=== PATIENT | male | born 1955 | race Caucasian/White ===

== ENCOUNTER 2016-08-21 08:42 | Outpatient (CLI) | payer BC ==
[~2016-08-21] VITALS: Ht 172.7 cm; Wt 103.5 kg
[~2016-08-21 08:42] MED LIST: AMOX500C2 PO; ETAN50PE SQ; MTP50T PO; MULT1CAP27 PO; SERT25TA PO; SULF1TAB35 PO
--- OUTSIDE RECORDS SUMMARY | 2016-08-21 08:47 | XMS REPORT | Continuity of Care Document ---
Author Author [facility] Organization [facility] Address Unknown Phone Unavailable Care Team Providers Care [facility] Winder Name Role Phone PCP Unavailable Source Comments Some departments are not documenting in the electronic medical record. If you do not see the information that you expected, contact Release of Information in the Health Information Management department at [phone] for further assistance in locating additional records.[facility] Active Allergies and Adverse Reactions Allergen [...]
[2016-08-21 08:48] VITALS: BP 137/75
[2016-08-21] MEDS ORDERED: BECL8.7A6 IH (09:01)
[2016-08-21] MEDS ORDERED: GINK60TA7 PO (09:01)
[2016-08-21] MEDS ORDERED: UBID100C17 PO (09:01)
[2016-08-21 09:48] LABS: BILIRUBIN,URINE NEGATIVE (NEGATIVE); KETONES,URINE NEGATIVE (NEGATIVE); LEUKOCYTE ESTERASE ,URINE NEGATIVE (NEGATIVE); NITRITE,URINE NEGATIVE (NEGATIVE); PH,URINE 6.5 (5-9); PROTEIN,URINE NEGATIVE (NEGATIVE); UROBILINOGEN,URINE NORMAL (NORMAL)
[2016-08-21 10:03] LABS: SQUAMOUS EPITHELIAL CELL,UR RARE /HPF
--- NOTE | 2016-08-21 14:04 | Diagnostic Imaging Report ---
PA and lateral views of the chest. INDICATION: Preoperative evaluation for brachytherapy. FINDINGS: There is a small left pleural effusion or pleural thickening. There is minimal atelectasis or scarring in the left lung base. The right lung is clear. The heart size is normal. No pneumothorax. The mediastinum and uziel appear unremarkable. IMPRESSION: Left basilar minimal atelectasis or scarring. There is associated left pleural scarring or tiny effusion. Dictated by: Dictated on workstation # [id number]
== END 2016-08-21 09:40 | disposition home or self-care (01) ==
LOC: PREOP 08:42
PROVIDERS: ATTEND Radiology Radiation Oncology
DX: Z01.818 Encounter for other preprocedural examination (principal); Z11.2 Encounter for screening for other bacterial diseases; C61 Malignant neoplasm of prostate
CPT/HCPCS: 71020; 81000; 87081; 93005

== ENCOUNTER 2016-08-28 06:00 | Day surgery (SDC) | payer BC ==
[~2016-08-28] VITALS: Ht 172.7 cm; Wt 103.5 kg
[~2016-08-28 06:00] MED LIST changes: +BECL8.7A6 IH; +GINK60TA7 PO; +UBID100C17 PO
--- OUTSIDE RECORDS SUMMARY | 2016-08-28 06:10 | XMS REPORT | Continuity of Care Document ---
Author Author [facility] Organization [facility] Address Unknown Phone Unavailable Care Team Providers Care Sustainable Agriculture Specialist Name Role Phone PCP Unavailable Source Comments Some departments are not documenting in the electronic medical record. If you do not see the information that you expected, contact Release of Information in the Health Information Management department at [phone] for further assistance in locating additional records.[facility] Active Allergies and Adverse Reactions [...]
--- OUTSIDE RECORDS SUMMARY | 2016-08-28 06:10 | XMS REPORT | Continuity of Care Document ---
Author Author [facility] Organization [facility] Address Unknown Phone Unavailable Care Team Providers Care Insole And Heel Stiffener Name Role Phone PCP Unavailable Source Comments Some departments are not documenting in the electronic medical record. If you do not see the information that you expected, contact Release of Information in the Health Information Management department at [phone] for further assistance in locating additional records.[facility] Active Allergies and Adverse Reactions Allergen Noted [...]
[2016-08-28] MEDS ORDERED: LEVOFLOXACIN 500 MG/100 ML IV 100 ML ONE (06:12)
[2016-08-28] MEDS ORDERED: LEVOFLOXACIN 500 MG/D5W 100 ML (PRE-MIX) IV ONE (06:45)
[2016-08-28] MEDS ORDERED: ROCURONIUM 50 MG/5 ML (ZEMURON) VIAL IV ONE (06:47)
[2016-08-28] MEDS ORDERED: LIDOCAINE PF 2% 10 ML (XYLOCAINE) AMP ONE (06:47)
[2016-08-28] MEDS ORDERED: proPOfol 200 MG/20 ML (DIPRIVAN) VIAL IV ONE (06:47)
[2016-08-28] MEDS ORDERED: LACTATED RINGERS 1,000 ML IV ONE ×2 (06:47→09:23)
[2016-08-28] MEDS ORDERED: ONDANSETRON 4 MG/2 ML (SDV) Z0FRAN ONE (06:47)
[2016-08-28] MEDS ORDERED: MIDAZOLAM 2 MG/2 ML (VERSED) VIAL ONE (06:47)
[2016-08-28] MEDS ORDERED: LIDOCAINE JELLY 2% (XYLOCAINE) 5 ML TUBE ONE (06:47)
[2016-08-28] MEDS ORDERED: fentaNYL INJECTION 100 MCG/2 ML AMP ONE (06:48)
--- NOTE | 2016-08-28 07:03 | Progress Note-Pre Operative ---
Pre-Operative Progress Note H&P Reviewed The H&P was reviewed, patient examined and no changes noted. Date H&P Reviewed: Aug 28, 2016 Time H&P Reviewed: 07:03 Pre-Operative Diagnosis: Ca Prostate SG BO MD Aug 28, 2016 7:03 am
--- NOTE | 2016-08-28 07:04 | Progress Note-Post Operative ---
Post-Operative Progess Note Pre-Operative Diagnosis Ca Prostate Post-Operative Diagnosis same Post-Op Procedure Note Date of Procedure: Aug 28, 2016 Name of Procedure: Brachytherapy, cystogram, Anesthesia Type SG Liu MD Aug 28, 2016 7:04 am
--- NOTE | 2016-08-28 07:05 | Discharge Inst-Urology ---
Discharge Inst-Urology Discharge Medications New, Converted, or Re-newed RX: RX on Chart Patient Instructions/Follow Up Plan Come to office Wednesday 9am to MELA brown. Please make appointment to been seen in office in 2 weeks. Discharge with brown and leg bag day time and large bag night time Showers, no bath Keep bowels soft and moving Increase oral fluids for 48 hours and then as needed. Diet and Activity as tolerated. If questions or concerns contact your physician Or seek help at emergency department. SG BO MD Aug 28, 2016 7:05 am
[2016-08-28 07:13] VITALS: BP 131/83
[2016-08-28] MEDS: LACTATED RINGERS 1,000 ML IV PRN ×2 (07:17→08:31)
[2016-08-28] MEDS ORDERED: LACTATED RINGERS 1,000 ML IV PRN (07:23)
[2016-08-28] MEDS ORDERED: SEVOFLURANE (ULTANE) 15 ML INHAL SOLN ONE ×2 (09:23→09:37)
[2016-08-28] MEDS ORDERED: MEPERIDINE (DEMEROL) INJ 50 MG/ML IVP PRN (10:00)
[2016-08-28] MEDS ORDERED: ONDANSETRON 4 MG/2 ML (SDV) Z0FRAN IVP PRN (10:00)
[2016-08-28] MEDS ORDERED: morphine INJ 10 MG/ML 1ML (SYR OR VIAL) ONE (10:05)
[2016-08-28] MEDS: morphine INJ 10 MG/ML 1ML (SYR OR VIAL) IVP PRN ×2 (10:13→10:22)
[2016-08-28 10:45] VITALS: BP 129/83
[2016-08-28] MEDS ORDERED: HYDR-3874 PO (11:00)
[2016-08-28] MEDS ORDERED: PHEN-640 PO (11:00)
[2016-08-28] MEDS ORDERED: CIPR-225 PO (11:00)
[2016-08-28 11:15] VITALS: BP 119/71
[2016-08-28 11:45] VITALS: BP 125/76
--- NOTE | 2016-08-28 17:07 | Diagnostic Imaging Report ---
Fluoroscopic view of the pelvis. INDICATION: Brachytherapy for prostate cancer. 30 cc of Omnipaque-300 and 24 seconds of fluoroscopy time was utilized. IMPRESSION: Provided image demonstrates Mendieta's catheter and contrast in the urinary bladder. There are fiducial markers below the bladder in the area of the prostate. Dictated by: Dictated on workstation # [id number]
== END 2016-08-28 12:15 | disposition home or self-care (01) ==
LOC: SDC 06:00
PROVIDERS: ATTEND Radiology Radiation Oncology
DX: C61 Malignant neoplasm of prostate (principal)
CPT/HCPCS: 0438T; 55875; 76965; 77290; 77318; 77332; 77336; 77470; 77778; 77790

== ENCOUNTER 2016-09-25 09:40 | Outpatient (RCR) | payer BC ==
--- OUTSIDE RECORDS SUMMARY | 2016-07-07 14:17 | XMS REPORT | Continuity of Care Document ---
Author Author [facility] Organization [facility] Address Unknown Phone Unavailable Care Team Providers Care Certified Driver Examiner Name Role Phone PCP Unavailable Source Comments Some departments are not documenting in the electronic medical record. If you do not see the information that you expected, contact Release of Information in the Health Information Management department at [phone] for further assistance in locating additional records.[facility] Active Allergies and Adverse Reactions Allergen Noted Date Severity Reactions Comments Penicillins 01/24/2005 Allergy recorded in SMS: PCN Current Medications Not on file Active Problems Not on file Social History Tobacco Use Types Packs/Day Years Used Date Never Assessed Plan of Care Health Maintenance Due Date Last Done Comments Physical (Comprehensive) 1962 Exam Pertussis Vaccine 1966 Tetanus Vaccine 1972 Colorectal Cancer 2005 Screening Shingles Vaccine 2015 Influenza Vaccine 04/16/2016 Results from Last 3 Months Not on file
[~2016-09-25 09:40] MED LIST changes: +CIPR-225 PO; +HYDR-3874 PO; +PHEN-640 PO
== END 2016-10-05 | disposition home or self-care (01) ==
LOC: ONC 09:40
PROVIDERS: ATTEND Radiology Radiation Oncology
DX: C61 Malignant neoplasm of prostate (principal)
CPT/HCPCS: 76873; 77290; 99215

== ENCOUNTER → 2016-11-24 | Outpatient (CLI) | payer BC ==
[2016-11-24 16:35] LABS: BLOOD UREA NITROGEN 14 MG/DL (7-18); BUN/CREATININE RATIO 20; GFR ESTIMATED > 60
== END ==
LOC: LAB 15:58
PROVIDERS: ATTEND Family Medicine
DX: R07.9 Chest pain, unspecified (principal)
CPT/HCPCS: 36415; 82565; 84520

== ENCOUNTER → 2016-11-26 | Outpatient (CLI) | payer BC ==
[~2016-11-26] MED LIST changes: +CATHETER FLUSH 10 ML SYR IV PRN; +IOHEXOL 350 MG/ML 150 ML (OMNIPAQUE 350) VIAL IV ONE; +NS 100 ML (IVPB) BAG IV ONE
--- NOTE | 2016-11-26 17:13 | Diagnostic Imaging Report ---
PROCEDURE: CT angiography of the chest with contrast. TECHNIQUE: Multiple contiguous axial images were obtained through the chest after uneventful bolus administration of intravenous contrast. Reconstructed CTA MIP acquisitions were also performed. INDICATION: Chest pressure, dizziness, shortness of air, prostate cancer, undergoing treatment. FINDINGS: There are no intraluminal pulmonary arterial filling defects. There were no findings of pulmonary arterial embolus. There is elevation of the right hemidiaphragm with subjacent basilar subsegmental atelectasis. Some mild linear scarring in the lung bases. Some heterogeneous air trapping present. No dominant blebs, bullae or cysts. No substantial bronchiectasis. There is no pneumothorax. The aorta is patent and nonaneurysmal. There is no thoracic effusion. No focal pneumonia. No hilar or mediastinal adenopathy. IMPRESSION: Negative for PE. Nonacute aorta. Chronic calcified benign pleural plaques and chronic interstitial lung disease and mild basilar atelectasis. No focal pneumonia. No acute abnormality. Dictated by: Dictated on workstation # [id number]
== END ==
LOC: RAD 15:31
PROVIDERS: ATTEND Family Medicine
DX: R07.9 Chest pain, unspecified (principal); M79.669 Pain in unspecified lower leg; C61 Malignant neoplasm of prostate
CPT/HCPCS: 71275

== ENCOUNTER → 2017-02-22 | Outpatient (CLI) | payer BC ==
[~2017-02-22] MED LIST changes: +APIX5TAB PO; -CATHETER FLUSH 10 ML SYR IV PRN; -IOHEXOL 350 MG/ML 150 ML (OMNIPAQUE 350) VIAL IV ONE; +MULT-1061 PO; -NS 100 ML (IVPB) BAG IV ONE
--- NOTE | 2017-02-22 18:14 | Diagnostic Imaging Report ---
INDICATION: Rheumatoid arthritis. EXAMINATION: Three views were obtained. FINDINGS: The alignment is normal. There is no fracture or dislocation. The soft tissues are unremarkable. IMPRESSION: No acute radiographic abnormality. Dictated by: Dictated on workstation # [id number]
--- NOTE | 2017-05-04 13:53 | Physician Query Clarification ---
PQ-Further Specificity Admission/Discharge Admission Date: Discharge Date: The medical record reflects the following clinical scenario: History/Risk Factors: RA Clinical Findings: RA of the elbow Treatment: xray rt knee Question: Can you further specify the laterality of the elbow with RA (rt, lt scar) per the clinical indicators above? The xray is of the rt knee. Please clarify if the diagnosis of RA of the elbow is not correct. Please document below. 1. Please document the laterality of the RA (lt, rt, scar) 2. Please confirm the site of the RA (elbow or knee) for this test or xray of the rt knee 3. Other, with explanation of the clinical findings. 4. Clinically undetermined, no explanation for the clinical findings. PHYSICIAN RESPONSE Can you specify per above: 1 In responding to this query, please exercise your independent professional judgment. The purpose of this communication is to more accurately reflect the complexity of your patients condition. The fact that a question is asked does not imply that any particular answer is desired or expected. Thank you for your timely response to this clarification. Requestors name: Anastasia THIS PHYSICIAN QUERY FORM IS A PERMANENT PART OF THE MEDICAL RECORD ANASTASIA CUEVAS May 04, 2017 13:53 RAHUL MOSES MD May 31, 2017 17:24
== END ==
LOC: RAD 16:45
PROVIDERS: ATTEND Family Medicine
DX: M05 Rheumatoid arthritis with rheumatoid factor (principal)
CPT/HCPCS: 73562

== ENCOUNTER 2017-02-23 13:46 | Outpatient (RCR) | payer BC ==
[~2017-02-23 13:46] MED LIST changes: -APIX5TAB PO; -MULT-1061 PO
[2017-04-08] MEDS ORDERED: APIX5TAB PO (07:50)
[2017-04-08] MEDS ORDERED: MULT-1061 PO (07:50)
== END 2017-05-15 | disposition home or self-care (01) ==
LOC: ONC 13:46
PROVIDERS: ATTEND Radiology Radiation Oncology
DX: C61 Malignant neoplasm of prostate (principal)
CPT/HCPCS: 99213

== ENCOUNTER → 2017-03-15 | Outpatient (CLI) | payer BC ==
[~2017-03-15] MED LIST changes: +APIX5TAB PO; +MULT-1061 PO
[2017-03-15 12:18] LABS: BASOPHILS % (AUTO) 0 % (0-10); EOSINOPHILS # (AUTO) 0.2 10^3/uL (0.0-0.3); EOSINOPHILS % (AUTO) 3 % (0-10); LYMPHOCYTES # (AUTO) 1.4 X 10^3 (1.0-4.0); LYMPHOCYTES % (AUTO) 18 % (12-44); MEAN CORPUSCULAR HEMOGLOBIN 31 PG (25-34); MEAN CORPUSCULAR HGB CONC 34 G/DL (32-36); MEAN CORPUSCULAR VOLUME 91 FL (80-99); MEAN PLATELET VOLUME 10.5 FL (7.4-10.4); MONOCYTES # (AUTO) 0.8 X 10^3 (0.0-1.0); MONOCYTES % (AUTO) 11 % (0-12); NEUTROPHILS # (AUTO) 5.1 X 10^3 (1.8-7.8); NEUTROPHILS % (AUTO) 68 % (42-75); PLATELET COUNT 207 10^3/uL (130-400); RED CELL DISTRIBUTION WIDTH 12.8 % (10.0-14.5); WHITE BLOOD COUNT 7.5 10^3/uL (4.3-11.0)
[2017-03-15 12:40] LABS: ALANINE AMINOTRANSFERASE 40 U/L (0-55); ALBUMIN 4.1 GM/DL (3.2-4.5); ANION GAP 8 MMOL/L (5-14); ASPARTATE AMINO TRANSFERASE 31 U/L (5-34); BILIRUBIN,TOTAL 0.7 MG/DL (0.1-1.0); BLOOD UREA NITROGEN 10 MG/DL (7-18); BUN/CREATININE RATIO 15; CALCIUM 9.2 MG/DL (8.5-10.1); CARBON DIOXIDE 27 MMOL/L (21-32); CHLORIDE 106 MMOL/L (98-107); CHOLESTEROL 157 MG/DL (< 200); CREATININE SERUM 0.68 MG/DL (0.60-1.30); DIRECT LDL 106 MG/DL (1-129); GFR ESTIMATED > 60; GLUCOSE 93 MG/DL (70-105); POTASSIUM 4.5 MMOL/L (3.6-5.0); SODIUM 141 MMOL/L (135-145); TRIGLYCERIDES 133 MG/DL (<150); VLDL CHOLESTEROL 27 MG/DL (5-40)
[2017-03-15 12:52] LABS: ERYTHROCYTE SEDIMENTATION RATE 2 MM/HR (0-30)
[2017-03-15 12:59] LABS: THYROID STIMULATING HORMONE 0.96 UIU/ML (0.35-4.94)
== END ==
LOC: CARD 10:33
PROVIDERS: ATTEND Internal Medicine Cardiovascular Disease
DX: I48.3 Typical atrial flutter (principal); R06.02 Shortness of breath; R00.2 Palpitations
CPT/HCPCS: 36415; 80053; 80061; 83735; 84443; 85025; 85652; 93306

== ENCOUNTER → 2017-03-23 | Outpatient (CLI) | payer BC ==
[~2017-03-23] VITALS: Ht 172.7 cm; Wt 103.4 kg
[~2017-03-23] MED LIST changes: -APIX5TAB PO; -MULT-1061 PO; +REGADENOSON 0.4 MG/5 ML SYR (LEXISCAN) IV ONE
[2017-03-23] MEDS: CATHETER FLUSH 10 ML SYR IV PRN ×2 (07:47→09:30)
[2017-03-23 09:28] VITALS: BP 115/75
--- NOTE | 2017-03-24 07:08 | STRESS TEST ---
DATE OF SERVICE: 03/23/2017 PROCEDURE: Resting and post regadenoson technetium 99M tetrofosmin SPECT CT imaging. ORDERING PHYSICIAN: Kylah Andrade MD PRIMARY PHYSICIAN: Nathen Lopez MD OTHER PHYSICIAN: CLINICAL DIAGNOSES: Shortness of breath, palpitations, atrial flutter. Baseline images were carried out after injection of 10.75 mCi of technetium 99M tetrofosmin. This was followed by 0.4 mg regadenoson and 32.1 mCi of technetium 99M tetrofosmin for stress imaging. The electrocardiogram showed atrial flutter with variable atrioventricular conduction. The electrocardiogram did not change significantly with the regadenoson infusion. The patient noted mild shortness of breath following regadenoson infusion, which resolved shortly thereafter. Review of images at rest and following stress does not indicate any significant perfusion defects consistent with significant myocardial ischemia or infarction. Gated images show well preserved global left ventricular systolic function without regional wall motion abnormality. Left ventricular ejection fraction is calculated to be 52%. Left ventricular end diastolic volume is 76 mL. TID is absent (1.07). CONCLUSIONS: 1. No evidence of significant myocardial ischemia or infarction on this study. 2. Normal regional wall motion. 3. Normal global left ventricular systolic function with a calculated ejection fraction of 52%. 4. The patient remained in atrial flutter throughout the study. Job ID: [id number] DocumentID: [id number] Dictated Date: 03/23/2017 15:17:12 Cattle Brander Date: 03/24/2017 04:35:03 Dictated By: KYLHA ANDRADE MD, MA, FACP, FACC,
== END ==
LOC: CARD 07:30
PROVIDERS: ATTEND Internal Medicine Cardiovascular Disease
DX: I48.3 Typical atrial flutter (principal); R06.02 Shortness of breath; R00.2 Palpitations
CPT/HCPCS: 78452; 93017

== ENCOUNTER 2017-04-08 07:03 | Day surgery (SDC) | payer BC ==
[~2017-04-08] VITALS: Ht 172.7 cm; Wt 103.4 kg
[~2017-04-08 07:03] MED LIST changes: -REGADENOSON 0.4 MG/5 ML SYR (LEXISCAN) IV ONE
[2017-04-08] MEDS ORDERED: LIDOCAINE 2% VISCOUS 15 ML UDC ONE (07:04)
[2017-04-08] MEDS ORDERED: NS IV 1000 ML 1,000 ML ONE (07:04)
--- OUTSIDE RECORDS SUMMARY | 2017-04-08 07:06 | XMS REPORT | Clinical Summary ---
Author Author [facility] Organization [facility] Address Unknown Phone Unavailable Care Team Providers Care Oil Deliverer Name Role Phone PCP Unavailable Source Comments Some departments are not documenting in the electronic medical record. If you do not see the information that you expected, contact Release of Information in the Health Information Management department at [phone] for further assistance in locating additional records.[facility] Allergies Active Allergy Reactions Severity Noted Date Comments Penicillins 01/24/2005 Allergy recorded in SMS: PCN Current Medications Not on file Active Problems Not on file Social History Tobacco Use Types Packs/Day Years Used Date Never Assessed Sex Assigned at Date Recorded Not on file Last Filed Vital Signs Not on file Plan of Treatment Health Maintenance Due Date Last Done Comments HEPATITIS C SCREENING 1955 PHYSICAL (COMPREHENSIVE) 1962 EXAM PERTUSSIS VACCINE 1966 TETANUS VACCINE 1972 COLORECTAL CANCER 2005 SCREENING SHINGLES VACCINE 2015 INFLUENZA VACCINE 04/16/2017 Results Not on filefrom Last 3 Months
[2017-04-08] MEDS ORDERED: NS IV 1000 ML 1,000 ML IV SCH (07:15)
[2017-04-08 07:21] VITALS: BP 135/91
[2017-04-08] MEDS ORDERED: MULT-1061 PO (07:50)
[2017-04-08] MEDS ORDERED: APIX5TAB PO (07:50)
[2017-04-08 07:57] LABS: MEAN PLATELET VOLUME 10.6 FL (7.4-10.4); RED BLOOD COUNT 4.9 10^6/uL (4.35-5.85); RED CELL DISTRIBUTION WIDTH 12.8 % (10.0-14.5); WHITE BLOOD COUNT 7.2 10^3/uL (4.3-11.0)
[2017-04-08 08:00] LABS: PROTHROMBIN TIME PATIENT 13.6 SEC (12.2-14.7)
[2017-04-08] MEDS ORDERED: proPOfol 200 MG/20 ML (DIPRIVAN) VIAL IV ONE (08:05)
[2017-04-08] MEDS ORDERED: MIDAZOLAM 5 MG/5 ML (VERSED) VIAL ONE (08:05)
[2017-04-08 08:08] LABS: ALANINE AMINOTRANSFERASE 34 U/L (0-55); ALBUMIN 3.8 GM/DL (3.2-4.5); ANION GAP 10 MMOL/L (5-14); ASPARTATE AMINO TRANSFERASE 27 U/L (5-34); BILIRUBIN,TOTAL 0.8 MG/DL (0.1-1.0); BLOOD UREA NITROGEN 12 MG/DL (7-18); BUN/CREATININE RATIO 20; CALCIUM 8.7 MG/DL (8.5-10.1); CARBON DIOXIDE 23 MMOL/L (21-32); CHLORIDE 108 MMOL/L (98-107); CHOLESTEROL 161 MG/DL (< 200); CREATININE SERUM 0.61 MG/DL (0.60-1.30); DIRECT LDL 116 MG/DL (1-129); GFR ESTIMATED > 60; GLUCOSE 98 MG/DL (70-105); POTASSIUM 3.8 MMOL/L (3.6-5.0); SODIUM 141 MMOL/L (135-145); TOTAL PROTEIN 6.6 GM/DL (6.4-8.2); TRIGLYCERIDES 100 MG/DL (<150); VLDL CHOLESTEROL 20 MG/DL (5-40)
[2017-04-08 09:35] VITALS: BP 130/91
[2017-04-08 09:48] VITALS: BP 101/71
--- NOTE | 2017-04-08 10:03 | Progress Note-Standard ---
Standard Progress Note Progress Notes/Assess & Plan Date Seen by Provider: Apr 08, 2017 Time Seen by Provider: 09:20 Final Diagnosis Called to [facility] for VINAYAK/Cardioversion sedation. Spoke with the patient, history obtained. Sedation started, 3 mg versed and 120 mg propofol given for procedure. Tolerated well. Care to [facility] DALE CRUZ CRNA Apr 08, 2017 10:03
--- NOTE | 2017-04-08 11:59 | Cardiac Procedure Note-CS/ASA ---
Pre-Procedure Note Pre-Op Procedure Note H&P Reviewed The H&P was reviewed, patient examined and no changes noted. Date H&P Reviewed: Apr 08, 2017 Time H&P Reviewed: 09:15 Conscious Sedation Pre-Proced Time Reviewed: 09:15 ASA Class: 3 Airway Mallampati Classification: ([place] appropriate class) I. II. III, IV Lungs Heart ASA score ASA 1: a normal healthy patient ASA 2: a patient with a mild systemic disease (mid diabetes, controlled hypertension, obesity ASA 3: a patient with a severe systemic disease that limits activity (angina , COPD, prior Myocardial infarction) ASA 4: a patient with an incapacitating disease that is a constant threat to life (CHF, renal failure) ASA 5: a moribund patient not expected to survive 24 hrs. (ruptured aneurysm) ASA 6: a declared brain patient whose organs are being harvested. For emergent operations, add the letter E after the classification Grade 4 Sedation Plan: Analgesia, Amnesia, Plan communicated to team members, Discussed options with patient/fam, Discussed risks with patient/fam Note The patient is an appropriate candidate to undergo the planned procedure, sedation, and anesthesia. The patient immediately re-assessed prior to indication. JACOB HARRELL MD FACP FAC CCDS Apr 08, 2017 11:59
--- NOTE | 2017-04-08 12:01 | Discharge Inst-Cardiology ---
Discharge Inst-Cardiac Discharge Medications Continued Medications: Apixaban (Eliquis) 5 Mg Tablet 5 MG PO BID, TAB Beclomethasone Dipropionate (Qvar) 8.7 Gm Aer.w.adap 1 PUFF IH BID, GM Etanercept (Enbrel) 50 Mg/1 Ml Pen.injctr 50 MG SQ WEEKLY takes on Wednesday Metoprolol Tartrate (Metoprolol Tartrate 50 Mg) 50 Mg Tablet 50 MG PO BID Multivit-Min/FA/Lycopen/Lutein (Centrum Silver Men Tablet) 1 Each Tablet 1 EACH PO ONCE, TAB Sertraline Hcl (Sertraline Hcl) 25 Mg Tablet 25 MG PO DAILY Ubidecarenone (Coq-10) Unknown Strength Capsule 200 MG PO DAILY, CAP Patient Instructions Patient Instructions: Fllow up with Dr Andrade next week Activity & Diet Discharge Diet: Cardiac Diet JACOB ANDRADE MD FACP FAC CCDS Apr 08, 2017 12:01
--- NOTE | 2017-04-08 17:53 | OPERATIVE REPORT ---
DATE OF SERVICE: 04/08/2017 EXTERNAL ELECTRICAL CARDIOVERSION REPORT PREOPERATIVE DIAGNOSIS: Atrial flutter. POSTOPERATIVE DIAGNOSIS: Sinus rhythm. PROCEDURE: External electrical cardioversion. The patient is a 61-year-old gentleman who has atrial flutter from which he has been symptomatic. He has been on oral anticoagulation with Apixaban since the 03/09/2017. He comes in for an elective electrical cardioversion today. We did attempt transesophageal echocardiogram prior to the study, but we were not able to pass the probe. Given the patient's chronic anticoagulation status and history of ankylosing spondylitis, we did not make any aggressive attempts at transesophageal echocardiography. He has been fully anticoagulated, without any interruptions for 4 weeks. We proceeded with external electrical cardioversion. A synchronized 50 joules shock was given which restored atrial flutter to normal sinus rhythm. He tolerated the procedure well. Job ID: [id number] DocumentID: [id number] Dictated Date: 04/08/2017 09:46:04 Display Director Date: 04/08/2017 14:50:16 Dictated By: JACOB HARRELL MD, MA, FACP, FACC,
== END 2017-04-08 14:30 | disposition home or self-care (01) ==
LOC: CATH 07:03 → ICU 10:05 → CATH 14:30
PROVIDERS: ATTEND Nurse Practitioner Family
DX: I48.92 Unspecified atrial flutter (principal); R06.02 Shortness of breath; E66.9 Obesity, unspecified; J45.909 Unspecified asthma, uncomplicated; Z80.42 Family history of malignant neoplasm of prostate; Z85.46 Personal history of malignant neoplasm of prostate; Z79.01 Long term (current) use of anticoagulants; Z79.899 Other long term (current) drug therapy; Z68.34 Body mass index [BMI] 34.0-34.9, adult
CPT/HCPCS: 36415; 80053; 80061; 85027; 85610; 85730; 87081; 92960; 93005

== ENCOUNTER 2017-05-21 19:34 | Outpatient (CLI) | payer BC ==
[~2017-05-21 19:34] MED LIST changes: +APIX5TAB PO; +MULT-1061 PO
== END 2017-05-22 06:35 | disposition home or self-care (01) ==
LOC: SLEEP 19:34
PROVIDERS: ATTEND Otolaryngology Otolaryngology/Facial Plastic Surgery
DX: R06.83 Snoring (principal); G47.10 Hypersomnia, unspecified
CPT/HCPCS: 95811

== ENCOUNTER → 2018-01-31 | Outpatient (CLI) | payer BC ==
[~2018-01-31] MED LIST changes: +HYDR-3870 PO; -HYDR-3874 PO
== END ==
LOC: CARD 08:10
PROVIDERS: ATTEND Nurse Practitioner Family
DX: R06.09 Other forms of dyspnea (principal); I48.0 Paroxysmal atrial fibrillation; I10 Essential (primary) hypertension; G47.33 Obstructive sleep apnea (adult) (pediatric); E66.9 Obesity, unspecified; I07.1 Rheumatic tricuspid insufficiency
CPT/HCPCS: 93306

== ENCOUNTER 2018-05-02 09:45 | Inpatient (IN) | payer BC ==
[~2018-05-02] VITALS: Ht 172.7 cm; Wt 103.4 kg
[2018-05-02] MEDS ORDERED: NS IV 1000 ML 1,000 ML IV ONE (10:23)
[2018-05-02] MEDS ORDERED: KETOROLAC 30 MG/ML VIAL IVP STA (10:23)
[2018-05-02] MEDS ORDERED: VANCOMYCIN INJECTION 1,000 MG in NS (IVPB) 250 ML IV ONE (10:30)
[2018-05-02] MEDS ORDERED: ACETAMINOPHEN 500 MG TAB (TYLENOL) PO ONE (10:45)
[2018-05-02 10:53] LABS: BASOPHILS % (AUTO) 0 % (0-10); EOSINOPHILS % (AUTO) 0 % (0-10); HEMATOCRIT 40 % (40-54); HEMOGLOBIN 13.6 G/DL (13.3-17.7); LYMPHOCYTES # (AUTO) 0.8 X 10^3 (1.0-4.0); LYMPHOCYTES % (AUTO) 3 % (12-44); MEAN CORPUSCULAR HEMOGLOBIN 31 PG (25-34); MEAN CORPUSCULAR HGB CONC 34 G/DL (32-36); MEAN CORPUSCULAR VOLUME 91 FL (80-99); MEAN PLATELET VOLUME 10.5 FL (7.4-10.4); MONOCYTES # (AUTO) 2.3 X 10^3 (0.0-1.0); MONOCYTES % (AUTO) 10 % (0-12); NEUTROPHILS # (AUTO) 20.2 X 10^3 (1.8-7.8); NEUTROPHILS % (AUTO) 87 % (42-75); PLATELET COUNT 162 10^3/uL (130-400); RED BLOOD COUNT 4.39 10^6/uL (4.35-5.85); RED CELL DISTRIBUTION WIDTH 12.9 % (10.0-14.5); WHITE BLOOD COUNT 23.2 10^3/uL (4.3-11.0)
[2018-05-02 11:07] LABS: INR 1.6 (0.8-1.4); PROTHROMBIN TIME PATIENT 19.3 SEC (12.2-14.7)
[2018-05-02 11:14] LABS: ALANINE AMINOTRANSFERASE 28 U/L (0-55); ALBUMIN 3.8 GM/DL (3.2-4.5); ALKALINE PHOSPHATASE 52 U/L (40-136); BILIRUBIN,TOTAL 1.7 MG/DL (0.1-1.0); BUN/CREATININE RATIO 16; CALCIUM 8.9 MG/DL (8.5-10.1); CARBON DIOXIDE 26 MMOL/L (21-32); CHLORIDE 104 MMOL/L (98-107); CREATININE SERUM 0.68 MG/DL (0.60-1.30); GFR ESTIMATED > 60; GLUCOSE 108 MG/DL (70-105); POTASSIUM 3.6 MMOL/L (3.6-5.0); SODIUM 137 MMOL/L (135-145); TOTAL PROTEIN 6.5 GM/DL (6.4-8.2)
--- NOTE | 2018-05-02 11:41 | Diagnostic Imaging Report ---
PROCEDURE: CT left lower extremity without contrast. TECHNIQUE: Multiple contiguous axial images were obtained through the left lower extremity without the use of intravenous contrast. Sagittal and coronal reformations were then performed. INDICATION: Staph infection in the left lower leg 4-5 weeks ago. Patient now complains of left knee pain and redness. FINDINGS: There is a large amount of edema identified in the pre-patellar subcutaneous tissues. Moderate subcutaneous edema extends below the knee into the left lower extremity. No definite superficial or deep soft tissue fluid collection or abscess is seen. No soft tissue gas is identified. No bony destructive changes are seen. No significant knee joint effusion is identified. IMPRESSION: Moderate subcutaneous edema consistent with cellulitis. No soft tissue gas is seen. No fluid collection is identified. No bony destructive changes are seen. Dictated by: Dictated on workstation # [id number]
[2018-05-02 11:44] LABS: BAND NEUTROPHILS 0 %; BASOPHILS % (MANUAL) 0 %; EOSINOPHILS % (MANUAL) 0 %; LYMPHOCYTES % (MANUAL) 3 %; MONOCYTES % (MANUAL) 2 %; NEUTROPHILS % (MANUAL) 95 %; RBC MORPH NORMAL
[2018-05-02 11:51] VITALS: BP 106/61
--- NOTE | 2018-05-02 11:51 | Diagnostic Imaging Report ---
PATIENT HISTORY: History of infection in the left lower leg 4 weeks ago. Now left knee pain, redness and swelling. TECHNIQUE: 3 views of the left knee COMPARISON: None FINDINGS: No acute fracture or dislocation is seen in the left knee. Alignment appears normal. The joint spaces are preserved. There is a small left knee joint effusion. Marked anterior soft tissue edema is seen. No soft tissue gas is seen. IMPRESSION: Small left knee joint effusion with marked anterior soft tissue edema. No acute osseous abnormality is seen. Dictated by: Dictated on workstation # [id number]
--- NOTE | 2018-05-02 12:35 | ED Lower Extremity ---
General Chief Complaint: Lower Extremity Stated Complaint: SWOLLEN KNEE Nursing Triage Note: PT STATES HE HAD A STAPH INFECTION IN LT LOWER LEG ABOUT 4-5 WKS AGO. PT WAS MOWING GRASS AND DOING YARD WORK YESTERDAY, PUSH MOWER AND RIDER. CC TODAY OF LT KNEE PAIN, REDNESS AND SWELLING. PT WAS RUNNING A FEVER OF 103 YESTERDAY BUT TOOK NOTHING FOR IT, 102.6 AT TRIAGE. Nursing Sepsis Screen: Possible Sepsis Risk Source: patient History of Present Illness Date Seen by Provider: May 02, 2018 Time Seen by Provider: 10:25 Initial Comments PT ARRIVES VIA POV FROM HOME C/O PAIN, REDNESS, SWELLING TO RIGHT KNEE C/O FEVER OF 103 SINCE YESTERDAY PT STATES HE WAS TREATED FOR PRESUMED "STAPH" INFECTION OF LEFT LOWER LEG 4-5 WEEKS AGO NO INJURY, NO WOUNDS/SORES OR ANY DRAINAGE TOOK KEFLEX X 7 DAYS STATES THOSE SYMPTOMS RESOLVED STATES HIS KNEE WAS "A LITTLE PUFFY" AT THAT TIME, BUT WAS NOT EVER PAINFUL PT STATES OVER THE WEEKEND, STARTING ON Wednesday04/30/18, HE BEGAN TO HAVE A LITTLE PAIN AND SWELLING TO KNEE YESTERDAY, HE BEGAN TO HAVE INCREASED PAIN TO KNEE--MOWED YARD ALL DAY WITH BOTH PUSH MOWER AND RIDING MOWER BEGAN RUNNING OF FEVER OF 103 YESTERDAY STATES HE STOPPED SWEATING AROUND 1500 YESTERDAY TODAY HE CAN NOT BEND KNEE AND CAN BARELY PUT ANY WEIGHT ON KNEE NO KNOWN INJURY NO HISTORY OF SIMILAR, BUT STATES HE HAS HAD PRESUMED "STAPH" INFECTION A FEW TIMES IN THE PAST, ONCE EVERY FEW YEARS. PT IS ON ENBREL FOR ANKYLOSING SPONDYLITIS PCP: DR. MOSES Allergies and Home Medications Allergies Coded Allergies: No Known Drug Allergies (Unverified , 09/06/11) Home Medications Apixaban 5 Mg Tablet, 5 MG PO BID, (Reported) Beclomethasone Dipropionate 10.6 Gm Hfa.aeroba, 1 PUFF INH BID, (Reported) Etanercept 50 Mg/1 Ml Pen.injctr, 50 MG INJ Bassett, (Reported) Metoprolol Succinate 200 Mg Tab.er.24h, 200 MG PO DAILY, (Reported) Multivit-Min/FA/Lycopen/Lutein 1 Each Tablet, 1 TAB PO DAILY, (Reported) Sertraline HCl 50 Mg Tablet, 25 MG PO DAILY, (Reported) TAKES 1/2 (50MG) TABLET Ubidecarenone 200 Mg Capsule, 200 MG PO DAILY, (Reported) Patient Home Medication List Home Medication List Reviewed: Yes Review of Systems Constitutional: see HPI, fever EENTM: no symptoms reported Respiratory: no symptoms reported Cardiovascular: no symptoms reported Gastrointestinal: no symptoms reported Genitourinary: no symptoms reported Musculoskeletal: see HPI Skin: see HPI Psychiatric/Neurological: No Symptoms Reported Past Pbzyzgc-Ememmw-Mvijch Hx Patient Social History Alcohol Use: Denies Use Recreational Drug Use: No Smoking Status: Never a Smoker Recent Foreign Travel: No Contact w/Someone Who Travel: No Recent Infectious Disease Expo: No Recent Hopitalizations: No Immunizations Up To Date Tetanus Booster (TDap): More than 5yrs Date of Pneumonia Vaccine: Apr 28, 2006 Date of Influenza Vaccine: May 21, 2016 Seasonal Allergies Seasonal Allergies: Yes (SOMETIMES) Past Medical History Surgeries: Yes (RIGHT HIP REPAIR, PROSTATE SEEDS IMPLANTED/BRACHYTHERAPY; CARDIOVERSION 03/2017; PROSTATE BIOPSY) Adenoidectomy, Cardiac, Gallbladder, Orthopedic, Tonsillectomy, Vasectomy Respiratory: Yes Asthma Cardiac: Yes (ATRAIL FLUTTER--S/P CARDIOVERSION 03/2017) Atrial Fibrillation, Irregular Heartbeat Neurological: No Genitourinary: Yes (PROSTATE CANCER) Prostate Problems Gastrointestinal: Yes (RT INGUINAL HERNIA) Abdominal Hernia Musculoskeletal: Yes (JOINT PROBLEMS; ANKLYOSING SPONDYLITIS) Arthritis, Chronic Back Pain Endocrine: No Loss of Vision: Bilateral Hearing Impairment: Denies Cancer: Yes Prostate Did You Recieve Any Treatments: Yes (BRACHYTHERAPY) Psychosocial: Yes Bipolar, Depression Integumentary: Yes ("STAPH" INFECTION PRESUMED) Blood Disorders: No Physical Exam Vital Signs Vital Signs - First Documented 05/02/18 10:16 Temp 102.6 Pulse 90 Resp 22 B/P (MAP) 112/65 (81) Pulse Ox 97 O2 Delivery Room Air Capillary Refill : Less Than 3 Seconds Height, Weight, BMI Height: 5'8.00" Weight: 228lbs. 0.0oz. 103.844995ih; 34.7 BMI Method:Stated General Appearance: WD/WN, no apparent distress Cardiovascular: regular rate, rhythm, no murmur Respiratory: normal breath sounds, no respiratory distress, no accessory muscle use Gastrointestinal: normal bowel sounds Legs: left leg other (LEFT KNEE WITH MARKED SWELLING, WARMTH, ERYTHEMA, VERY LIMITED ROM. DISTAL MOTOR/SENSORY/VASCULAR INTACT. ) Knees: left knee other ( ABOVE) Ankles: left ankle normal inspection Feet: left foot normal inspection Neurologic/Tendon: normal sensation, normal motor functions, normal tendon functions Neurologic/Psychiatric: traveling nurse II-XII nml as tested, no motor/sensory deficits, alert, normal mood/affect, oriented x 3 Skin: normal color, warm/dry, other ( ABOVE) Procedures/Interventions Suture Size: 4-0 Progress/Results/Core Measures Results/Orders Lab Results Laboratory Tests Test 05/02/18 10:35 05/02/18 12:10 Range/Units White Blood Count 23.2 H 4.3-11.0 10^3/uL Red Blood Count 4.39 4.35-5.85 10^6/uL Hemoglobin 13.6 13.3-17.7 G/DL Hematocrit 40 40-54 % Mean Corpuscular Volume 91 80-99 FL Mean Corpuscular Hemoglobin 31 25-34 PG Mean Corpuscular Hemoglobin Concent 34 32-36 G/DL Red Cell Distribution Width 12.9 10.0-14.5 % Platelet Count 162 130-400 10^3/uL Mean Platelet Volume 10.5 H 7.4-10.4 FL Neutrophils (%) (Auto) 87 H 42-75 % Lymphocytes (%) (Auto) 3 L 12-44 % Monocytes (%) (Auto) 10 0-12 % Eosinophils (%) (Auto) 0 0-10 % Basophils (%) (Auto) 0 0-10 % Neutrophils # (Auto) 20.2 H 1.8-7.8 X 10^3 Lymphocytes # (Auto) 0.8 L 1.0-4.0 X 10^3 Monocytes # (Auto) 2.3 H 0.0-1.0 X 10^3 Eosinophils # (Auto) 0.0 0.0-0.3 10^3/uL Basophils # (Auto) 0.0 0.0-0.1 10^3/uL Neutrophils % (Manual) 95 % Lymphocytes % (Manual) 3 % Monocytes % (Manual) 2 % Eosinophils % (Manual) 0 % Basophils % (Manual) 0 % Band Neutrophils 0 % Blood Morphology Comment NORMAL Prothrombin Time 19.3 H 12.2-14.7 SEC INR Comment 1.6 H 0.8-1.4 Activated Partial Thromboplast Time 42 H 24-35 SEC Sodium Level 137 135-145 MMOL/L Potassium Level 3.6 3.6-5.0 MMOL/L Chloride Level 104 98-107 MMOL/L Carbon Dioxide Level 26 21-32 MMOL/L Anion Gap 7 5-14 MMOL/L Blood Urea Nitrogen 11 7-18 MG/DL Creatinine 0.68 0.60-1.30 MG/DL Estimat Glomerular Filtration Rate > 60 BUN/Creatinine Ratio 16 Glucose Level 108 H 70-105 MG/DL Lactic Acid Level 1.00 0.50-2.00 MMOL/L Calcium Level 8.9 8.5-10.1 MG/DL Corrected Calcium 9.1 8.5-10.1 MG/DL Total Bilirubin 1.7 H 0.1-1.0 MG/DL Aspartate Amino Transf (AST/SGOT) 26 5-34 U/L Alanine Aminotransferase (ALT/SGPT) 28 0-55 U/L Alkaline Phosphatase 52 40-136 U/L Total Protein 6.5 6.4-8.2 GM/DL Albumin 3.8 3.2-4.5 GM/DL Body Fluid Source SYNOVIAL Body Fluid Color RED Body Fluid Appearance MKD BLDY Body Fluid WBC 30930 /uL Body Fluid RBC 08644 /uL Body Fluid Polynuclear WBCs 99 % Body Fluid Mononuclear WBCs 0 % Body Fluid Lymphocytes 1 % Body Fluid Other Cells 0 % Body Fluid Crystals NOT SEEN Micro Results Microbiology 05/02/18 Gram Stain - Preliminary, Resulted 05/02/18 Anaerobic Culture, Resulted Pending 05/02/18 Body Fluid Culture, Resulted Pending 05/02/18 Fungal Culture 1, Resulted Pending My Orders Orders - NOELLE HERNANDEZ DO Saline Lock/Iv-Start (05/02/18 10:23) Ct Extremity Lower Left Wo (05/02/18 10:23) Cbc With Automated Diff (05/02/18 10:23) Comprehensive Metabolic Panel (05/02/18 10:23) Lactic Acid Analyzer (05/02/18 10:23) Protime With Inr (05/02/18 10:23) Partial Thromboplastin Time (05/02/18 10:23) Blood Culture (05/02/18 10:23) Saline Lock/Iv-Start (05/02/18 10:23) Ns Iv 1000 Ml (Sodium Chloride 0.9%) (05/02/18 10:23) Ketorolac Injection (Toradol Injection) (05/02/18 10:23) Vancomycin Injection (Vancomycin Injecti (05/02/18 10:30) Knee, Left, 3 Views (05/02/18 10:31) Acetaminophen Tablet (Tylenol Tablet) (05/02/18 10:45) Manual Differential (05/02/18 10:35) Body Fluid Culture (05/02/18 12:17) Body Fluid Cell Count (05/02/18 12:17) Anaerobic Culture (05/02/18 12:10) Medications Given in ED Current Medications Medications Dose Ordered Sig/Miki Route Start Time Stop Time Status Last Admin Dose Admin Acetaminophen 1,000 mg ONCE ONCE PO 05/02/18 10:45 05/02/18 10:46 DC 05/02/18 10:45 1,000 MG Sodium Chloride 1,000 ml @ 0 mls/hr Q0M ONCE IV 05/02/18 10:23 05/02/18 10:26 DC 05/02/18 10:44 1,000 MLS/HR Vancomycin HCl 1000 mg/Sodium Chloride 250 ml @ 250 mls/hr ONCE ONCE IV 05/02/18 10:30 05/02/18 11:29 DC 05/02/18 11:47 250 MLS/HR Vital Signs/I&O 05/02/18 05/02/18 05/02/18 05/02/18 10:16 10:45 10:45 11:51 Temp 102.6 102.6 102.6 100.6 Pulse 90 83 Resp 22 20 B/P (MAP) 112/65 (81) 106/61 (76) Pulse Ox 97 95 O2 Delivery Room Air Room Air Blood Pressure Mean: 76 Progress Progress Note : Progress Note UNEVENTFUL ER STAY Diagnostic Imaging Comments CT SCAN LEFT LOWER EXT--SIGNIFICANT SOFT TISSUE EDEMA, NO JOINT EFFUSION--PER RADIOLOGIST REPORT AT 1145 XRAYS LEFT KNEE--SOFT TISSUE SWELLING, SMALL JOINT EFFUSION OTHERWISE NO ACUTE BONY PROCESS, PER RADIOLOGIST REPORT AT 1250 Reviewed: Reviewed by Me Departure Communication (Admissions) 1150--SPOKE WITH DR. ST, ACCEPTS PT FOR ADMIT 1157--SPOKE WITH DR. SANCHEZ FOR ORTHO CONSULT, WILL BE DOWN TO SEE PT 1204--DR. SANCHEZ HERE TO SEE PT, AND PERFORM JOINT ASPIRATION. Impression Primary Impression: Cellulitis of left knee Additional Impressions: Sepsis H/O immunosuppressive therapy Disposition: ADMITTED INPATIENT Condition: Stable Admissions Decision to Admit Reason: Admit from ER (General) Decision to Admit/Date: May 02, 2018 Time/Decision to Admit Time: 11:50 Departure-Patient Inst. Referrals: RAHUL MOSES MD (PCP/Family) Primary Care Physician NOELLE HERNANDEZ DO May 02, 2018 12:35
[2018-05-02 13:02] LABS: BODY FLUID APPEARENCE MKD BLDY; BODY FLUID COLOR RED; BODY FLUID RBC COUNT 57000 /uL; BODY FLUID SOURCE SYNOVIAL; BODY FLUID WBC TOTAL COUNT 16000 /uL
[2018-05-02 13:14] LABS: BF OTHER CELLS 0 %; LYMPHOCYTES,BODY FLUID 1 %
--- OUTSIDE RECORDS SUMMARY | 2018-05-02 13:15 | XMS REPORT | Clinical Summary ---
Author Author [facility] Organization [facility] Address Unknown Phone Unavailable Care Team Providers Care Aerospace Project Manager Name Role Phone PCP Unavailable Source Comments Some departments are not documenting in the electronic medical record. If you do not see the information that you expected, contact Release of Information in the Health Information Management department at [phone] for further assistance in locating additional records.[facility] Allergies Active Allergy Reactions Severity Noted Date [...] PHYSICAL (COMPREHENSIVE) 1962 EXAM PERTUSSIS VACCINE 1966 HIV SCREENING 1970 TETANUS VACCINE 1972 COLORECTAL CANCER 2005 SCREENING SHINGLES RECOMBINANT 2005 VACCINE (1 of 2) INFLUENZA VACCINE 05/16/2018 Results Not on filefrom Last 3 Months
--- OUTSIDE RECORDS SUMMARY | 2018-05-02 13:16 | XMS REPORT | Continuity of Care Document ---
Author Author [facility] Organization [facility] Address Unknown Phone Unavailable Allergies Active Description Code Type Severity Reaction Onset Reported/Identified Relationship to Patient Clinical Status Yes No Known Drug Allergies [id number] Drug Allergy Unknown N/A 2011 Medications There is no data. 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 12/01/2015 IRWIN PATTON APRN Ot S81.012A LACERATION WITHOUT FOREIGN BODY, LEFT KN 12/01/2015 IRWIN PATTON APRN Ot W20.8XXA OTH CAUSE OF STRIKE BY THROWN, PROJECTED 12/01/2015 IRWIN PATTON APRN Ot Y92.[address] IN [facility] NON-INSTITUT (PRIVATE 12/01/2015 IRWIN PATTON APRN Ot Y99.8 OTHER EXTERNAL CAUSE STATUS 12/03/2015 IRWIN PATTON APRN Ot 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 12/03/2015 IRWIN PATTON APRN Ot S81.012A LACERATION WITHOUT FOREIGN BODY, LEFT KN 12/03/2015 IRWIN PATTON APRN Ot W20.8XXA OTH CAUSE OF STRIKE BY THROWN, PROJECTED 12/03/2015 IRWIN PATTON APRN Ot Y92.[address] IN [facility] NON-INSTITUT (PRIVATE 12/03/2015 IRWIN PATTON FITNESS/WELLNESS DIRECTOR Ot Y99.8 OTHER EXTERNAL CAUSE STATUS 12/12/2015 JOSE DO, FILOMENA L Ot S81.012D LACERATION WITHOUT FOREIGN BODY, LEFT KN 12/13/2015 JOSE DO, FILOMENA L Ot S81.012D LACERATION WITHOUT FOREIGN BODY, LEFT KN 06/29/2016 SG BO MD Ot C61 MALIGNANT NEOPLASM OF PROSTATE 07/08/2016 EULALIO JACOB MD Ot C61 MALIGNANT NEOPLASM OF PROSTATE 07/13/2016 SG BO MD A Ot C61 MALIGNANT NEOPLASM OF PROSTATE 08/05/2016 EULALIO JACOB MD E Ot C61 MALIGNANT NEOPLASM OF PROSTATE 08/21/2016 EULALIO JACOB MD Ot C61 MALIGNANT NEOPLASM OF PROSTATE 08/21/2016 EULALIO JACOB MD Ot Z01.818 ENCOUNTER FOR OTHER PREPROCEDURAL EXAMIN 08/21/2016 EULALIO JACOB MD Ot Z11.2 ENCOUNTER FOR SCREENING FOR OTHER BACTER 08/24/2016 EULALIO JACOB MD Ot C61 MALIGNANT NEOPLASM OF PROSTATE 08/24/2016 EULALIO JACOB MD Ot Z01.818 ENCOUNTER FOR OTHER PREPROCEDURAL EXAMIN 08/24/2016 EULALIO JACOB MD Ot Z11.2 ENCOUNTER FOR SCREENING FOR OTHER BACTER 08/28/2016 EULALIO JACOB MD E Ot C61 MALIGNANT NEOPLASM OF PROSTATE 08/31/2016 EULALIO JACOB MD Ot C61 MALIGNANT NEOPLASM OF PROSTATE 09/08/2016 EULALIO JACOB MD E Ot C61 MALIGNANT NEOPLASM OF PROSTATE 09/09/2016 EULALIO JACOB MD E Ot C61 MALIGNANT NEOPLASM OF PROSTATE 09/10/2016 EULALIO JACOB MD E Ot C61 MALIGNANT NEOPLASM OF PROSTATE 10/05/2016 EULALIO JACOB MD Ot C61 MALIGNANT NEOPLASM OF PROSTATE 10/06/2016 EULALIO JACOB MD Ot C61 MALIGNANT NEOPLASM OF PROSTATE 11/25/2016 RAHUL MOSES MD R Ot R07.9 CHEST PAIN, UNSPECIFIED 11/30/2016 RAHUL MOSES MD R Ot C61 MALIGNANT NEOPLASM OF PROSTATE 11/30/2016 RAHUL MOSES MD R Ot M79.669 PAIN IN UNSPECIFIED LOWER LEG 11/30/2016 SEGLIE MD, RAHUL R Ot R07.9 CHEST PAIN, UNSPECIFIED 12/01/2016 AURELIA BARKER RAHUL R Ot C61 MALIGNANT NEOPLASM OF PROSTATE 12/01/2016 AURELIA BARKER RAHUL R Ot M79.669 PAIN IN UNSPECIFIED LOWER LEG 12/01/2016 AURELIA BARKER RAHUL R Ot R07.9 CHEST PAIN, UNSPECIFIED 12/11/2016 AURELIA BARKER RAHUL R Ot C61 MALIGNANT NEOPLASM OF PROSTATE 12/11/2016 AURELIA BARKER RAHUL R Ot M79.669 PAIN IN UNSPECIFIED LOWER LEG 12/11/2016 AURELIA BARKER RAHUL R Ot R07.9 CHEST PAIN, UNSPECIFIED 12/11/2016 AURELIA BARKER RAHUL R Ot R07.9 CHEST PAIN, UNSPECIFIED 01/07/2017 AURELIA BARKER RAHUL R Ot C61 MALIGNANT NEOPLASM OF PROSTATE 01/07/2017 AURELIA BARKER RAHUL R Ot R07.9 CHEST PAIN, UNSPECIFIED 02/24/2017 CECIL BARKER, EULALIO Bowens Ot C61 MALIGNANT NEOPLASM OF PROSTATE 03/12/2017 AURELIA BARKER RAHUL R Ot M05.729 RHEU ARTHRIT W RHEU FACTOR OF UNSP ELBOW 03/24/2017 SHARRI BARKER FACC, ALI FACP CCDS Ot I48.3 TYPICAL ATRIAL FLUTTER 03/24/2017 SHARRI BAUGHC, ALI FACP CCDS Ot R00.2 PALPITATIONS 03/24/2017 SHARRI BAUGHC, ALI FACP CCDS Ot R06.02 SHORTNESS OF BREATH 04/07/2017 SHARRI BARKER FACC, ALI FACP CCDS Ot I48.3 TYPICAL ATRIAL FLUTTER 04/07/2017 SHARRI BARKER FACC, ALI FACP CCDS Ot R00.2 PALPITATIONS 04/07/2017 SHARRI BARKER FACC, ALI FACP CCDS Ot R06.02 SHORTNESS OF BREATH 04/08/2017 THUAN MADSEN TAKE AWAY WORKER Ot E66.9 OBESITY, UNSPECIFIED 04/08/2017 THUAN MADSEN TAKE AWAY WORKER Ot I48.92 UNSPECIFIED ATRIAL FLUTTER 04/08/2017 THUAN MADSEN TAKE AWAY WORKER Ot J45.909 UNSPECIFIED ASTHMA, UNCOMPLICATED 04/08/2017 THUAN MADSEN TAKE AWAY WORKER Ot R06.02 SHORTNESS OF BREATH 04/08/2017 THUAN MADSEN TAKE AWAY WORKER Ot Z68.34 BODY MASS INDEX (BMI) 34.0-34.9, ADULT 04/08/2017 THUAN MADSEN TAKE AWAY WORKER Ot Z79.01 TAPER PRINTED CIRCUIT LAYOUT (CURRENT) USE OF ANTICOAGULANT 04/08/2017 THUAN MADSEN TAKE AWAY WORKER Ot Z79.899 OTHER TAPER PRINTED CIRCUIT LAYOUT (CURRENT) DRUG THERAPY 04/08/2017 THUAN MADSEN TAKE AWAY WORKER Ot Z80.42 FAMILY HISTORY OF MALIGNANT NEOPLASM OF 04/08/2017 THUAN MADSEN TAKE AWAY WORKER Ot Z85.46 PERSONAL HISTORY OF MALIGNANT NEOPLASM O 04/09/2017 CECIL BARKER, EULALIO Bowens Ot C61 MALIGNANT NEOPLASM OF PROSTATE 04/12/2017 SHARRI BARKER FACC, ALI FACP CCDS Ot I48.3 TYPICAL ATRIAL FLUTTER 04/12/2017 SHARRI BAUGHC, ALI FACP CCDS Ot R00.2 PALPITATIONS 04/12/2017 SHARRI BARKER FACC, ALI FACP CCDS Ot R06.02 SHORTNESS OF BREATH 05/15/2017 CECIL BARKER, EULALIO Bowens Ot C61 MALIGNANT NEOPLASM OF PROSTATE 05/18/2017 Ot 733.90 BONE CARTILAGE DIS NOS 05/18/2017 RAHUL MOSES MD R Ot M25.551 PAIN IN RIGHT HIP 05/18/2017 RAHUL MOSES MD R Ot Z87.81 PERSONAL HISTORY OF (HEALED) TRAUMATIC F 05/18/2017 BETZY BARKER, SG A Ot C61 MALIGNANT NEOPLASM OF PROSTATE 05/18/2017 RAHUL MOSES MD Ot C61 MALIGNANT NEOPLASM OF PROSTATE 05/18/2017 RAHUL MOSES MD R Ot R07.9 CHEST PAIN, UNSPECIFIED 05/18/2017 RAHUL MOSES MD R Ot R07.9 CHEST PAIN, UNSPECIFIED 05/18/2017 RAHUL MOSES MD R Ot M05.729 RHEU ARTHRIT W RHEU FACTOR OF UNSP ELBOW 05/18/2017 SHARRI BARKER FACC, ALI FACP CCDS Ot I48.3 TYPICAL ATRIAL FLUTTER 05/18/2017 SHARRI BARKER FACC, ALI FACP CCDS Ot R00.2 PALPITATIONS 05/18/2017 SHARRI BARKER FACC, ALI FACP CCDS Ot R06.02 SHORTNESS OF BREATH 05/18/2017 SHARRI BARKER [facility] Ot I48.3 TYPICAL ATRIAL FLUTTER 05/18/2017 SHARRI BARKER [facility] CCD[facility] Ot R00.2 PALPITATIONS 05/18/2017 SHARRI BARKER [facility] Ot R06.02 SHORTNESS OF BREATH 05/18/2017 CECIL BARKER, EULALIO E Ot C61 MALIGNANT NEOPLASM OF PROSTATE 05/22/2017 STONEY BARKER, SHAUNNA Castellanos Ot G47.10 HYPERSOMNIA, UNSPECIFIED 05/22/2017 STONEY BARKER, SHAUNNA Castellanos Ot R06.83 SNORING 09/08/2017 AURELIA BARKER, RAHUL R Ot M05.729 RHEU ARTHRIT W RHEU FACTOR OF UNSP ELBOW 02/15/2018 THUAN MADSEN L TAKE AWAY WORKER Ot E66.9 OBESITY, UNSPECIFIED 02/15/2018 TENA THUAN L TAKE AWAY WORKER Ot G47.33 OBSTRUCTIVE SLEEP APNEA (ADULT) (PEDIATR 02/15/2018 BRICE MADSENHER L TAKE AWAY WORKER Ot I07.1 RHEUMATIC TRICUSPID INSUFFICIENCY 02/15/2018 TENA THUAN L TAKE AWAY WORKER Ot I10 ESSENTIAL (PRIMARY) HYPERTENSION 02/15/2018 TENA THUAN L TAKE AWAY WORKER Ot I48.0 PAROXYSMAL ATRIAL FIBRILLATION 02/15/2018 TENA THUAN L TAKE AWAY WORKER Ot R06.09 OTHER FORMS OF DYSPNEA Procedures There is no data. Results Test Result Range [id number] - 06/23/16 11:25 Serum or plasma urea nitrogen measurement (mass/volume) 11 mg/dL 7-18 Serum or plasma creatinine measurement (mass/volume) 0.67 mg/dL 0.60-1.30 Serum or plasma urea nitrogen/creatinine mass ratio 16 NRG Serum or plasma creatinine measurement with calculation of estimated glomerular filtration rate > NRG Methicillin resistant Staphylococcus aureus (MRSA) screening culture - 09:24 Methicillin resistant Staphylococcus aureus (MRSA) screening culture NEG NRG Complete urinalysis with reflex to culture - 08/21/16 09:33 Urine color determination YELLOW NRG Urine clarity determination CLEAR NRG Urine pH measurement by test strip 6.5 5-9 Specific gravity of urine by test strip 1.020 1.016- 1.022 Urine protein assay by test strip, semi-quantitative NEGATIVE NEGATIVE Urine glucose detection by automated test strip NEGATIVE NEGATIVE Erythrocytes detection in urine sediment by light microscopy NEGATIVE NEGATIVE Urine ketones detection by automated test strip NEGATIVE NEGATIVE Urine nitrite detection by test strip NEGATIVE NEGATIVE Urine total bilirubin detection by test strip NEGATIVE NEGATIVE Urine urobilinogen measurement by automated test strip (mass/volume) NORMAL NORMAL Urine leukocyte esterase detection by dipstick NEGATIVE NEGATIVE Automated urine sediment erythrocyte count by microscopy (number/high power field) NONE NRG Automated urine sediment leukocyte count by microscopy (number/high power field ) NONE NRG Bacteria detection in urine sediment by light microscopy NEGATIVE NRG Squamous epithelial cells detection in urine sediment by light microscopy RARE NRG Crystals detection in urine sediment by light microscopy NONE NRG Casts detection in urine sediment by light microscopy NONE NRG Mucus detection in urine sediment by light microscopy NEGATIVE NRG Complete urinalysis with reflex to culture NO NRG [id number] - 11/24/16 16:12 Serum or plasma urea nitrogen measurement (mass/volume) 14 mg/dL 7-18 Serum or plasma creatinine measurement (mass/volume) 0.70 mg/dL 0.60-1.30 Serum or plasma urea nitrogen/creatinine mass ratio 20 NRG Serum or plasma creatinine measurement with calculation of estimated glomerular filtration rate > NRG Automated blood complete blood count (hemogram) panel - 04/08/17 07:40 Blood leukocytes automated count (number/volume) 7.2 10*3/uL 4.3-11.0 Blood erythrocytes automated count (number/volume) 4.90 10*6/uL 4.35-5.85 Venous blood hemoglobin measurement (mass/volume) 15.2 g/dL 13.3-17.7 Blood hematocrit (volume fraction) 45 % 40-54 Automated erythrocyte mean corpuscular volume 91 [foz_us] 80-99 Automated erythrocyte mean corpuscular hemoglobin (mass per erythrocyte) 31 pg 25-34 Automated erythrocyte mean corpuscular hemoglobin concentration measurement ( mass/volume) 34 g/dL 32-36 Automated erythrocyte distribution width ratio 12.8 % 10.0-14.5 Automated blood platelet count (count/volume) 191 10*3/uL 130-400 Automated blood platelet mean volume measurement 10.6 [foz_us] 7.4-10.4 PT panel in platelet poor plasma by coagulation assay - 04/08/17 07:40 Prothrombin time (PT) in platelet poor plasma by coagulation assay 13.6 s 12.2-14.7 INR in platelet poor plasma or blood by coagulation assay 1.0 0.8-1.4 Activated partial thromboplastin time (aPTT) in platelet poor plasma bycoagulation assay - 04/08/17 07:40 Activated partial thromboplastin time (aPTT) in platelet poor plasma bycoagulation assay 32 s 24-35 Comprehensive metabolic panel - 04/08/17 07:40 Serum or plasma sodium measurement (moles/volume) 141 mmol/L 135-145 Serum or plasma potassium measurement (moles/volume) 3.8 mmol/L 3.6-5.0 Serum or plasma chloride measurement (moles/volume) 108 mmol/L 98-107 Carbon dioxide 23 mmol/L 21-32 Serum or plasma anion gap determination (moles/volume) 10 mmol/L 5-14 Serum or plasma urea nitrogen measurement (mass/volume) 12 mg/dL 7-18 Serum or plasma creatinine measurement (mass/volume) 0.61 mg/dL 0.60-1.30 Serum or plasma urea nitrogen/creatinine mass ratio 20 NRG Serum or plasma creatinine measurement with calculation of estimated glomerular filtration rate > NRG Serum or plasma glucose measurement (mass/volume) 98 mg/dL 70-105 Serum or plasma calcium measurement (mass/volume) 8.7 mg/dL 8.5-10.1 Serum or plasma total bilirubin measurement (mass/volume) 0.8 mg/dL 0.1-1.0 Serum or plasma alkaline phosphatase measurement (enzymatic activity/volume) 51 U/L 40-136 Serum or plasma aspartate aminotransferase measurement (enzymatic activity/ volume) 27 U/L 5-34 Serum or plasma alanine aminotransferase measurement (enzymatic activity/volume ) 34 U/L 0-55 Serum or plasma protein measurement (mass/volume) 6.6 g/dL 6.4-8.2 Serum or plasma albumin measurement (mass/volume) 3.8 g/dL 3.2-4.5 Lipid 1996 panel - 04/08/17 07:40 Serum or plasma triglyceride measurement (mass/volume) 100 mg/dL <150 Serum or plasma cholesterol measurement (mass/volume) 161 mg/dL < 200 Serum or plasma cholesterol in HDL measurement (mass/volume) 41 mg/ dL 40-60 Cholesterol in LDL [mass/volume] in serum or plasma by direct assay 116 mg/dL 1-129 Serum or plasma cholesterol in VLDL measurement (mass/volume) 20 mg/ dL 5-40 Methicillin resistant Staphylococcus aureus (MRSA) screening culture - 07:40 Methicillin resistant Staphylococcus aureus (MRSA) screening culture NEG NRG Complete blood count (CBC) with automated white blood cell (WBC) differential - 05/02/18 10:35 Blood leukocytes automated count (number/volume) 23.2 10*3/uL 4.3-11.0 Blood erythrocytes automated count (number/volume) 4.39 10*6/uL 4.35-5.85 Venous blood hemoglobin measurement (mass/volume) 13.6 g/dL 13.3-17.7 Blood hematocrit (volume fraction) 40 % 40-54 Automated erythrocyte mean corpuscular volume 91 [foz_us] 80-99 Automated erythrocyte mean corpuscular hemoglobin (mass per erythrocyte) 31 pg 25-34 Automated erythrocyte mean corpuscular hemoglobin concentration measurement ( mass/volume) 34 g/dL 32-36 Automated erythrocyte distribution width ratio 12.9 % 10.0-14.5 Automated blood platelet count (count/volume) 162 10*3/uL 130-400 Automated blood platelet mean volume measurement 10.5 [foz_us] 7.4-10.4 Automated blood neutrophils/100 leukocytes 87 % 42-75 Automated blood lymphocytes/100 leukocytes 3 % 12-44 Blood monocytes/100 leukocytes 10 % 0-12 Automated blood eosinophils/100 leukocytes 0 % 0-10 Automated blood basophils/100 leukocytes 0 % 0-10 Blood neutrophils automated count (number/volume) 20.2 10*3 1.8-7.8 Blood lymphocytes automated count (number/volume) 0.8 10*3 1.0-4.0 Blood monocytes automated count (number/volume) 2.3 10*3 0.0-1.0 Automated eosinophil count 0.0 10*3/uL 0.0-0.3 Automated blood basophil count (count/volume) 0.0 10*3/uL 0.0-0.1 PT panel in platelet poor plasma by coagulation assay - 05/02/18 10:35 Prothrombin time (PT) in platelet poor plasma by coagulation assay 19.3 s 12.2-14.7 INR in platelet poor plasma or blood by coagulation assay 1.6 0.8-1.4 Activated partial thromboplastin time (aPTT) in platelet poor plasma bycoagulation assay - 05/02/18 10:35 Activated partial thromboplastin time (aPTT) in platelet poor plasma bycoagulation assay 42 s 24-35 Blood lactic acid measurement (moles/volume) - 05/02/18 10:35 Blood lactic acid measurement (moles/volume) 1.00 mmol/L 0.50-2.00 Comprehensive metabolic panel - 05/02/18 10:35 Serum or plasma sodium measurement (moles/volume) 137 mmol/L 135-145 Serum or plasma potassium measurement (moles/volume) 3.6 mmol/L 3.6-5.0 Serum or plasma chloride measurement (moles/volume) 104 mmol/L 98-107 Carbon dioxide 26 mmol/L 21-32 Serum or plasma anion gap determination (moles/volume) 7 mmol/L 5-14 Serum or plasma urea nitrogen measurement (mass/volume) 11 mg/dL 7-18 Serum or plasma creatinine measurement (mass/volume) 0.68 mg/dL 0.60-1.30 Serum or plasma urea nitrogen/creatinine mass ratio 16 NRG Serum or plasma creatinine measurement with calculation of estimated glomerular filtration rate > NRG Serum or plasma glucose measurement (mass/volume) 108 mg/dL 70-105 Serum or plasma calcium measurement (mass/volume) 8.9 mg/dL 8.5-10.1 Serum or plasma total bilirubin measurement (mass/volume) 1.7 mg/dL 0.1-1.0 Serum or plasma alkaline phosphatase measurement (enzymatic activity/volume) 52 U/L 40-136 Serum or plasma aspartate aminotransferase measurement (enzymatic activity/ volume) 26 U/L 5-34 Serum or plasma alanine aminotransferase measurement (enzymatic activity/volume ) 28 U/L 0-55 Serum or plasma protein measurement (mass/volume) 6.5 g/dL 6.4-8.2 Serum or plasma albumin measurement (mass/volume) 3.8 g/dL 3.2-4.5 CALCIUM CORRECTED 9.1 mg/dL 8.5-10.1 Blood manual differential performed detection - 05/02/18 10:35 Blood monocytes/100 leukocytes 2 % NRG Manual blood segmented neutrophils/100 leukocytes 95 % NRG Blood band neutrophils/100 leukocytes 0 % NRG Manual blood lymphocytes/100 leukocytes 3 % NRG Manual eosinophils/100 leukocytes in nose 0 % NRG Manual blood basophils/100 leukocytes 0 % NRG Blood erythrocyte morphology finding identification NORMAL NRG Body fluid cell count - 05/02/18 12:10 Specimen source identification of body fluid SYNOVIAL NRG Evaluation of color of body fluid RED NRG Determination of appearance of body fluid MKD BLDY NRG Body fluid leukocytes count (number/volume) 69932 /uL NRG Body fluid erythrocytes count (number/volume) 61728 /uL NRG Manual body fluid polymorphonuclear cells/100 leukocytes 99 % NRG Manual body fluid mononuclear cells/100 leukocytes 0 % NRG Manual body fluid lymphocytes/100 leukocytes 1 % NRG Other cells/100 leukocytes in body fluid by manual count 0 % NRG Encounters ACCT No. Visit Date/Time Discharge Status Pt. Type Provider Facility Loc./Unit Complaint [id number] 01/31/2018 08:10:00 01/31/2018 23:59:59 CLS Outpatient THUAN MADSEN [facility] CARD GRANADOS,PAF,HTN,POLLO [id number] 05/21/2017 19:34:00 05/22/2017 06:35:00 DIS Outpatient SHAUNNA LUA MD [facility] SLEEP SNORING,MORNING HEADACHE [id number] 05/16/2017 00:18:00 05/16/2017 23:59:59 CLS Preadmit EULALIO JACOB MD [facility] ONC [id number] 02/23/2017 13:46:00 05/15/2017 00:01:00 DIS Outpatient EULALIO JACOB MD [facility] ONC [id number] 04/08/2017 07:03:00 04/08/2017 14:30:00 DIS Outpatient THUAN MADSEN [facility] CATH ATRIAL FLUTTER, PALPITATIONS,SOB [id number] 03/23/2017 07:30:00 03/23/2017 23:59:59 CLS Outpatient JACOB HARRELL MD, FACC, FACP CCDS [facility] CARD I48.3 ATRIAL FLUTTER [id number] 03/15/2017 10:33:00 03/15/2017 23:59:59 CLS Outpatient JACOB HARRELL MD, FACC, FACP CCDS [facility] CARD I48.3 ATRIAL FLUTTER [id number] 02/22/2017 16:45:00 02/22/2017 23:59:59 CLS Outpatient RAHUL MOSES MD [facility] RAD M05.729 [id number] 11/26/2016 15:31:00 11/26/2016 23:59:59 CLS Outpatient RAHUL MOSES MD [facility] RAD IN SAM HAD SUDDEN CHEST AND LEG PAIN [id number] 11/24/2016 15:58:00 11/24/2016 23:59:59 CLS Outpatient RAHUL MOSES MD [facility] LAB PT HAD SUDDEN CHEST PAIN/ LEG PAIN [id number] 09/25/2016 09:40:00 10/05/2016 00:01:00 DIS Outpatient EULALIO JACOB MD [facility] ONC [id number] 08/28/2016 06:00:00 08/28/2016 12:15:00 DIS Outpatient EULALIO JACOB MD [facility] SDC PROSTATE CANCER [id number] 08/21/2016 08:42:00 08/21/2016 09:40:00 DIS Outpatient EULALIO JACOB MD [facility] PREOP PROSTATE CANER [id number] 06/23/2016 11:12:00 06/23/2016 23:59:59 CLS Outpatient SG BO MD [facility] CARD PROSTATE CA [id number] 12/12/2015 16:01:00 12/12/2015 16:20:00 DIS Emergency FILOMENA JOSE DO L [facility] ER STITCHES REMOVED [id number] 12/01/2015 15:31:00 12/01/2015 16:05:00 DIS Emergency IRWIN PATTON FITNESS/WELLNESS DIRECTOR [facility] ER LEFT LEG LAC [id number] 07/15/2015 11:22:00 07/15/2015 23:59:59 CLS Outpatient RAHUL MOSES MD [facility] RAD PAIN IN RT HIP POST FX IN 2004 [id number] 05/02/2018 10:54:00 Document Registration [id number] 03/04/2012 07:33:00 Document Registration [id number] 2011 15:39:00 Document Registration
[2018-05-02] MEDS ORDERED: VANCOMYCIN 1 GM/NS 250 ML IVPB IV NR ×2 (14:00)
[2018-05-02] MEDS ORDERED: fentaNYL INJECTION 100 MCG/2 ML AMP IV PRN (14:00)
[2018-05-02] MEDS ORDERED: CATHETER FLUSH 10 ML SYR IV PRN (14:00)
[2018-05-02] MEDS ORDERED: IBUPROFEN 800 MG (MOTRIN) TAB PO PRN (14:00)
--- NOTE | 2018-05-02 14:05 | Consultation ---
History of Present Illness History of Present Illness Patient Consulted On(keyanna/time) 05/02/18 14:00 Date Seen by Provider: May 02, 2018 Time Seen by Provider: 14:00 Reason for Visit: L knee cellulitis History of Present Illness 62 yr old WM with left knee cellulits that started in the last 24 hours. no histroy of trauma. associated with fevers up to 103 degrees. denies open wound or drainage. he is nonambulatory at this point due to pain and has a moderate effusion that I aspirated bloody fluid from. there was no purulence noted in the aspirate. he has no hardware in the knee. he has no history of gout or RA. Allergies and Home Medications Allergies Coded Allergies: No Known Drug Allergies (Unverified , 09/06/11) Home Medications Apixaban 5 Mg Tablet, 5 MG PO BID, (Reported) Beclomethasone Dipropionate 8.7 Gm Aer.w.adap, 1 PUFF IH BID, (Reported) Etanercept 50 Mg/1 Ml Pen.injctr, 50 MG SQ WEEKLY, (Reported) takes on Wednesday Metoprolol Tartrate 50 Mg Tablet, 50 MG PO BID, (Reported) Multivit-Min/FA/Lycopen/Lutein 1 Each Tablet, 1 EACH PO ONCE, (Reported) Sertraline Hcl 25 Mg Tablet, 25 MG PO DAILY, (Reported) Ubidecarenone Unknown Strength Capsule, 200 MG PO DAILY, (Reported) Patient Home Medication List Home Medication List Reviewed: Yes Past Cuncdms-Ivtmhb-Pdybhe Hx Patient Social History Alcohol Use: Denies Use Recreational Drug Use: No Smoking Status: Never a Smoker Recent Foreign Travel: No Contact w/Someone Who Travel: No Recent Infectious Disease Expo: No Recent Hopitalizations: No Immunizations Up To Date Tetanus Booster (TDap): More than 5yrs Date of Pneumonia Vaccine: Apr 28, 2014 Date of Influenza Vaccine: May 21, 2016 Seasonal Allergies Seasonal Allergies: Yes (SOMETIMES) Past Medical History Surgeries: Yes Adenoidectomy, Cardiac, Gallbladder, Orthopedic, Tonsillectomy, Vasectomy Respiratory: Yes Asthma Cardiac: Yes (ATRAIL FLUTTER--S/P CARDIOVERSION 03/2017) Atrial Fibrillation, Irregular Heartbeat Neurological: No Genitourinary: Yes (PROSTATE CANCER) Prostate Problems Gastrointestinal: Yes (RT INGUINAL HERNIA) Abdominal Hernia Musculoskeletal: Yes (JOINT PROBLEMS; ANKLYOSING SPONDYLITIS) Arthritis, Chronic Back Pain Endocrine: No Loss of Vision: Bilateral Hearing Impairment: Denies Cancer: Yes Prostate Did You Recieve Any Treatments: Yes Psychosocial: Yes Bipolar, Depression Integumentary: Yes ("STAPH" INFECTION PRESUMED) Blood Disorders: No Review of Systems-General Musculoskeletal: other (L knee: moderate effusion, painful palpation, warm to touch, decreased ROM, overlying cellulitis into anteromedial calf) Physical Exam-General Problems Physical Exam Vital Signs Vital Signs - First Documented 05/02/18 10:16 Temp 102.6 Pulse 90 Resp 22 B/P (MAP) 112/65 (81) Pulse Ox 97 O2 Delivery Room Air Capillary Refill : Less Than 3 Seconds General Appearance: no apparent distress Assessment/Plan Assessment/Plan Admission Diagnosis/Plan Diagnosis: L knee cellulitis PLAN: joint aspiration in ER: fluid sent for cultures (cell count was 16, 000 with 99 % PMN) IV abx follow clinically for improvement consider I&D if no improvement Clinical Quality Measures DVT/VTE Risk/Contraindication: Risk Factor Score Per Nursin RFS Level Per Nursing on Admit: 2=Moderate PATRICIA SANCHEZ DO May 02, 2018 14:05
[2018-05-02 14:15] VITALS: BP 108/57
[2018-05-02] MEDS ORDERED: FLU QUADRIvalent (5+ YOA) 2018-2019 (AFLURIA) 0.5 ML IM ONE (14:15)
--- NOTE | 2018-05-02 14:31 | History & Physical-Hospitalist ---
History of Present Illness HPI/Chief Complaint Pt is a 62yoCM with a PMH of ankylosing spondylitis, a-fib, HTN, and prostate cancer who presented to the ER with CC of knee pain. He states his symptoms started on 04/30 with swelling and then on 05/01 worsened with stabbing pain and inability to bear weight after mowing the lawn. He developed a fever last night as well of 103 F. He continued to have a fever this morning so presented to the [facility] Walk In and was seen. They advised him to seek care in the ER. Upon arrival to the ER he was found to have a temperature of 102.6 with a leukocytosis of 24k. CT of the lower extremity revealed significant edema but no joint effusion. Ortho was consulted from the ER and aspiration of the knee was performed. He is admitted for sepsis and IV antibiotics. Source: patient Date Seen 05/02/18 Time Seen by Provider: 14:32 Attending Physician Dora Ricardo MD PCP Nathen Lopez MD Referring Physician Date of Admission May 02, 2018 at 12:53 Home Medications & Allergies Home Medications Reviewed patient Home Medication Reconciliation performed by pharmacy medication reconciliations glass installer technician and/or nursing. Patients Allergies have been reviewed. Allergies Allergies Coded Allergies No Known Drug Allergies (Unverified09/06/11) Past Wpklwhl-Suysca-Eyhrpy Hx Past Med/Social Hx: Reviewed Nursing Past Med/Soc Hx Patient Social History Alcohol Use: Denies Use Recreational Drug Use: No Smoking Status: Never a Smoker Physical Abuse Screen: No Sexual Abuse: No Recent Foreign Travel: No Contact w/other who traveled: No Recent Hopitalizations: No Recent Infectious Disease Expo: No Immunizations Up To Date Tetanus Booster (TDap): More than 5yrs Date of Pneumonia Vaccine: Apr 28, 2014 Date of Influenza Vaccine: May 21, 2016 Seasonal Allergies Seasonal Allergies: Yes (SOMETIMES) Past Medical History Surgeries: Adenoidectomy, Cardiac, Gallbladder, Orthopedic, Tonsillectomy, Vasectomy Cardiac: Atrial Fibrillation, Hypertension, Irregular Heartbeat Genitourinary: Prostate Problems Gastrointestinal: Abdominal Hernia Musculoskeletal: Arthritis, Chronic Back Pain Loss of Vision: Bilateral Hearing Impairment: Denies Cancer: Prostate Did You Recieve Any Treatments: Yes Psychosocial: Bipolar, Depression History of Blood Disorders: No Family History Reviewed Nursing Family Hx Cancer, Diabetes Review of Systems Constitutional: diaphoresis, fever EENTM: no symptoms reported Respiratory: No cough, No dyspnea on exertion, No short of breath Cardiovascular: No chest pain, No palpitations Gastrointestinal: No abdominal pain, No constipation, No diarrhea, No nausea, No vomiting Genitourinary: no symptoms reported Musculoskeletal: see HPI, joint pain, joint swelling Skin: no symptoms reported Psychiatric/Neurological: No Symptoms Reported Physical Exam Physical Exam Vital Signs Vital Signs - First Documented 05/02/18 10:16 Temp 102.6 Pulse 90 Resp 22 B/P (MAP) 112/65 (81) Pulse Ox 97 O2 Delivery Room Air Capillary Refill : Less Than 3 Seconds Height, Weight, BMI Height: 5'8.00" Weight: 228lbs. 0.0oz. [id number]; 34.7 BMI Method:Stated General Appearance: No Apparent Distress, WD/WN HEENT: PERRL/EOMI, Moist Mucous Membranes Neck: Non Tender, Supple Respiratory: Lungs Clear, No Respiratory Distress Cardiovascular: Regular Rate, Rhythm, No Murmur Gastrointestinal: Normal Bowel Sounds, Non Tender, Soft Extremity: Swelling (left lower extremity, erythema within the demarcation ) Neurologic/Psychiatric: Alert, Oriented x3, Normal Mood/Affect Skin: Normal Color, Warm/Dry Results Results/Procedures Labs Laboratory Tests 05/02/18 10:35 Patient resulted labs reviewed. Imaging: Reviewed Imaging Report Assessment/Plan Admission Diagnosis Left lower extremity cellulitis Admission Status: Inpatient Order (span 2 midnights) Reason for Inpatient Admission: Needs IV abx, may need I&D, will likely need more than 2 midnights Diagnosis/Problems Diagnosis/Problems (1) Sepsis Status: Acute Assessment & Plan: From cellulitis Leukocytosis with fever Lactic normal, no hypotension Cultures obtained in the ER Continue Vanc Qualifiers: Sepsis type: sepsis due to unspecified organism Qualified Codes: A41.9 - Sepsis, unspecified organism (2) Cellulitis of left knee Status: Acute Assessment & Plan: Abx Ortho consulted, appreciate recs Aspirated in ER- fluid sent for culture (3) Atrial fibrillation Assessment & Plan: paroxysmal s/p cardioversion in past On Eliquis Qualifiers: Atrial fibrillation type: paroxysmal Qualified Codes: I48.0 - Paroxysmal atrial fibrillation (4) Essential (primary) hypertension Assessment & Plan: BP well controlled Hold home meds (5) Prophylactic measure Assessment & Plan: Eliquis diet Saline lock Clinical Quality Measures DVT/VTE Risk/Contraindication: Risk Factor Score Per Nursin RFS Level Per Nursing on Admit: 2=Moderate DORA RICARDO MD May 02, 2018 14:31
[2018-05-02] MEDS ORDERED: BECL10.62 INH (14:34)
[2018-05-02] MEDS ORDERED: UBID200C16 PO (14:34)
[2018-05-02] MEDS ORDERED: ETAN50PE INJ (14:34)
[2018-05-02] MEDS ORDERED: METO200T48 PO (14:34)
[2018-05-02] MEDS ORDERED: SERT50TA9 PO (14:34)
[2018-05-02] MEDS: CATHETER FLUSH 10 ML SYR IV SCH ×2 (15:25→20:17)
[2018-05-02 15:49] VITALS: BP 102/56
[2018-05-02] MEDS: ACETAMINOPHEN 500 MG TAB (TYLENOL) PO PRN (19:15)
[2018-05-02] MEDS: APIXABAN 5 MG (ELIQUIS) TABLET PO SCH (20:17)
[2018-05-02] MEDS ORDERED: BECLOMETHASONE DIPROPIONATE INH SCH (21:00)
[2018-05-02 21:15] VITALS: BP 129/64
[2018-05-03] VITALS: BP 108/54
[2018-05-03] MEDS ORDERED: VANCOMYCIN 1500 MG/NS 500 ML IVPB IV SCH ×4 (02:00→16:00)
[2018-05-03] MEDS ORDERED: VANCOMYCIN 1000 MG/VIAL ONE (03:32)
[2018-05-03] MEDS ORDERED: NS IV 500 ML 500 ML ONE (03:32)
[2018-05-03] MEDS ORDERED: VANCOMYCIN 500 MG/VIAL IV ONE (03:33)
[2018-05-03 04:00] VITALS: BP 128/67
[2018-05-03] MEDS: CATHETER FLUSH 10 ML SYR IV SCH ×3 (05:00→20:15)
[2018-05-03 06:56] LABS: BASOPHILS % (AUTO) 0 % (0-10); EOSINOPHILS # (AUTO) 0.1 10^3/uL (0.0-0.3); EOSINOPHILS % (AUTO) 0 % (0-10); HEMATOCRIT 41 % (40-54); HEMOGLOBIN 14.3 G/DL (13.3-17.7); LYMPHOCYTES # (AUTO) 0.5 X 10^3 (1.0-4.0); LYMPHOCYTES % (AUTO) 3 % (12-44); MEAN CORPUSCULAR HEMOGLOBIN 32 PG (25-34); MEAN CORPUSCULAR HGB CONC 35 G/DL (32-36); MEAN CORPUSCULAR VOLUME 91 FL (80-99); MEAN PLATELET VOLUME 10.8 FL (7.4-10.4); MONOCYTES # (AUTO) 1.3 X 10^3 (0.0-1.0); MONOCYTES % (AUTO) 6 % (0-12); NEUTROPHILS # (AUTO) 18.4 X 10^3 (1.8-7.8); NEUTROPHILS % (AUTO) 91 % (42-75); PLATELET COUNT 134 10^3/uL (130-400); RED BLOOD COUNT 4.51 10^6/uL (4.35-5.85); RED CELL DISTRIBUTION WIDTH 13.1 % (10.0-14.5); WHITE BLOOD COUNT 20.3 10^3/uL (4.3-11.0)
[2018-05-03 07:26] LABS: ALANINE AMINOTRANSFERASE 25 U/L (0-55); ALBUMIN 3.6 GM/DL (3.2-4.5); ALKALINE PHOSPHATASE 55 U/L (40-136); BILIRUBIN,TOTAL 1.3 MG/DL (0.1-1.0); BUN/CREATININE RATIO 19; CALCIUM 8.9 MG/DL (8.5-10.1); CARBON DIOXIDE 23 MMOL/L (21-32); CHLORIDE 109 MMOL/L (98-107); CREATININE SERUM 0.58 MG/DL (0.60-1.30); GFR ESTIMATED > 60; GLUCOSE 96 MG/DL (70-105); POTASSIUM 3.6 MMOL/L (3.6-5.0); SODIUM 141 MMOL/L (135-145); TOTAL PROTEIN 6.2 GM/DL (6.4-8.2)
[2018-05-03 08:00] VITALS: BP 110/66
[2018-05-03] MEDS: SERTRALINE 50 MG (ZOLOFT) TABLET PO SCH (09:01)
--- NOTE | 2018-05-03 09:22 | Progress Note-Hospitalist ---
Subjective HPI/CC On Admission Date Seen by Provider: May 03, 2018 Time Seen by Provider: 09:17 Pt is a 62yoCM with a PMH of ankylosing spondylitis, a-fib, HTN, and prostate cancer who presented to the ER with CC of knee pain. He states his symptoms started on 04/30 with swelling and then on 05/01 worsened with stabbing pain and inability to bear weight after mowing the lawn. He developed a fever last night as well of 103 F. He continued to have a fever this morning so presented to the [facility] and was seen. They advised him to seek care in the ER. Upon arrival to the ER he was found to have a temperature of 102.6 with a leukocytosis of 24k. CT of the lower extremity revealed significant edema but no joint effusion. Ortho was consulted from the ER and aspiration of the knee was performed. He is admitted for sepsis and IV antibiotics. Subjective/Events-last exam Pt reports having a rough night as he did not have his CPAP. He also complained the bed was uncomfortable and hurt his back. He states his knee pain is improving though but he still has swelling. Focused Exam Lactate Level 05/02/18 10:35: Lactic Acid Level 1.00 Objective Exam Vital Signs Vital Signs Date Time Temp Pulse Resp B/P (MAP) Pulse Ox O2 Delivery O2 Flow Rate FiO2 05/03/18 04:00 98.1 93 20 128/67 (87) 95 Room Air Capillary Refill : Less Than 3 Seconds General Appearance: No Apparent Distress, WD/WN Respiratory: Lungs Clear, No Respiratory Distress Cardiovascular: Regular Rate, Rhythm, No Murmur Gastrointestinal: Normal Bowel Sounds, Soft Extremity: Other (left knee with persistent erythema; improving in some parts and spreading distally, swelling persistent) Neurologic/Psychiatric: Alert, Oriented x3 Results/Procedures Lab Laboratory Tests 05/02/18 10:35 05/03/18 06:46 Patient resulted labs reviewed. Imaging: Reviewed Imaging Report Assessment/Plan Assessment and Plan Assess & Plan/Chief Complaint Left lower extremity cellulitis Diagnosis/Problems Diagnosis/Problems (1) Sepsis Status: Acute Assessment & Plan: From cellulitis Leukocytosis improving and afebrile overnight Lactic normal, no hypotension Continue Vanc Aspirate growing strep- will add Rocephin Blood culture pending Qualifiers: Sepsis type: sepsis due to unspecified organism Qualified Codes: A41.9 - Sepsis, unspecified organism (2) Cellulitis of left knee Status: Acute Assessment & Plan: Abx Ortho consulted, appreciate recs Cultures as above (3) Atrial fibrillation Assessment & Plan: paroxysmal s/p cardioversion in past On Eliquis Qualifiers: Atrial fibrillation type: paroxysmal Qualified Codes: I48.0 - Paroxysmal atrial fibrillation (4) Essential (primary) hypertension Assessment & Plan: BP well controlled Hold home meds (5) Prophylactic measure Assessment & Plan: Eliquis diet Saline lock Clinical Quality Measures DVT/VTE Risk/Contraindication: Risk Factor Score Per Nursin RFS Level Per Nursing on Admit: 2=Moderate DORA ST MD May 03, 2018 09:22
[2018-05-03] MEDS: APIXABAN 5 MG (ELIQUIS) TABLET PO SCH ×2 (09:41→20:15)
[2018-05-03] MEDS: RT-FLUTICASONE 110 MCG (FLOVENT) PER PUFF INH SCH ×2 (09:50→21:30)
[2018-05-03] MEDS: cefTRIAXone FOR IV USE 1,000 MG in NS (IVPB) 50 ML IV SCH (09:55)
[2018-05-03 12:00] VITALS: BP 115/62
[2018-05-03] MEDS ORDERED: TROUGH ORDER-PHARMACY XX NR (15:00)
[2018-05-03] MEDS ORDERED: ONDANSETRON 4 MG/2 ML (SDV) Z0FRAN ONE (15:56)
[2018-05-03] MEDS ORDERED: ONDANSETRON 4 MG/2 ML (SDV) Z0FRAN IVP PRN (16:00)
--- NOTE | 2018-05-03 16:33 | Progress Note (SOAP) ---
Subjective Date Seen by a Provider: May 03, 2018 Time Seen by a Provider: 16:31 Subjective/Events-last exam ODETTE. Pain and swelling much improved. he has been weight bearing and he can flex to 90 degrees wo pain. cultures are negative thus far. Focused Exam Lactate Level 05/02/18 10:35: Lactic Acid Level 1.00 Objective Exam Vital Signs Date Time Temp Pulse Resp B/P (MAP) Pulse Ox O2 Delivery O2 Flow Rate FiO2 05/03/18 12:00 98.7 76 21 115/62 (79) 95 Room Air 05/03/18 08:00 100.1 76 22 110/66 (81) 96 Room Air 05/03/18 04:00 98.1 93 20 128/67 (87) 95 Room Air 05/03/18 00:00 98.0 81 20 108/54 (72) 91 Room Air 05/02/18 21:15 99.1 78 16 129/64 (85) 95 Room Air 05/02/18 20:17 98.9 05/02/18 19:15 101.6 05/02/18 19:15 101.6 05/02/18 18:24 101.3 I & O 05/03/18 07:00 Intake Total 1760 ml Output Total 700 ml Balance 1060 ml Capillary Refill : Less Than 3 Seconds General Appearance: No Apparent Distress Extremity: Other (erythema over knee improving cw yesterday, painless ROM, warm to touch, effusion impriving, 2/4 DP, PT) Results Lab Laboratory Tests 05/03/18 06:46: White Blood Count 20.3H, Red Blood Count 4.51, Hemoglobin 14.3, Hematocrit 41, Mean Corpuscular Volume 91, Mean Corpuscular Hemoglobin 32, Mean Corpuscular Hemoglobin Concent 35, Red Cell Distribution Width 13.1, Platelet Count 134, Mean Platelet Volume 10.8H, Neutrophils (%) (Auto) 91H, Lymphocytes (%) (Auto) 3L, Monocytes (%) (Auto) 6, Eosinophils (%) (Auto) 0, Basophils (%) (Auto) 0, Neutrophils # (Auto) 18.4H, Lymphocytes # (Auto) 0.5L, Monocytes # (Auto) 1.3H, Eosinophils # (Auto) 0.1, Basophils # (Auto) 0.0, Sodium Level 141, Potassium Level 3.6, Chloride Level 109H, Carbon Dioxide Level 23, Anion Gap 9, Blood Urea Nitrogen 11, Creatinine 0.58L, Estimat Glomerular Filtration Rate > 60, BUN /Creatinine Ratio 19, Glucose Level 96, Calcium Level 8.9, Corrected Calcium 9.2 , Total Bilirubin 1.3H, Aspartate Amino Transf (AST/SGOT) 21, Alanine Aminotransferase (ALT/SGPT) 25, Alkaline Phosphatase 55, Total Protein 6.2L, Albumin 3.6 05/03/18 15:04: Vancomycin Level Trough 7.9L Microbiology 05/02/18 Blood Culture - Preliminary, Resulted No growth 05/02/18 Gram Stain - Final, Resulted 05/02/18 Anaerobic Culture, Resulted Pending 05/02/18 Body Fluid Culture - Preliminary, Resulted Strep Species, Beta Hemolytic 05/02/18 Fungal Culture 1 - Preliminary, Resulted Culture In Progress Assessment/Plan Assessment/Plan Assess & Plan/Chief Complaint Diagnosis: L knee cellulitis PLAN: joint aspiration in ER: fluid sent for cultures (cell count was 16, 000 with 99 % PMN): follow cultures continue IV abx follow clinically for improvement consider D/C home wednesday Clinical Quality Measures DVT/VTE Risk/Contraindication: Risk Factor Score Per Nursin RFS Level Per Nursing on Admit: 2=Moderate PATRICIA SANCHEZ DO May 03, 2018 16:33
[2018-05-03 16:55] VITALS: BP 118/58
[2018-05-03] MEDS: meTOprolol SUCCINATE 100 MG (TOPROL XL) TAB PO SCH (18:30)
[2018-05-03 20:20] VITALS: BP 120/56
[2018-05-03] MEDS: VANCOMYCIN 1500 MG/NS 500 ML IVPB IV SCH ×2 (23:16)
[2018-05-03] MEDS: ACETAMINOPHEN 500 MG TAB (TYLENOL) PO PRN (23:33)
[2018-05-04 00:31] VITALS: BP 111/57
[2018-05-04] MEDS: CATHETER FLUSH 10 ML SYR IV SCH ×3 (02:37→21:14)
[2018-05-04 04:05] VITALS: BP 115/62
--- NOTE | 2018-05-04 04:29 | Progress Note (SOAP) ---
Subjective Date Seen by a Provider: May 04, 2018 Time Seen by a Provider: 04:25 Subjective/Events-last exam Patient with left knee cellulitis, and hemarthrosis Culture results are now revealing Strep., sensitivities are pending Patient states that he feels much better, and the knee swelling and pain has improved. Review of Systems General: No Chills; Fatigue Musculoskeletal: leg pain Neurological: No: Weakness Focused Exam Lactate Level 05/02/18 10:35: Lactic Acid Level 1.00 Objective Exam Vital Signs Date Time Temp Pulse Resp B/P (MAP) Pulse Ox O2 Delivery O2 Flow Rate FiO2 05/04/18 00:31 100.4 92 18 111/57 (75) 94 Room Air 05/03/18 22:39 99.6 05/03/18 21:31 91 Room Air 05/03/18 20:20 100.2 94 18 120/56 (77) 94 Room Air 05/03/18 16:55 99.8 102 18 118/58 (78) 97 Room Air 05/03/18 12:00 98.7 76 21 115/62 (79) 95 Room Air 05/03/18 08:00 100.1 76 22 110/66 (81) 96 Room Air I & O 05/04/18 06:59 Intake Total 1930 ml Output Total 475 ml Balance 1455 ml Capillary Refill : Less Than 3 Seconds General Appearance: No Apparent Distress Extremity: Other (Moderate swelling and erythema of the left knee. Significant reduction in cellulitis, in comparison to previously outlined borders. ) Neurologic/Psychiatric: Alert, Oriented x3, No Motor/Sensory Deficits, Normal Mood/Affect Skin: Warm/Dry Results Lab Laboratory Tests 05/03/18 06:46: White Blood Count 20.3H, Red Blood Count 4.51, Hemoglobin 14.3, Hematocrit 41, Mean Corpuscular Volume 91, Mean Corpuscular Hemoglobin 32, Mean Corpuscular Hemoglobin Concent 35, Red Cell Distribution Width 13.1, Platelet Count 134, Mean Platelet Volume 10.8H, Neutrophils (%) (Auto) 91H, Lymphocytes (%) (Auto) 3L, Monocytes (%) (Auto) 6, Eosinophils (%) (Auto) 0, Basophils (%) (Auto) 0, Neutrophils # (Auto) 18.4H, Lymphocytes # (Auto) 0.5L, Monocytes # (Auto) 1.3H, Eosinophils # (Auto) 0.1, Basophils # (Auto) 0.0, Sodium Level 141, Potassium Level 3.6, Chloride Level 109H, Carbon Dioxide Level 23, Anion Gap 9, Blood Urea Nitrogen 11, Creatinine 0.58L, Estimat Glomerular Filtration Rate > 60, BUN /Creatinine Ratio 19, Glucose Level 96, Calcium Level 8.9, Corrected Calcium 9.2 , Total Bilirubin 1.3H, Aspartate Amino Transf (AST/SGOT) 21, Alanine Aminotransferase (ALT/SGPT) 25, Alkaline Phosphatase 55, Total Protein 6.2L, Albumin 3.6 05/03/18 15:04: Vancomycin Level Trough 7.9L Microbiology 05/02/18 Blood Culture - Preliminary, Resulted No growth 05/02/18 Gram Stain - Final, Resulted 05/02/18 Anaerobic Culture, Resulted Pending 05/02/18 Body Fluid Culture - Preliminary, Resulted Strep Species, Beta Hemolytic 05/02/18 Fungal Culture 1 - Preliminary, Resulted Culture In Progress Assessment/Plan Assessment/Plan Assess & Plan/Chief Complaint Left knee cellulitis Awaiting sensitivity results. Clinical Quality Measures DVT/VTE Risk/Contraindication: Risk Factor Score Per Nursin RFS Level Per Nursing on Admit: 2=Moderate PARISH POOL May 04, 2018 04:29
[2018-05-04 05:59] LABS: BASOPHILS % (AUTO) 0 % (0-10); EOSINOPHILS # (AUTO) 0.2 10^3/uL (0.0-0.3); EOSINOPHILS % (AUTO) 1 % (0-10); HEMATOCRIT 37 % (40-54); HEMOGLOBIN 12.3 G/DL (13.3-17.7); LYMPHOCYTES % (AUTO) 6 % (12-44); MEAN CORPUSCULAR HEMOGLOBIN 30 PG (25-34); MEAN CORPUSCULAR HGB CONC 33 G/DL (32-36); MEAN CORPUSCULAR VOLUME 91 FL (80-99); MEAN PLATELET VOLUME 10.9 FL (7.4-10.4); MONOCYTES # (AUTO) 1.6 X 10^3 (0.0-1.0); MONOCYTES % (AUTO) 10 % (0-12); NEUTROPHILS # (AUTO) 13.7 X 10^3 (1.8-7.8); NEUTROPHILS % (AUTO) 83 % (42-75); PLATELET COUNT 152 10^3/uL (130-400); RED BLOOD COUNT 4.07 10^6/uL (4.35-5.85); RED CELL DISTRIBUTION WIDTH 13.1 % (10.0-14.5); WHITE BLOOD COUNT 16.5 10^3/uL (4.3-11.0)
[2018-05-04 06:20] LABS: BUN/CREATININE RATIO 14; CALCIUM 8.3 MG/DL (8.5-10.1); CARBON DIOXIDE 23 MMOL/L (21-32); CHLORIDE 109 MMOL/L (98-107); CREATININE SERUM 0.58 MG/DL (0.60-1.30); GFR ESTIMATED > 60; GLUCOSE 110 MG/DL (70-105); POTASSIUM 3.2 MMOL/L (3.6-5.0); SODIUM 139 MMOL/L (135-145)
[2018-05-04 08:00] VITALS: BP 114/57
[2018-05-04] MEDS: RT-FLUTICASONE 110 MCG (FLOVENT) PER PUFF INH SCH ×2 (08:52→20:03)
[2018-05-04] MEDS: APIXABAN 5 MG (ELIQUIS) TABLET PO SCH ×2 (09:57→21:14)
[2018-05-04] MEDS: SERTRALINE 50 MG (ZOLOFT) TABLET PO SCH (09:57)
[2018-05-04] MEDS: meTOprolol SUCCINATE 100 MG (TOPROL XL) TAB PO SCH (09:58)
[2018-05-04] MEDS: cefTRIAXone FOR IV USE 1,000 MG in NS (IVPB) 50 ML IV SCH (09:59)
[2018-05-04] MEDS ORDERED: KCL 20 MEQ TAB (K-DUR) PO NR (10:00)
[2018-05-04] MEDS: VANCOMYCIN 1500 MG/NS 500 ML IVPB IV SCH ×2 (10:58)
--- NOTE | 2018-05-04 11:02 | Progress Note-Hospitalist ---
Subjective HPI/CC On Admission Date Seen by Provider: May 04, 2018 Time Seen by Provider: 10:57 Pt is a 62yoCM with a PMH of ankylosing spondylitis, a-fib, HTN, and prostate cancer who presented to the ER with CC of knee pain. He states his symptoms started on 04/30 with swelling and then on 05/01 worsened with stabbing pain and inability to bear weight after mowing the lawn. He developed a fever last night as well of 103 F. He continued to have a fever this morning so presented to the [facility] and was seen. They advised him to seek care in the ER. Upon arrival to the ER he was found to have a temperature of 102.6 with a leukocytosis of 24k. CT of the lower extremity revealed significant edema but no joint effusion. Ortho was consulted from the ER and aspiration of the knee was performed. He is admitted for sepsis and IV antibiotics. Subjective/Events-last exam Pt reports feeling better today. Would like to go for a walk but is requesting PT. Focused Exam Lactate Level 05/02/18 10:35: Lactic Acid Level 1.00 Objective Exam Vital Signs Vital Signs Date Time Temp Pulse Resp B/P (MAP) Pulse Ox O2 Delivery O2 Flow Rate FiO2 05/04/18 08:52 93 Room Air 05/04/18 04:05 98.6 83 18 115/62 (79) Capillary Refill : Less Than 3 Seconds General Appearance: No Apparent Distress, WD/WN Respiratory: Lungs Clear, No Respiratory Distress Cardiovascular: Regular Rate, Rhythm, No Murmur Gastrointestinal: Normal Bowel Sounds, Soft Neurologic/Psychiatric: Alert, Oriented x3 Results/Procedures Lab Laboratory Tests 05/04/18 05:22 05/04/18 05:25 Patient resulted labs reviewed. Imaging: Reviewed Imaging Report Assessment/Plan Assessment and Plan Assess & Plan/Chief Complaint Left lower extremity cellulitis Diagnosis/Problems Diagnosis/Problems (1) Sepsis Status: Acute Assessment & Plan: From cellulitis Leukocytosis improvingbut recurrent fever this AM Continue Vanc/Rocephin until sensitivities back Blood culture NGTD Qualifiers: Sepsis type: sepsis due to unspecified organism Qualified Codes: A41.9 - Sepsis, unspecified organism (2) Cellulitis of left knee Status: Acute Assessment & Plan: Abx Ortho consulted, appreciate recs Cultures as above (3) Atrial fibrillation Assessment & Plan: paroxysmal s/p cardioversion in past On Eliquis Resume metoprolol Qualifiers: Atrial fibrillation type: paroxysmal Qualified Codes: I48.0 - Paroxysmal atrial fibrillation (4) Essential (primary) hypertension Assessment & Plan: Continue Metoprolol (5) Prophylactic measure Assessment & Plan: [facility] HH diet Saline lock Clinical Quality Measures DVT/VTE Risk/Contraindication: Risk Factor Score Per Nursin RFS Level Per Nursing on Admit: 2=Moderate DORA ST MD May 04, 2018 11:02 am
--- NOTE | 2018-05-04 11:36 | Physical Therapy Evaluation ---
PT Evaluation-General Medical Diagnosis Admission Date May 02, 2018 at 12:53 Medical Diagnosis: left knee pain Onset Date: May 02, 2018 Therapy Diagnosis Therapy Diagnosis: impaired mobility, strength, ROM Height/Weight Height (Feet): 5 Height (Inches): 8.00 Weight (Pounds): 228 Weight (Ounces): 0.0 Precautions Precautions/Isolations: Fall Prevention, Standard Precautions Weight Bear Status Right Lower Extremity: Right Weight Bearing/Tolerated Left Lower Extremity: Left Weight Bearing/Tolerated Referral Physician: Sherley Ricardo MD Reason for Referral: Evaluation/Treatment Medical History Additional Medical History Past Medical History Surgeries: Adenoidectomy, Cardiac, Gallbladder, Orthopedic, Tonsillectomy, Vasectomy Cardiac: Atrial Fibrillation, Hypertension, Irregular Heartbeat Genitourinary: Prostate Problems Gastrointestinal: Abdominal Hernia Musculoskeletal: Arthritis, Chronic Back Pain Loss of Vision: Bilateral Hearing Impairment: Denies Cancer: Prostate Did You Recieve Any Treatments: Yes Psychosocial: Bipolar, Depression Current History went to ER with left knee cellulitis Reviewed History: Yes Social History Home: Single Level Current Living Status: Children Entry Into Home: Stairs Without Railing PT Steps Into Home: 4 son lives with him Prior/Core FIM Prior Level of Function Functional [place] Measure 0=Not Assessed/NA 4=Minimal Assistance 1=Total Assistance 5=Supervision or Setup 2=Maximal Assistance 6=Modified [place] 3=Moderate Assistance 7=Complete [place] Bed Mobility: 7 Transfers (B,C,W/C) (FIM): 7 Gait: 7 PT Evaluation-Current Subjective Patient in recliner pre tx, agrees to PT, states he has 1/10 pain at rest in left knee. Pt/Family Goals "to walk better" Objective Patient Orientation: Person, Place, Situation Attachments: IV ROM/Strength ROM Lower Extremities impaired left knee due to infection and swelling Strength Lower Extremities 5/5 gross right lower extremity, 5/5 dorsiflexion on left side, left knee not tested Integumentary/Posture Integumentary redness and swelling in left knee Neuromuscular (Tone, Coordination, Reflexes) NT Sensory Vision: Wears Glasses Hearing: Functional Sensation Right Lower Extremit: Intact Sensation Left Lower Extremity: Intact Transfers Functional [place] Measure 0=Not Assessed/NA 4=Minimal Assistance 1=Total Assistance 5=Supervision or Setup 2=Maximal Assistance 6=Modified [place] 3=Moderate Assistance 7=Complete [place] Transfers (B, C, W/C) (FIM): 4 Sit to/from Stand: 4 CGA, cues for hand placement and positioning Gait Mode of Locomotion: Walk Anticipated Mode of Locomotion: Walk Gait (FIM): 5 Distance: 200' Gait Level of Assist: 5 Gait Persons Needed: 1 Gait Assistive Device: FWW Comments/Gait Description At the beginning of ambulation patient was antalgic and could not bear much weight on left knee but after walking for a while he was able to bear more weight and ambulation was more brisk and steady Balance Sitting Static: Normal Sitting Dynamic: Normal Standing Static: Good Standing Dynamic: Good Treatment seated exercises x15 (AP, LAQ) Assessment/Needs Patient has impaired mobility, strength, ROM. Pain with bearing weight initially with ambulation. Rehab Potential: Fair PT Short Term Goals Short Term Goals Time Frame: May 11, 2018 Transfers (B,C,W/C) (FIM): 6 Gait (FIM): 6 Gait Distance Comment: 300' Gait Level of Assist: 6 Gait Assistive Device: FWW PT Plan Problem List Problem List: Activity Tolerance, Functional Strength, Safety, Balance, Gait, Transfer, ROM Treatment/Plan Treatment Plan: Continue Plan of Care Treatment Plan: Bed Mobility, Education, Functional Activity Isaiah, Functional Strength, Gait, Safety, Therapeutic Exercise, Transfers Treatment Duration: May 11, 2018 Frequency: 6 times per week Estimated Hrs Per Day: .25 hour per day (15-30') Patient and/or Family Agrees t: Yes Safety Risks/Education Patient Education: Gait Training, Transfer Techniques, Correct Positioning, Safety Issues Teaching Recipient: Patient Teaching Methods: Demonstration, Discussion Response to Teaching: Reinforcement Needed Discharge Recommendations Plan Patient will perform bed mobility and transfer training, balance and endurance training, functional strengthening, stair training, gait training, and education , to improve functional mobility and independence at home. Therapy D/C Recommendations: Home w/ Family Support Time/GCodes Time In: 1107 Time Out: 1124 Total Billed Treatment Time: 17 Total Billed Treatment 1 visit ASHER 17' SEAN WHITESIDE PT May 04, 2018 11:36
[2018-05-04] MEDS: ACETAMINOPHEN 500 MG TAB (TYLENOL) PO PRN (13:59)
[2018-05-04 16:00] VITALS: BP 110/59
[2018-05-04 17:03] VITALS: BP 110/59
[2018-05-04 23:40] VITALS: BP 130/62
[2018-05-05] MEDS: CATHETER FLUSH 10 ML SYR IV SCH (06:33)
--- NOTE | 2018-05-05 06:38 | Progress Note (SOAP) ---
Subjective Date Seen by a Provider: May 05, 2018 Time Seen by a Provider: 06:35 Subjective/Events-last exam ODETTE. Minimal pain. Has been OOB. Wants to go home. denies fevers/chills. Focused Exam Lactate Level 05/02/18 10:35: Lactic Acid Level 1.00 Objective Exam Vital Signs Date Time Temp Pulse Resp B/P (MAP) Pulse Ox O2 Delivery O2 Flow Rate FiO2 05/04/18 23:40 99.8 98 18 130/62 (84) 92 Room Air 05/04/18 20:03 93 Room Air 05/04/18 20:00 Room Air 05/04/18 18:12 99.2 05/04/18 17:03 100.8 92 20 110/59 (76) 96 Room Air 05/04/18 16:00 100.8 92 20 110/59 (76) 96 Room Air 05/04/18 14:47 99.8 05/04/18 14:46 99.8 05/04/18 13:55 100.9 05/04/18 08:52 93 Room Air 05/04/18 08:41 Room Air 05/04/18 08:00 98.8 86 20 114/57 (76) 96 Room Air I & O 05/05/18 07:00 Intake Total 1830 ml Output Total 200 ml Balance 1630 ml Capillary Refill : Less Than 3 Seconds General Appearance: No Apparent Distress Extremity: Other (R knee: overlying cellulitis, no effusion noted, no pain with ROM, 2/4 DP, PT, ) Results Lab Microbiology 05/02/18 Blood Culture - Preliminary, Resulted No growth 05/02/18 Gram Stain - Final, Resulted 05/02/18 Anaerobic Culture - Preliminary, Resulted No anaerobes isolated 05/02/18 Body Fluid Culture - Preliminary, Resulted Streptococcus dysgalactiae 05/02/18 Fungal Culture 1 - Preliminary, Resulted No growth Assessment/Plan Assessment/Plan Assess & Plan/Chief Complaint Diagnosis: L knee cellulitis PLAN: home today on PO abx f/u with dr lundberg in one week WBAT Clinical Quality Measures DVT/VTE Risk/Contraindication: Risk Factor Score Per Nursin RFS Level Per Nursing on Admit: 2=Moderate PATRICIA LUNDBERG DO May 05, 2018 06:38
[2018-05-05 07:09] LABS: BASOPHILS % (AUTO) 0 % (0-10); EOSINOPHILS # (AUTO) 0.3 10^3/uL (0.0-0.3); EOSINOPHILS % (AUTO) 2 % (0-10); HEMATOCRIT 36 % (40-54); HEMOGLOBIN 12.4 G/DL (13.3-17.7); LYMPHOCYTES # (AUTO) 0.9 X 10^3 (1.0-4.0); LYMPHOCYTES % (AUTO) 7 % (12-44); MEAN CORPUSCULAR HEMOGLOBIN 31 PG (25-34); MEAN CORPUSCULAR HGB CONC 34 G/DL (32-36); MEAN CORPUSCULAR VOLUME 91 FL (80-99); MEAN PLATELET VOLUME 10.5 FL (7.4-10.4); MONOCYTES # (AUTO) 1.2 X 10^3 (0.0-1.0); MONOCYTES % (AUTO) 10 % (0-12); NEUTROPHILS # (AUTO) 10.6 X 10^3 (1.8-7.8); NEUTROPHILS % (AUTO) 82 % (42-75); PLATELET COUNT 170 10^3/uL (130-400); RED CELL DISTRIBUTION WIDTH 12.7 % (10.0-14.5)
[2018-05-05 07:29] LABS: BUN/CREATININE RATIO 14; CALCIUM 8.6 MG/DL (8.5-10.1); CARBON DIOXIDE 23 MMOL/L (21-32); CHLORIDE 109 MMOL/L (98-107); CREATININE SERUM 0.56 MG/DL (0.60-1.30); GFR ESTIMATED > 60; GLUCOSE 102 MG/DL (70-105); POTASSIUM 3.6 MMOL/L (3.6-5.0); SODIUM 140 MMOL/L (135-145)
[2018-05-05] MEDS: SERTRALINE 50 MG (ZOLOFT) TABLET PO SCH (08:43)
[2018-05-05] MEDS: APIXABAN 5 MG (ELIQUIS) TABLET PO SCH (08:43)
[2018-05-05] MEDS: meTOprolol SUCCINATE 100 MG (TOPROL XL) TAB PO SCH (08:43)
[2018-05-05] MEDS: cefTRIAXone FOR IV USE 1,000 MG in NS (IVPB) 50 ML IV SCH (08:43)
[2018-05-05] MEDS: RT-FLUTICASONE 110 MCG (FLOVENT) PER PUFF INH SCH (08:54)
[2018-05-05 09:00] VITALS: BP 128/64
[2018-05-05] MEDS ORDERED: CEPH-507 PO (09:01)
--- NOTE | 2018-05-05 09:04 | Discharge Summary-Hospitalist ---
Diagnosis/Chief Complaint Date of Admission May 02, 2018 at 12:53 pm Date of Discharge Discharge Date: May 05, 2018 Admission Diagnosis Left lower extremity cellulitis Discharge Diagnosis (1) Sepsis Status: Acute Assessment & Plan: From cellulitis Leukocytosis improving but recurrent fever this AM On Rocephin until sensitivities back Blood culture NGTD (2) Cellulitis of left knee Status: Acute Assessment & Plan: Abx Ortho consulted, appreciate recs Cultures as above (3) Atrial fibrillation Assessment & Plan: paroxysmal s/p cardioversion in past On Eliquis Resume metoprolol (4) Essential (primary) hypertension Assessment & Plan: Continue Metoprolol (5) Prophylactic measure Assessment & Plan: Eliquis HH diet Saline lock Discharge Summary Procedures/Consulations Dr Duarte- Orthopedic Surgery Discharge Physical Exam Allergies: Coded Allergies: No Known Drug Allergies (Unverified , 09/06/11) Vitals & I&Os Vital Signs Date Time Temp Pulse Resp B/P (MAP) Pulse Ox O2 Delivery O2 Flow Rate FiO2 05/05/18 11:25 102 18 128/64 94 Room Air 05/05/18 09:00 98.6 General Appearance: No Apparent Distress, WD/WN Respiratory: Lungs Clear, No Respiratory Distress Cardiovascular: Regular Rate, Rhythm, No Murmur Extremity: Other (swelling and erythema of left knee improving) Neurologic/Psychiatric: Alert, Oriented x3 Hospital Course Pt was admitted with sepsis due to lower extremity cellulitis. Orthopedic surgery was consulted due to concerns for septic arthritis. He was treated with vanc and Rocephin and antibiotics were deescalated based on cultures results growing strep dysgalactiae. He is to follow up with Dr Duarte in 1 week and continue his antibiotics until that time. He was discharged home in stable condition and requesting discharge at time of DC. Labs (last 24 hrs) Laboratory Tests 05/05/18 06:57: White Blood Count 13.0H, Red Blood Count 4.00L, Hemoglobin 12.4L, Hematocrit 36L , Mean Corpuscular Volume 91, Mean Corpuscular Hemoglobin 31, Mean Corpuscular Hemoglobin Concent 34, Red Cell Distribution Width 12.7, Platelet Count 170, Mean Platelet Volume 10.5H, Neutrophils (%) (Auto) 82H, Lymphocytes (%) (Auto) 7L, Monocytes (%) (Auto) 10, Eosinophils (%) (Auto) 2, Basophils (%) (Auto) 0, Neutrophils # (Auto) 10.6H, Lymphocytes # (Auto) 0.9L, Monocytes # (Auto) 1.2H, Eosinophils # (Auto) 0.3, Basophils # (Auto) 0.0, Sodium Level 140, Potassium Level 3.6, Chloride Level 109H, Carbon Dioxide Level 23, Anion Gap 8, Blood Urea Nitrogen 8, Creatinine 0.56L, Estimat Glomerular Filtration Rate > 60, BUN/ Creatinine Ratio 14, Glucose Level 102, Calcium Level 8.6 Microbiology 05/02/18 Blood Culture - Preliminary, Resulted No growth 05/02/18 Gram Stain - Final, Resulted 05/02/18 Anaerobic Culture - Preliminary, Resulted No anaerobes isolated 05/02/18 Body Fluid Culture - Preliminary, Resulted Streptococcus dysgalactiae 05/02/18 Fungal Culture 1 - Preliminary, Resulted No growth Patient resulted labs reviewed. Pending Labs Laboratory Tests 05/05/18 06:57: White Blood Count 13.0, Red Blood Count 4.00, Hemoglobin 12.4, Hematocrit 36, Mean Corpuscular Volume 91, Mean Corpuscular Hemoglobin 31, Mean Corpuscular Hemoglobin Concent 34, Red Cell Distribution Width 12.7, Platelet Count 170, Mean Platelet Volume 10.5, Neutrophils (%) (Auto) 82, Lymphocytes (%) (Auto) 7, Monocytes (%) (Auto) 10, Eosinophils (%) (Auto) 2, Basophils (%) (Auto) 0, Neutrophils # (Auto) 10.6, Lymphocytes # (Auto) 0.9, Monocytes # (Auto) 1.2, Eosinophils # (Auto) 0.3, Basophils # (Auto) 0.0, Sodium Level 140, Potassium Level 3.6, Chloride Level 109, Carbon Dioxide Level 23, Anion Gap 8, Blood Urea Nitrogen 8, Creatinine 0.56, Estimat Glomerular Filtration Rate > 60, BUN/ Creatinine Ratio 14, Glucose Level 102, Calcium Level 8.6 Imaging: Reviewed Imaging Report Discussion & Recommendations Discharge Planning: >30 minutes discharge planning Discharge Home Medications: Active Scripts Active Keflex (Cephalexin) 500 Mg Capsule 500 Mg PO BID Reported Enbrel (Etanercept) 50 Mg/1 Ml Pen.injctr 50 Mg INJ [place] Metoprolol Succinate 200 Mg Tab.er.24h 200 Mg PO DAILY Sertraline HCl 50 Mg Tablet 25 Mg PO DAILY TAKES 1/2 (50MG) TABLET Qvar Redihaler (Beclomethasone Dipropionate) 10.6 Gm Hfa.aeroba 1 Puff INH BID Co Q-10 (Ubidecarenone) 200 Mg Capsule 200 Mg PO DAILY Centrum Silver Men Tablet (Multivit-Min/FA/Lycopen/Lutein) 1 Each Tablet 1 Tab PO DAILY Eliquis (Apixaban) 5 Mg Tablet 5 Mg PO BID Instructions to patient/family Please see electronic discharge instructions given to patient. Clinical Quality Measures DVT/VTE Risk/Contraindication: Risk Factor Score Per Nursin RFS Level Per Nursing on Admit: 2=Moderate Problem Qualifiers (1) Sepsis: Sepsis type: sepsis due to unspecified organism Qualified Codes: A41.9 - Sepsis, unspecified organism (2) Atrial fibrillation: Atrial fibrillation type: paroxysmal Qualified Codes: I48.0 - Paroxysmal atrial fibrillation DORA ST MD May 05, 2018 09:04
--- NOTE | 2018-05-05 09:04 | Discharge Inst-Simple/Standard ---
Discharge Inst-Standard Discharge Medications New, Converted or Re-Newed RX: Transmitted to Pharmacy Patient Instructions/Follow Up Plan of Care/Instructions/FU: Please continue to take your medications as written. Please finish your antibiotics even if you feel better. You should take a probiotic or eat probiotic yogurt while on the antibiotic to help prevent diarrhea. Please follow up with Dr Duarte in 1 week. Activity as Tolerated: Yes Discharge Diet: No Restrictions Return to The Hospital For: Fever, worsening pain, swelling, erythema, if you feel you are getting worse. DORA ST MD May 05, 2018 09:04
--- NOTE | 2018-05-05 09:39 | Physical Therapy Daily Note ---
PT Daily Note-Current Subjective pt sitting at EOB pre tx, agrees to PT, pain L knee 4/10 Appearance pt in recliner post tx, w/ phone, call light, tray, all needs met Mental Status Patient Orientation: Normal For Age Attachments: IV Transfers Functional [place] Measure 0=Not Assessed/NA 4=Minimal Assistance 1=Total Assistance 5=Supervision or Setup 2=Maximal Assistance 6=Modified [place] 3=Moderate Assistance 7=Complete IndependenceIRFPAI Quality Coding Scale 6 Independent with activity with or without an assistive device 5 Patient requires set up or clean up by helper. Patient completes activity by themselves 4 Supervision or touching assist (CGA). Sharon provide cues , steadying assist 3 The helper provides less than half the effort to complete the activity 2 The helper provides more than half the effort to complete the activity 1 Dependent. The helper does all the effort to complete an activity 7 Patient refused to complete or attempt activity 9 The patient did not perform the activity before the current illness or injury 88 Not attempted due to Medical conditions or safety concerns Transfers (B, C, W/C) (FIM): 5 Sit to/from Stand: 5 sit<->stand SBA Weight Bearing Right Lower Extremity: Right Weight Bearing/Tolerated Left Lower Extremity: Left Weight Bearing/Tolerated Gait Training Gait (FIM): 5 Distance: 350' Gait Level of Assist: 5 Gait Persons Needed: 1 Gait Assistive Device: FWW pt ambulates 350' w/ SBA, pt demonstrates flexed posture and decreased R knee extension and excessive R hip flexion, gait is slow at first, but speed increases gradually, stable w/ no LOB Exercises Seated Therapy Exercises: Ankle pumps, Long arc quads (L only, R knee too painful), Hip flexion Seated Reps: 15 Treatments gait training, functional strengthening Assessment Current Status: Fair Progress improved endurance and gait distance PT Short Term Goals Short Term Goals Time Frame: May 11, 2018 Transfers (B,C,W/C) (FIM): 6 Gait (FIM): 6 Gait Distance Comment: 300' Gait Level of Assist: 6 Gait Assistive Device: FWW PT Plan Problem List Problem List: Activity Tolerance, Functional Strength, Safety, Balance, Gait, Transfer, Bed Mobility, ROM Treatment/Plan Treatment Plan: Continue Plan of Care Treatment Plan: Bed Mobility, Education, Functional Activity Isaiah, Functional Strength, Gait, Safety, Therapeutic Exercise, Transfers Treatment Duration: May 11, 2018 Frequency: 6 times per week Estimated Hrs Per Day: .25 hour per day (15-30') Patient and/or Family Agrees t: Yes Safety Risks/Education Patient Education: Gait Training, Transfer Techniques, Correct Positioning, Safety Issues Teaching Recipient: Patient Teaching Methods: Demonstration, Discussion Response to Teaching: Reinforcement Needed Time/GCodes Time In: 914 Time Out: 929 Total Billed Treatment Time: 15 Total Billed Treatment 1 visit GT 10' EX 5' SEAN WHITESIDE PT May 05, 2018 09:39
[2018-05-05 11:25] VITALS: BP 128/64
[2018-05-13] MEDS ORDERED: SILV20CR14 TOP (11:10)
[2018-05-13] MEDS ORDERED: CEFT1PIG IV (11:10)
== END 2018-05-05 11:27 | disposition home or self-care (01) | DRG 872 ==
LOC: EDUNIT# 09:45 → ER 09:47 → 4TH 12:53
PROVIDERS: ADMIT Family Medicine; ATTEND Family Medicine
PROC: 0S9D3ZX Drainage of Left Knee Joint, Percutaneous Approach, Diagnostic (ICD-10-PCS; principal; 2018-05-02)
DX: A41.9 Sepsis, unspecified organism (principal); L03.116 Cellulitis of left lower limb; B95.5 Unspecified streptococcus as the cause of diseases classified elsewhere; I10 Essential (primary) hypertension; I48.0 Paroxysmal atrial fibrillation; M45.9 Ankylosing spondylitis of unspecified sites in spine; M19.91 Primary osteoarthritis, unspecified site; J45.909 Unspecified asthma, uncomplicated; Z23 Encounter for immunization; F31.9 Bipolar disorder, unspecified; Z79.899 Other long term (current) drug therapy; Z79.01 Long term (current) use of anticoagulants; Z85.46 Personal history of malignant neoplasm of prostate; Z92.3 Personal history of irradiation
CPT/HCPCS: 36415; 73562; 73700; 80048; 80053; 80202; 83605; 85007; 85025; 85027; 85610; 85730; 87040; 87070; 87075; 87077; 87101; 87184; 87205; 89051; 89060; 90686; 93005; 94640; 96365; 96375

== ENCOUNTER 2018-05-09 13:42 | Inpatient (IN) | payer BC ==
[~2018-05-09] VITALS: Ht 172.7 cm; Wt 101.2 kg
[~2018-05-09 13:42] MED LIST changes: +BECL10.62 INH; +CEPH-507 PO; +ETAN50PE INJ; +METO200T48 PO; +SERT50TA9 PO; +UBID200C16 PO
--- OUTSIDE RECORDS SUMMARY | 2018-05-09 13:46 | XMS REPORT | Clinical Summary ---
Author Author [facility] Organization [facility] Address Unknown Phone Unavailable Care Team Providers Care Integrated Marketing Intern Name Role Phone PCP Unavailable Source Comments Some departments are not documenting in the electronic medical record. If you do not see the information that you expected, contact Release of Information in the Health Information Management department at [phone] for further assistance in locating additional records.[facility] Allergies Active Allergy Reactions Severity Noted Date [...]
--- OUTSIDE RECORDS SUMMARY | 2018-05-09 13:48 | XMS REPORT | Continuity of Care Document ---
Author Author [facility] Organization [facility] Address Unknown Phone Unavailable Allergies Active Description Code Type Severity Reaction Onset Reported/Identified Relationship to Patient Clinical Status Yes No Known Drug Allergies [id number] Drug Allergy Unknown N/A 2011 Medications There [...] AURELIA BARKER, RAHUL R Ot Z87.81 12/01/2015 IRWIN PATTON APRN Ot 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 12/01/2015 IRWIN PATTON APRN Ot S81.012A LACERATION WITHOUT FOREIGN BODY, LEFT KN 12/01/2015 IRWIN PATTON APRN Ot W20.8XXA OTH CAUSE OF STRIKE BY THROWN, PROJECTED 12/01/2015 IRWIN PATTON APRN Ot Y92.[address] IN [facility] NON-[facility] (PRIVATE 12/01/2015 IRWIN PATTON APRN Ot Y99.8 OTHER EXTERNAL CAUSE STATUS 12/03/2015 IRWIN PATTON APRN Ot 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 12/03/2015 IRWIN PATTON APRN Ot S81.012A LACERATION WITHOUT FOREIGN BODY, LEFT KN 12/03/2015 IRWIN PATTON APRN Ot W20.8XXA OTH CAUSE OF STRIKE BY THROWN, PROJECTED 12/03/2015 IRWIN PATTON APRN Ot Y92.[address] IN [facility] NON-[facility] (PRIVATE 12/03/2015 IRWNI PATTON PATIENT CARE PROVIDER Ot Y99.8 OTHER EXTERNAL CAUSE STATUS 12/12/2015 [...] Ot C61 MALIGNANT NEOPLASM OF PROSTATE 09/08/2016 UELALIO JACOB MD E Ot C61 MALIGNANT NEOPLASM [...] RHEU FACTOR OF UNSP ELBOW 03/24/2017 SHARRI BAREKR FACC, ALI FACP CCDS Ot I48.3 TYPICAL [...] R06.02 SHORTNESS OF BREATH 04/08/2017 THUAN MADSEN [employer] Ot E66.9 OBESITY, UNSPECIFIED 04/08/2017 THUAN MADSEN [employer] Ot I48.92 UNSPECIFIED ATRIAL FLUTTER 04/08/2017 THUAN MADSEN [employer] Ot J45.909 UNSPECIFIED ASTHMA, UNCOMPLICATED 04/08/2017 THUAN MADSEN [employer] Ot R06.02 SHORTNESS OF BREATH 04/08/2017 THUAN MADSEN [employer] Ot Z68.34 BODY MASS INDEX (BMI) 34.0-34.9, ADULT 04/08/2017 THUAN MADSEN [employer] Ot 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 04/08/2017 THUAN MADSEN [employer] Ot Z79.899 OTHER 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 ENGINEERING TECHNICIAN (CURRENT) DRUG THERAPY 04/08/2017 THUAN MADSEN [employer] Ot Z80.42 FAMILY HISTORY OF MALIGNANT NEOPLASM OF 04/08/2017 THUAN MADSEN [employer] M[employer] Ot Z85.46 PERSONAL HISTORY OF MALIGNANT NEOPLASM [...] R06.02 SHORTNESS OF BREATH 05/18/2017 SHARRI BARKER [facility], ALI FACP CCDS Ot I48.3 TYPICAL ATRIAL FLUTTER 05/18/2017 SHARRI BARKER FAC, ALI FACP CCDS Ot R00.2 PALPITATIONS 05/18/2017 SHARRI BARKER [facility], ALI FACP CCDS Ot R06.02 SHORTNESS OF BREATH 05/18/2017 CECIL BARKER, EULALIO E Ot C61 MALIGNANT NEOPLASM OF PROSTATE 05/22/2017 STONEY BARKER, SHAUNNA Castellanos Ot G47.10 HYPERSOMNIA, UNSPECIFIED 05/22/2017 STONEY BARKER, SHAUNNA Castellanos Ot R06.83 SNORING 09/08/2017 AURELIA BARKER, RAHUL R Ot M05.729 RHEU ARTHRIT W RHEU FACTOR OF UNSP ELBOW 02/15/2018 THUAN MADSEN L [employer] Ot E66.9 OBESITY, UNSPECIFIED 02/15/2018 BRICE MADSENHER L [employer] M[employer]ER Ot G47.33 OBSTRUCTIVE SLEEP APNEA (ADULT) (PEDIATR 02/15/2018 THUAN MADSEN L [employer] Ot I07.1 RHEUMATIC TRICUSPID INSUFFICIENCY 02/15/2018 THUAN MADSEN L [employer] Ot I10 ESSENTIAL (PRIMARY) HYPERTENSION 02/15/2018 THUAN MADSEN L [employer] MIXER Ot I48.0 PAROXYSMAL ATRIAL FIBRILLATION 02/15/2018 THUAN MADSEN L [employer] M[employer]ER Ot R06.09 OTHER FORMS OF DYSPNEA 05/05/2018 AURELIA BARKER, RAHUL R Ot A41.9 SEPSIS, UNSPECIFIED ORGANISM 05/05/2018 AURELIA BARKER, RAHUL R Ot B95.5 UNSP STREPTOCOCCUS THE CAUSE OF DISEA 05/05/2018 AURELIA BARKER, RAHUL R Ot F31.9 BIPOLAR DISORDER, UNSPECIFIED 05/05/2018 AURELIA BARKER, RAHUL R Ot I10 ESSENTIAL (PRIMARY) HYPERTENSION 05/05/2018 AURELIA BARKER, RAHUL R Ot I48.0 PAROXYSMAL ATRIAL FIBRILLATION 05/05/2018 AURELIA BARKER, RAHUL R Ot J30.2 OTHER SEASONAL ALLERGIC RHINITIS 05/05/2018 AURELIA BARKER, RAHUL R Ot J45.909 UNSPECIFIED ASTHMA, UNCOMPLICATED 05/05/2018 AURELIA BARKER, RAHUL R Ot L03.116 CELLULITIS OF LEFT LOWER LIMB 05/05/2018 AURELIA BARKER, RAHUL R Ot M19.91 PRIMARY OSTEOARTHRITIS, UNSPECIFIED SITE 05/05/2018 RAHUL MOSES MD, Ot 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 05/05/2018 RAHUL MOSES MD, Ot Z23 ENCOUNTER FOR IMMUNIZATION 05/05/2018 RAHUL MOSES MD, Ot Z79.01 PRISON (CURRENT) USE OF ANTICOAGULANT 05/05/2018 RAHUL MOSES MD, Ot Z79.899 OTHER PRISON (CURRENT) DRUG THERAPY 05/05/2018 RAHUL MOSES MD, Ot Z85.46 PERSONAL HISTORY OF MALIGNANT NEOPLASM O 05/05/2018 RAHUL MOSES MD, Ot Z92.3 PERSONAL HISTORY OF IRRADIATION Procedures Code Description Performed By Performed On [id number] DRAINAGE OF LEFT KNEE JOINT, PERCUTANEOU 05/02/2018 Results Test Result Range [id number] - 06/23/16 11:25 Serum or plasma urea [...] urinalysis with reflex to culture NO NRG [id number] - 11/24/16 16:12 Serum or plasma urea [...] Blood erythrocyte morphology finding identification NORMAL NRG Bacterial blood culture - 05/02/18 10:35 Bacterial blood culture NG NRG Bacterial blood culture - 05/02/18 12:00 Bacterial blood culture NG NRG Body fluid cell count - 05/02/18 12:10 Specimen source identification of body fluid SYNOVIAL NRG Evaluation of color of body fluid RED NRG Determination of appearance of body fluid MKD BLDY NRG Body fluid leukocytes count (number/volume) 35280 /uL NRG Body fluid erythrocytes count (number/volume) 93903 /uL NRG Manual body fluid polymorphonuclear cells/100 leukocytes 99 % NRG Manual body fluid mononuclear cells/100 leukocytes 0 % NRG Manual body fluid lymphocytes/100 leukocytes 1 % NRG Other cells/100 leukocytes in body fluid by manual count 0 % NRG Bacteria identification in isolate by anaerobe culture - 05/02/18 12:10 Bacteria identification in isolate by anaerobe culture NOANA NRG * Body fluid crystals type by light microscopy - 05/02/18 12:10 * Body fluid crystals type by light microscopy NOT SEEN NRG Gram stain microscopy - 05/02/18 12:10 Gram stain microscopy Gram stain requested by Dr Duarte 05/02 NRG Bacterial body fluid culture - 05/02/18 12:10 QUANTITY OF GROWTH . NRG Bacterial body fluid culture SEE COMMEN NRG C FUNGUS SPUTUM FLUID TISSUE - 05/02/18 12:10 C FUNGUS SPUTUM FLUID TISSUE NG NRG Complete blood count (CBC) with automated white blood cell (WBC) differential - 05/03/18 06:46 Blood leukocytes automated count (number/volume) 20.3 10*3/uL 4.3-11.0 Blood erythrocytes automated count (number/volume) 4.51 10*6/uL 4.35-5.85 Venous blood hemoglobin measurement (mass/volume) 14.3 g/dL 13.3-17.7 Blood hematocrit (volume fraction) 41 % 40-54 Automated erythrocyte mean corpuscular volume 91 [foz_us] 80-99 Automated erythrocyte mean corpuscular hemoglobin (mass per erythrocyte) 32 pg 25-34 Automated erythrocyte mean corpuscular hemoglobin concentration measurement ( mass/volume) 35 g/dL 32-36 Automated erythrocyte distribution width ratio 13.1 % 10.0-14.5 Automated blood platelet count (count/volume) 134 10*3/uL 130-400 Automated blood platelet mean volume measurement 10.8 [foz_us] 7.4-10.4 Automated blood neutrophils/100 leukocytes 91 % 42-75 Automated blood lymphocytes/100 leukocytes 3 % 12-44 Blood monocytes/100 leukocytes 6 % 0-12 Automated blood eosinophils/100 leukocytes 0 % 0-10 Automated blood basophils/100 leukocytes 0 % 0-10 Blood neutrophils automated count (number/volume) 18.4 10*3 1.8-7.8 Blood lymphocytes automated count (number/volume) 0.5 10*3 1.0-4.0 Blood monocytes automated count (number/volume) 1.3 10*3 0.0-1.0 Automated eosinophil count 0.1 10*3/uL 0.0-0.3 Automated blood basophil count (count/volume) 0.0 10*3/uL 0.0-0.1 Comprehensive metabolic panel - 05/03/18 06:46 Serum or plasma sodium measurement (moles/volume) 141 mmol/L 135-145 Serum or plasma potassium measurement (moles/volume) 3.6 mmol/L 3.6-5.0 Serum or plasma chloride measurement (moles/volume) 109 mmol/L 98-107 Carbon dioxide 23 mmol/L 21-32 Serum or plasma anion gap determination (moles/volume) 9 mmol/L 5-14 Serum or plasma urea nitrogen measurement (mass/volume) 11 mg/dL 7-18 Serum or plasma creatinine measurement (mass/volume) 0.58 mg/dL 0.60-1.30 Serum or plasma urea nitrogen/creatinine mass ratio 19 NRG Serum or plasma creatinine measurement with calculation of estimated glomerular filtration rate > NRG Serum or plasma glucose measurement (mass/volume) 96 mg/dL 70-105 Serum or plasma calcium measurement (mass/volume) 8.9 mg/dL 8.5-10.1 Serum or plasma total bilirubin measurement (mass/volume) 1.3 mg/dL 0.1-1.0 Serum or plasma alkaline phosphatase measurement (enzymatic activity/volume) 55 U/L 40-136 Serum or plasma aspartate aminotransferase measurement (enzymatic activity/ volume) 21 U/L 5-34 Serum or plasma alanine aminotransferase measurement (enzymatic activity/volume ) 25 U/L 0-55 Serum or plasma protein measurement (mass/volume) 6.2 g/dL 6.4-8.2 Serum or plasma albumin measurement (mass/volume) 3.6 g/dL 3.2-4.5 CALCIUM CORRECTED 9.2 mg/dL 8.5-10.1 Vancomycin trough - 05/03/18 15:04 Vancomycin trough 7.9 ug/mL 10.0-20.0 Complete blood count (CBC) with automated white blood cell (WBC) differential - 05/04/18 05:22 Blood leukocytes automated count (number/volume) 16.5 10*3/uL 4.3-11.0 Blood erythrocytes automated count (number/volume) 4.07 10*6/uL 4.35-5.85 Venous blood hemoglobin measurement (mass/volume) 12.3 g/dL 13.3-17.7 Blood hematocrit (volume fraction) 37 % 40-54 Automated erythrocyte mean corpuscular volume 91 [foz_us] 80-99 Automated erythrocyte mean corpuscular hemoglobin (mass per erythrocyte) 30 pg 25-34 Automated erythrocyte mean corpuscular hemoglobin concentration measurement ( mass/volume) 33 g/dL 32-36 Automated erythrocyte distribution width ratio 13.1 % 10.0-14.5 Automated blood platelet count (count/volume) 152 10*3/uL 130-400 Automated blood platelet mean volume measurement 10.9 [foz_us] 7.4-10.4 Automated blood neutrophils/100 leukocytes 83 % 42-75 Automated blood lymphocytes/100 leukocytes 6 % 12-44 Blood monocytes/100 leukocytes 10 % 0-12 Automated blood eosinophils/100 leukocytes 1 % 0-10 Automated blood basophils/100 leukocytes 0 % 0-10 Blood neutrophils automated count (number/volume) 13.7 10*3 1.8-7.8 Blood lymphocytes automated count (number/volume) 1.0 10*3 1.0-4.0 Blood monocytes automated count (number/volume) 1.6 10*3 0.0-1.0 Automated eosinophil count 0.2 10*3/uL 0.0-0.3 Automated blood basophil count (count/volume) 0.0 10*3/uL 0.0-0.1 Whole blood basic metabolic panel - 05/04/18 05:25 Serum or plasma sodium measurement (moles/volume) 139 mmol/L 135-145 Serum or plasma potassium measurement (moles/volume) 3.2 mmol/L 3.6-5.0 Serum or plasma chloride measurement (moles/volume) 109 mmol/L 98-107 Carbon dioxide 23 mmol/L 21-32 Serum or plasma anion gap determination (moles/volume) 7 mmol/L 5-14 Serum or plasma urea nitrogen measurement (mass/volume) 8 mg/dL 7-18 Serum or plasma creatinine measurement (mass/volume) 0.58 mg/dL 0.60-1.30 Serum or plasma urea nitrogen/creatinine mass ratio 14 NRG Serum or plasma creatinine measurement with calculation of estimated glomerular filtration rate > NRG Serum or plasma glucose measurement (mass/volume) 110 mg/dL 70-105 Serum or plasma calcium measurement (mass/volume) 8.3 mg/dL 8.5-10.1 Complete blood count (CBC) with automated white blood cell (WBC) differential - 05/05/18 06:57 Blood leukocytes automated count (number/volume) 13.0 10*3/uL 4.3-11.0 Blood erythrocytes automated count (number/volume) 4.00 10*6/uL 4.35-5.85 Venous blood hemoglobin measurement (mass/volume) 12.4 g/dL 13.3-17.7 Blood hematocrit (volume fraction) 36 % 40-54 Automated erythrocyte mean corpuscular volume 91 [foz_us] 80-99 Automated erythrocyte mean corpuscular hemoglobin (mass per erythrocyte) 31 pg 25-34 Automated erythrocyte mean corpuscular hemoglobin concentration measurement ( mass/volume) 34 g/dL 32-36 Automated erythrocyte distribution width ratio 12.7 % 10.0-14.5 Automated blood platelet count (count/volume) 170 10*3/uL 130-400 Automated blood platelet mean volume measurement 10.5 [foz_us] 7.4-10.4 Automated blood neutrophils/100 leukocytes 82 % 42-75 Automated blood lymphocytes/100 leukocytes 7 % 12-44 Blood monocytes/100 leukocytes 10 % 0-12 Automated blood eosinophils/100 leukocytes 2 % 0-10 Automated blood basophils/100 leukocytes 0 % 0-10 Blood neutrophils automated count (number/volume) 10.6 10*3 1.8-7.8 Blood lymphocytes automated count (number/volume) 0.9 10*3 1.0-4.0 Blood monocytes automated count (number/volume) 1.2 10*3 0.0-1.0 Automated eosinophil count 0.3 10*3/uL 0.0-0.3 Automated blood basophil count (count/volume) 0.0 10*3/uL 0.0-0.1 Whole blood basic metabolic panel - 05/05/18 06:57 Serum or plasma sodium measurement (moles/volume) 140 mmol/L 135-145 Serum or plasma potassium measurement (moles/volume) 3.6 mmol/L 3.6-5.0 Serum or plasma chloride measurement (moles/volume) 109 mmol/L 98-107 Carbon dioxide 23 mmol/L 21-32 Serum or plasma anion gap determination (moles/volume) 8 mmol/L 5-14 Serum or plasma urea nitrogen measurement (mass/volume) 8 mg/dL 7-18 Serum or plasma creatinine measurement (mass/volume) 0.56 mg/dL 0.60-1.30 Serum or plasma urea nitrogen/creatinine mass ratio 14 NRG Serum or plasma creatinine measurement with calculation of estimated glomerular filtration rate > NRG Serum or plasma glucose measurement (mass/volume) 102 mg/dL 70-105 Serum or plasma calcium measurement (mass/volume) 8.6 mg/dL 8.5-10.1 Encounters ACCT No. Visit Date/Time Discharge Status Pt. Type Provider Facility Loc./Unit Complaint [id number] 05/02/2018 12:53:00 05/05/2018 11:27:00 DIS Inpatient AURELIA BARKER, RAHUL R [facility] 4TH CELLULITIS L KNEE;SEPSIS [id number] 01/31/2018 08:10:00 01/31/2018 23:59:59 CLS Outpatient THUAN MADSEN [facility] CARD GRANADOS,PAF,HTN,POLLO [id number] 05/21/2017 19:34:00 05/22/2017 06:35:00 DIS Outpatient STONEY BARKER, SHAUNNA Castellanos [facility] SLEEP SNORING,MORNING HEADACHE [id number] 05/16/2017 00:18:00 05/16/2017 23:59:59 CLS Preadmit EULALIO JACOB MD [facility] ONC [id number] 02/23/2017 13:46:00 05/15/2017 00:01:00 DIS Outpatient EULALIO JACOB MD [facility] ONC [id number] 04/08/2017 07:03:00 04/08/2017 14:30:00 DIS Outpatient THUAN MADSEN [facility] CATH ATRIAL FLUTTER, PALPITATIONS,SOB [id number] 03/23/2017 07:30:00 03/23/2017 23:59:59 CLS Outpatient JACOB HARRELL MD, FACC, FACP CCDS [facility] CARD I48.3 ATRIAL FLUTTER [id number] 03/15/2017 10:33:00 03/15/2017 23:59:59 CLS Outpatient JACOB HARRELL MD, FACC, FACP CCDS [facility] CARD I48.3 ATRIAL FLUTTER [id number] 02/22/2017 16:45:00 02/22/2017 23:59:59 CLS Outpatient RAHUL MOSES MD [facility] RAD M05.729 [id number] 11/26/2016 15:31:00 11/26/2016 23:59:59 CLS Outpatient RAHUL MOSES MD [facility] RAD IN SAM HAD SUDDEN CHEST AND LEG PAIN [id number] 11/24/2016 15:58:00 11/24/2016 23:59:59 CLS Outpatient RAHUL MOSES MD [facility] LAB PT HAD SUDDEN CHEST PAIN/ LEG PAIN [id number] 09/25/2016 09:40:00 10/05/2016 00:01:00 DIS Outpatient EULALIO JACOB MD [facility] ONC [id number] 08/28/2016 06:00:00 08/28/2016 12:15:00 DIS Outpatient EULALIO JACOB MD [facility] SDC PROSTATE CANCER [id number] 08/21/2016 08:42:00 08/21/2016 09:40:00 DIS Outpatient EULALIO JACOB MD [facility] PREOP PROSTATE CANER [id number] 06/23/2016 11:12:00 06/23/2016 23:59:59 CLS Outpatient SG BO MD [facility] CARD PROSTATE CA [id number] 12/12/2015 16:01:00 12/12/2015 16:20:00 DIS Emergency FILOMENA JOSE DO [facility] ER STITCHES REMOVED [id number] 12/01/2015 15:31:00 12/01/2015 16:05:00 DIS Emergency IRWIN PATTON APRN [facility] ER LEFT LEG LAC [id number] 07/15/2015 11:22:00 07/15/2015 23:59:59 CLS Outpatient RAHUL MOSES MD [facility] RAD PAIN IN RT HIP POST FX IN 2004 [id number] 03/04/2012 07:33:00 Document Registration [id number] 2011 15:39:00 Document Registration
--- NOTE | 2018-05-09 14:00 | ED Lower Extremity ---
General Chief Complaint: Skin/Wound Problems Stated Complaint: L KNEE SWELLING;BLISTERS Source: patient Exam Limitations: no limitations (IRWIN PATTON APRN) History of Present Illness Date Seen by Provider: May 09, 2018 Time Seen by Provider: 13:58 Initial Comments To ER per going private vehicle from home with reports of swelling redness to the left leg and blisters to the anterior left knee. He was admitted here for 4 days being discharged on 05/05/18 for cellulitis left lower extremity. Dr. Duarte from orthopedics today and aspiration of synovial fluid left knee which grew Strep species. This was sensitive to erythromycin vancomycin and clindamycin. He was discharged after 4 days of IV antibiotics to home on oral antibiotics. He was initially having fevers and is no longer having fevers but he has an increase in the redness. The swelling has improved significantly. He is immunocompromised on Enbrel for Ankylosing Spondylitis. Onset: just prior to arrival Severity: moderate Pain/Injury Location: left knee Modifying Factors: Worse With Movement (IRWIN PATTON APRN) Allergies and Home Medications Allergies Coded Allergies: No Known Drug Allergies (Unverified , 09/06/11) Home Medications Apixaban 5 Mg Tablet, 5 MG PO BID, (Reported) Beclomethasone Dipropionate 10.6 Gm Hfa.aeroba, 1 PUFF INH BID, (Reported) Cephalexin 500 Mg Capsule, 500 MG PO BID Prescribed by: DORA ST on 05/05/18 0901 Etanercept 50 Mg/1 Ml Pen.injctr, 50 MG INJ Bassett, (Reported) Metoprolol Succinate 200 Mg Tab.er.24h, 200 MG PO DAILY, (Reported) Multivit-Min/FA/Lycopen/Lutein 1 Each Tablet, 1 TAB PO DAILY, (Reported) Sertraline HCl 50 Mg Tablet, 25 MG PO DAILY, (Reported) TAKES 1/2 (50MG) TABLET Ubidecarenone 200 Mg Capsule, 200 MG PO DAILY, (Reported) Patient Home Medication List Home Medication List Reviewed: Yes (IRWIN PATTON APRN) Review of Systems Constitutional: see HPI; No chills EENTM: see HPI Respiratory: no symptoms reported Cardiovascular: no symptoms reported Genitourinary: no symptoms reported Musculoskeletal: see HPI Skin: no symptoms reported Psychiatric/Neurological: No Symptoms Reported (IRWIN PATTON APRN) Past Wnckznx-Ysqzne-Lakqyn Hx Patient Social History Alcohol Use: Denies Use Recreational Drug Use: No Smoking Status: Never a Smoker 2nd Hand Smoke Exposure: No Recent Hopitalizations: No (IRWIN PATTON APRN) Immunizations Up To Date Tetanus Booster (TDap): More than 5yrs Date of Pneumonia Vaccine: Apr 28, 2014 Date of Influenza Vaccine: May 21, 2016 (IRWIN PATTON APRN) Seasonal Allergies Seasonal Allergies: Yes (SOMETIMES) (IRWIN PATTON APRN) Past Medical History Surgeries: Yes Adenoidectomy, Cardiac, Gallbladder, Orthopedic, Tonsillectomy, Vasectomy Respiratory: Yes Asthma Cardiac: Yes (ATRAIL FLUTTER--S/P CARDIOVERSION 03/2017) Atrial Fibrillation, Hypertension, Irregular Heartbeat Neurological: No Genitourinary: Yes (PROSTATE CANCER) Prostate Problems Gastrointestinal: Yes (RT INGUINAL HERNIA) Abdominal Hernia Musculoskeletal: Yes (JOINT PROBLEMS; ANKLYOSING SPONDYLITIS) Arthritis, Chronic Back Pain Endocrine: No Loss of Vision: Bilateral Hearing Impairment: Denies Cancer: Yes Prostate Did You Recieve Any Treatments: Yes What Type of Treatment Did You: Radiation Psychosocial: Yes Bipolar, Depression Integumentary: Yes ("STAPH" INFECTION PRESUMED) Blood Disorders: No (IRWIN PATTON APRN) Family Medical History Cancer, Diabetes (IRWIN PATTON APRN) Physical Exam Vital Signs Vital Signs - First Documented 05/09/18 13:48 Temp 98.3 Pulse 77 Resp 20 B/P (MAP) 137/75 (95) Pulse Ox 97 O2 Delivery Room Air (ERICA VIVAR MD) Vital Signs Capillary Refill : (IRWIN PATTON APRN) Height, Weight, BMI Height: 5'8.00" Weight: 228lbs. 0.0oz. 103.035706gc; 34.7 BMI Method:Stated General Appearance: WD/WN, no apparent distress HEENT: PERRL/EOMI, normal ENT inspection Neck: non-tender, full range of motion Respiratory: no respiratory distress, no accessory muscle use (IRWIN PATTON APRN) Cardiovascular: regular rate, rhythm, no murmur Respiratory: lungs clear, normal breath sounds Gastrointestinal: non tender, soft Back: normal inspection, no CVA tenderness, no vertebral tenderness Legs: left leg pain, left leg soft tissue tenderness, left leg swelling, left leg other (redness extending from the toes of the left follow-up to the groin and greatest around the area of the left knee.) Knees: left knee pain, left knee soft tissue tenderness, left knee swelling, left knee other (blistered/macerated scan to the anterior portion of the knee with clear drainage. Moderate redness under wound that is increasingly red from surrounding areas.) Neurologic/Tendon: normal sensation, normal motor functions Neurologic/Psychiatric: alert, oriented x 3 Skin: warm/dry, other (erythema and wound to left leg as described above) ( ERICA VIVAR MD) Procedures/Interventions Suture Size: 4-0 (IRWIN PATTON APRN) Progress/Results/Core Measures Results/Orders Lab Results Laboratory Tests Test 05/09/18 14:37 Range/Units White Blood Count 10.0 4.3-11.0 10^3/uL Red Blood Count 4.21 L 4.35-5.85 10^6/uL Hemoglobin 13.0 L 13.3-17.7 G/DL Hematocrit 39 L 40-54 % Mean Corpuscular Volume 92 80-99 FL Mean Corpuscular Hemoglobin 31 25-34 PG Mean Corpuscular Hemoglobin Concent 34 32-36 G/DL Red Cell Distribution Width 12.4 10.0-14.5 % Platelet Count 266 130-400 10^3/uL Mean Platelet Volume 10.8 H 7.4-10.4 FL Neutrophils (%) (Auto) 73 42-75 % Lymphocytes (%) (Auto) 12 12-44 % Monocytes (%) (Auto) 11 0-12 % Eosinophils (%) (Auto) 4 0-10 % Basophils (%) (Auto) 1 0-10 % Neutrophils # (Auto) 7.3 1.8-7.8 X 10^3 Lymphocytes # (Auto) 1.2 1.0-4.0 X 10^3 Monocytes # (Auto) 1.1 H 0.0-1.0 X 10^3 Eosinophils # (Auto) 0.4 H 0.0-0.3 10^3/uL Basophils # (Auto) 0.1 0.0-0.1 10^3/uL Sodium Level 139 135-145 MMOL/L Potassium Level 4.1 3.6-5.0 MMOL/L Chloride Level 101 98-107 MMOL/L Carbon Dioxide Level 29 21-32 MMOL/L Anion Gap 9 5-14 MMOL/L Blood Urea Nitrogen 7 7-18 MG/DL Creatinine 0.64 0.60-1.30 MG/DL Estimat Glomerular Filtration Rate > 60 BUN/Creatinine Ratio 11 Glucose Level 100 70-105 MG/DL Lactic Acid Level 1.44 0.50-2.00 MMOL/L Calcium Level 9.3 8.5-10.1 MG/DL Corrected Calcium 9.6 8.5-10.1 MG/DL Total Bilirubin 0.5 0.1-1.0 MG/DL Aspartate Amino Transf (AST/SGOT) 22 5-34 U/L Alanine Aminotransferase (ALT/SGPT) 30 0-55 U/L Alkaline Phosphatase 59 40-136 U/L Total Protein 6.7 6.4-8.2 GM/DL Albumin 3.6 3.2-4.5 GM/DL (ERICA VIVAR MD) My Orders Orders - ERICA VIVAR MD Ceftriaxone For Iv Use (Rocephin For I (05/09/18 15:45) (ERICA VIVAR MD) Vital Signs/I&O 05/09/18 13:48 Temp 98.3 Pulse 77 Resp 20 B/P (MAP) 137/75 (95) Pulse Ox 97 O2 Delivery Room Air (ERICA VIVAR MD) Progress Progress Note : Progress Note Seen and evaluated. IV, labs, blood cultures and lactic acid ordered. Ultrasound left lower extremity for DVT evaluation. Monitor patient. 1525: Labs reviewed with ultrasound pending. I have discussed the case with Dr. CARIAS given the significant physical exam findings noted with respect to the left leg. I'm very concerned about expanding cellulitis despite normal white count. This is especially due to the blistering wound to the anterior portion of the knee. Blood cultures are pending. Rocephin 1 g IV. We will admit the patient, inpatient status and continue Rocephin and vancomycin pending blood cultures. Wound care consult will be ordered. We did have nursing dress wound to left knee. (ERICA VIVAR MD) Diagnostic Imaging Diagonstic Imaging: Ultrasound Plain Films/CT/US/NM/MRI: leg Comments Preliminary read ultrasound left lower extremity shows no DVT. (ERICA VIVAR MD) Departure Communication (Admissions) Time/Spoke to Admitting Phy: 15:25 (ERICA VIVAR MD) Impression Primary Impression: Cellulitis Qualified Codes: L03.116 - Cellulitis of left lower limb Disposition: ADMITTED INPATIENT Condition: Stable Admissions Decision to Admit Reason: Admit from ER (General) Decision to Admit/Date: May 09, 2018 Time/Decision to Admit Time: 15:25 (ERICA VIVAR MD) Departure-Patient Inst. Referrals: RAHUL MOSES MD (PCP/Family) Primary Care Physician IRWIN PATTON APRN May 09, 2018 14:00 ERICA VIVAR MD May 09, 2018 15:45
[2018-05-09 14:59] LABS: BASOPHILS # (AUTO) 0.1 10^3/uL (0.0-0.1); BASOPHILS % (AUTO) 1 % (0-10); EOSINOPHILS # (AUTO) 0.4 10^3/uL (0.0-0.3); EOSINOPHILS % (AUTO) 4 % (0-10); HEMATOCRIT 39 % (40-54); LYMPHOCYTES # (AUTO) 1.2 X 10^3 (1.0-4.0); LYMPHOCYTES % (AUTO) 12 % (12-44); MEAN CORPUSCULAR HEMOGLOBIN 31 PG (25-34); MEAN CORPUSCULAR HGB CONC 34 G/DL (32-36); MEAN CORPUSCULAR VOLUME 92 FL (80-99); MEAN PLATELET VOLUME 10.8 FL (7.4-10.4); MONOCYTES # (AUTO) 1.1 X 10^3 (0.0-1.0); MONOCYTES % (AUTO) 11 % (0-12); NEUTROPHILS # (AUTO) 7.3 X 10^3 (1.8-7.8); NEUTROPHILS % (AUTO) 73 % (42-75); PLATELET COUNT 266 10^3/uL (130-400); RED BLOOD COUNT 4.21 10^6/uL (4.35-5.85); RED CELL DISTRIBUTION WIDTH 12.4 % (10.0-14.5)
[2018-05-09 15:19] LABS: ALANINE AMINOTRANSFERASE 30 U/L (0-55); ALBUMIN 3.6 GM/DL (3.2-4.5); ALKALINE PHOSPHATASE 59 U/L (40-136); BILIRUBIN,TOTAL 0.5 MG/DL (0.1-1.0); BUN/CREATININE RATIO 11; CALCIUM 9.3 MG/DL (8.5-10.1); CARBON DIOXIDE 29 MMOL/L (21-32); CHLORIDE 101 MMOL/L (98-107); CREATININE SERUM 0.64 MG/DL (0.60-1.30); GFR ESTIMATED > 60; GLUCOSE 100 MG/DL (70-105); POTASSIUM 4.1 MMOL/L (3.6-5.0); SODIUM 139 MMOL/L (135-145); TOTAL PROTEIN 6.7 GM/DL (6.4-8.2)
[2018-05-09] MEDS ORDERED: cefTRIAXone FOR IV USE 1,000 MG in NS (IVPB) 50 ML IV ONE (15:45)
--- NOTE | 2018-05-09 16:06 | Diagnostic Imaging Report ---
PROCEDURE: US left lower extremity venous. TECHNIQUE: Multiple real-time grayscale images were obtained over the left lower extremity in various projections. Additional duplex Doppler and color Doppler images were also obtained. INDICATION: Left leg erythema and edema EXAMINATION: Grayscale and color Doppler evaluation of the deep veins of the left lower extremity were performed with waveform analysis. FINDINGS: Continuous venous flow is present. No intraluminal filling defect is identified. There is normal compressibility and response to augmentation. No abnormal perivascular fluid collection is identified. IMPRESSION: No ultrasound evidence of left lower extremity deep venous thrombosis. Dictated by: Dictated on workstation # [id number]
[2018-05-09 16:30] VITALS: BP 135/66
[2018-05-09 16:40] VITALS: BP 135/66
[2018-05-09] MEDS ORDERED: CATHETER FLUSH 10 ML SYR IV PRN ×2 (17:30)
[2018-05-09] MEDS ORDERED: VANCOMYCIN 1,750 MG/NS 500 ML IVPB IV NR ×2 (17:30)
--- OUTSIDE RECORDS SUMMARY | 2018-05-09 17:35 | XMS REPORT | Clinical Summary ---
Author Author [facility] Organization [facility] Address Unknown Phone Unavailable Care Team Providers Care Durability Engineer Name Role Phone PCP Unavailable Source Comments Some departments are not documenting in the electronic medical record. If you do not see the information that you expected, contact Release of Information in the Health Information Management department at [phone] for further assistance in locating additional records.[facility] Allergies Active Allergy Reactions Severity Noted [...]
--- OUTSIDE RECORDS SUMMARY | 2018-05-09 17:36 | XMS REPORT | Continuity of Care Document ---
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 12/03/2015 IRWIN PATTON APRN Ot S81.012A LACERATION WITHOUT FOREIGN BODY, LEFT KN 12/03/2015 IRWIN PATTON APRN Ot W20.8XXA OTH CAUSE OF STRIKE BY THROWN, PROJECTED 12/03/2015 IRWIN PATTON APRN Ot Y92.[address] IN [facility] NON-INSTITUT (PRIVATE 12/03/2015 IRWIN PATTON RN PSYCH Ot Y99.8 OTHER EXTERNAL CAUSE STATUS 12/12/2015 JOSE DO, FILOMENA L Ot S81.012D LACERATION WITHOUT FOREIGN BODY, LEFT KN 12/13/2015 JOSE DO, FILOMENA L Ot S81.012D LACERATION WITHOUT FOREIGN BODY, LEFT KN 06/29/2016 GS BO MD Ot C61 MALIGNANT NEOPLASM OF [...] Ot R07.9 CHEST PAIN, UNSPECIFIED 12/11/2016 AURELIA BRAKER RAHUL R Ot C61 MALIGNANT NEOPLASM OF [...] R06.02 SHORTNESS OF BREATH 04/08/2017 THUAN MADSEN ELEMENTARY CLASSROOM TEACHER Ot E66.9 OBESITY, UNSPECIFIED 04/08/2017 THUAN MADSEN ELEMENTARY CLASSROOM TEACHER Ot I48.92 UNSPECIFIED ATRIAL FLUTTER 04/08/2017 THUAN MADSEN ELEMENTARY CLASSROOM TEACHER Ot J45.909 UNSPECIFIED ASTHMA, UNCOMPLICATED 04/08/2017 THUAN MADSEN ELEMENTARY CLASSROOM TEACHER Ot R06.02 SHORTNESS OF BREATH 04/08/2017 THUAN MADSEN ELEMENTARY CLASSROOM TEACHER Ot Z68.34 BODY MASS INDEX (BMI) 34.0-34.9, ADULT 04/08/2017 THUAN MADSEN ELEMENTARY CLASSROOM TEACHER Ot Z79.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) USE OF ANTICOAGULANT 04/08/2017 THUAN MADSEN ELEMENTARY CLASSROOM TEACHER Ot Z79.899 OTHER ATTIC FANS MECHANIC (CURRENT) DRUG THERAPY 04/08/2017 THUAN MADSEN ELEMENTARY CLASSROOM TEACHER Ot Z80.42 FAMILY HISTORY OF MALIGNANT NEOPLASM OF 04/08/2017 THUAN MADSEN ELEMENTARY CLASSROOM TEACHER Ot Z85.46 PERSONAL HISTORY OF MALIGNANT NEOPLASM [...] R06.02 SHORTNESS OF BREATH 05/18/2017 SHARRI BARKER [facility], ALI FACP CCDS Ot I48.3 TYPICAL ATRIAL FLUTTER 05/18/2017 SHARRI BARKER FAC, ALI FACP CCDS Ot R00.2 PALPITATIONS 05/18/2017 SHARRI BARKER [facility], ALI FACP CCDS Ot R06.02 SHORTNESS OF BREATH 05/18/2017 CECIL BARKER, EULALIO E Ot C61 MALIGNANT NEOPLASM OF PROSTATE 05/22/2017 STONEY BARKER, SHAUNNA Castellanos Ot G47.10 HYPERSOMNIA, UNSPECIFIED 05/22/2017 STONEY BARKER, SHAUNNA Castellanos Ot R06.83 SNORING 09/08/2017 AURELIA BARKER, RAHUL R Ot M05.729 RHEU ARTHRIT W RHEU FACTOR OF UNSP ELBOW 02/15/2018 THUAN MADSEN L ELEMENTARY CLASSROOM TEACHER Ot E66.9 OBESITY, UNSPECIFIED 02/15/2018 BRICE MADSENHER L ELEMENTARY CLASSROOM TEACHER Ot G47.33 OBSTRUCTIVE SLEEP APNEA (ADULT) (PEDIATR 02/15/2018 THUAN MADSEN L ELEMENTARY CLASSROOM TEACHER Ot I07.1 RHEUMATIC TRICUSPID INSUFFICIENCY 02/15/2018 THUAN MADSEN L ELEMENTARY CLASSROOM TEACHER Ot I10 ESSENTIAL (PRIMARY) HYPERTENSION 02/15/2018 THUAN MADSEN L ELEMENTARY CLASSROOM TEACHER Ot I48.0 PAROXYSMAL ATRIAL FIBRILLATION 02/15/2018 THUAN MADSEN L ELEMENTARY CLASSROOM TEACHER Ot R06.09 OTHER FORMS OF DYSPNEA 05/05/2018 [...] IMMUNIZATION 05/05/2018 RAHUL MOSES MD, Ot Z79.01 CARE HOME (CURRENT) USE OF ANTICOAGULANT 05/05/2018 RAHUL MOSES MD, Ot Z79.899 OTHER CARE HOME (CURRENT) DRUG THERAPY 05/05/2018 RAHUL MOSES MD, Ot Z85.46 PERSONAL HISTORY OF MALIGNANT NEOPLASM O 05/05/2018 RAHUL MOSES MD, Ot Z92.3 PERSONAL HISTORY OF IRRADIATION Procedures Code Description Performed By Performed On [id number] DRAINAGE OF LEFT KNEE JOINT, PERCUTANEOU 05/02/2018 Results Test Result Range [id number] - 06/23/16 11:25 Serum or plasma urea [...] urinalysis with reflex to culture NO NRG [id number] - 11/24/16 16:12 Serum or plasma urea [...] BLDY NRG Body fluid leukocytes count (number/volume) 23558 /uL NRG Body fluid erythrocytes count (number/volume) 51877 /uL NRG Manual body fluid polymorphonuclear cells/100 [...] Status Pt. Type Provider Facility Loc./Unit Complaint [id number] 05/02/2018 12:53:00 05/05/2018 11:27:00 DIS Inpatient AURELIA BARKER, RAHUL R [facility] 4TH CELLULITIS L KNEE;SEPSIS [id number] 01/31/2018 08:10:00 01/31/2018 23:59:59 CLS Outpatient THUAN MADSEN [facility] CARD GRANADOS,PAF,HTN,POLLO [id number] 05/21/2017 19:34:00 05/22/2017 06:35:00 DIS Outpatient STONEY BARKER, SHAUNNA Castellanos [facility] SLEEP SNORING,MORNING HEADACHE [id number] 05/16/2017 00:18:00 05/16/2017 23:59:59 CLS Preadmit EULALIO JACOB MD [facility] ONC [id number] 02/23/2017 13:46:00 05/15/2017 00:01:00 DIS Outpatient EULALIO JACOB MD [facility] ONC [id number] 04/08/2017 07:03:00 04/08/2017 14:30:00 DIS Outpatient THUAN MADSEN [facility] CATH ATRIAL FLUTTER, PALPITATIONS,SOB [id number] 03/23/2017 07:30:00 03/23/2017 23:59:59 CLS Outpatient JACOB HARRELL MD, FACC, FACP CCDS [facility] CARD I48.3 ATRIAL FLUTTER [id number] 03/15/2017 10:33:00 03/15/2017 23:59:59 CLS Outpatient JACOB HARRELL MD, FACC, FACP CCDS [facility] CARD I48.3 ATRIAL FLUTTER [id number] 02/22/2017 16:45:00 02/22/2017 23:59:59 CLS Outpatient RAHUL MOSES MD [facility] RAD M05.729 [id number] 11/26/2016 15:31:00 11/26/2016 23:59:59 CLS Outpatient RAHUL MOSES MD [facility] RAD IN SAM HAD SUDDEN CHEST AND LEG PAIN [id number] 11/24/2016 15:58:00 11/24/2016 23:59:59 CLS Outpatient RAHUL MOSES MD [facility] LAB PT HAD SUDDEN CHEST PAIN/ LEG PAIN [id number] 09/25/2016 09:40:00 10/05/2016 00:01:00 DIS Outpatient EULALIO JACOB MD [facility] ONC [id number] 08/28/2016 06:00:00 08/28/2016 12:15:00 DIS Outpatient EULALIO JACOB MD [facility] SDC PROSTATE CANCER [id number] 08/21/2016 08:42:00 08/21/2016 09:40:00 DIS Outpatient EULALIO JACOB MD [facility] PREOP PROSTATE CANER [id number] 06/23/2016 11:12:00 06/23/2016 23:59:59 CLS Outpatient SG BO MD [facility] CARD PROSTATE CA [id number] 12/12/2015 16:01:00 12/12/2015 16:20:00 DIS Emergency FILOMENA JOSE DO [facility] ER STITCHES REMOVED [id number] 12/01/2015 15:31:00 12/01/2015 16:05:00 DIS Emergency IRWIN PATTON APRN [facility] ER LEFT LEG LAC [id number] 07/15/2015 11:22:00 07/15/2015 23:59:59 CLS Outpatient RAHUL MOSES MD [facility] RAD PAIN IN RT HIP POST FX IN 2004 [id number] 03/04/2012 07:33:00 Document Registration [id number] 2011 15:39:00 Document Registration
[2018-05-09] MEDS: NS IV 1000 ML 1,000 ML IV SCH (17:59)
--- NOTE | 2018-05-09 19:36 | Wound Care Assessment ---
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 Past Medical History: Admits Heart Disease, Admits Cancer, Treaments (Prostate , Radiation Rx.) Atrial fibrillation with cardioversion 1 year ago. Depression. Smoking Status: Never a Smoker Recreational Drug Use: No Alcohol Use: Denies Use Review of Systems Pulmonary: No Dyspnea Cardiovascular: No: Chest Pain Musculoskeletal: leg pain Exam Vital Signs Date Time Temp Pulse Resp B/P (MAP) Pulse Ox O2 Delivery O2 Flow Rate FiO2 05/09/18 17:42 Room Air 05/09/18 16:40 99.0 80 20 135/66 (89) 97 Capillary Refill : Less Than 3 SecondsLess Than 3 Seconds General Appearance: no apparent distress HEENT: normal ENT inspection Neck: normal inspection Cardiovascular: regular rate, rhythm Respiratory: lungs clear Gastrointestinal: soft Neurologic/Psychiatric: other (L anterior knee -- 5.0 x 8.0 x 0.1 cm, excoririated, partial thickness, inflamed.) Results Laboratory Tests 05/09/18 14:37: White Blood Count 10.0, Red Blood Count 4.21L, Hemoglobin 13.0L, Hematocrit 39L , Mean Corpuscular Volume 92, Mean Corpuscular Hemoglobin 31, Mean Corpuscular Hemoglobin Concent 34, Red Cell Distribution Width 12.4, Platelet Count 266, Mean Platelet Volume 10.8H, Neutrophils (%) (Auto) 73, Lymphocytes (%) (Auto) 12 , Monocytes (%) (Auto) 11, Eosinophils (%) (Auto) 4, Basophils (%) (Auto) 1, Neutrophils # (Auto) 7.3, Lymphocytes # (Auto) 1.2, Monocytes # (Auto) 1.1H, Eosinophils # (Auto) 0.4H, Basophils # (Auto) 0.1, Sodium Level 139, Potassium Level 4.1, Chloride Level 101, Carbon Dioxide Level 29, Anion Gap 9, Blood Urea Nitrogen 7, Creatinine 0.64, Estimat Glomerular Filtration Rate > 60, BUN/ Creatinine Ratio 11, Glucose Level 100, Lactic Acid Level 1.44, Calcium Level 9.3, Corrected Calcium 9.6, Total Bilirubin 0.5, Aspartate Amino Transf (AST/ SGOT) 22, Alanine Aminotransferase (ALT/SGPT) 30, Alkaline Phosphatase 59, Total Protein 6.7, Albumin 3.6 Assessment/Plan/Dx 1. partial thickness wound of l anterior knee in area of previous cellulitis. Plan: will treat like a 2nd degree burn with Silvadene. SHAUNNA YEAGER MD May 09, 2018 19:36
[2018-05-09 19:45] VITALS: BP 129/66
[2018-05-09] MEDS ORDERED: ACETAMINOPHEN 325 MG TABLET PO PRN (21:15)
[2018-05-09] MEDS ORDERED: IBUPROFEN 600 MG (MOTRIN) TAB PO PRN (21:15)
[2018-05-09] MEDS ORDERED: PATIENT MAY USE OWN MED,SINGLE MED PO SCH (21:30)
[2018-05-09] MEDS: SILVER SULFADIAZINE 400 GM CREAM TOP SCH (22:03)
[2018-05-10 00:16] VITALS: BP 129/66
[2018-05-10] MEDS ORDERED: PATIENT MAY USE OWN MEDS, ALL MC SCH (01:30)
[2018-05-10] MEDS: VANCOMYCIN 1250 MG/NS 250 ML IVPB IV SCH ×6 (01:48→18:00)
[2018-05-10 04:20] VITALS: BP 125/65
[2018-05-10 06:48] LABS: BASOPHILS % (AUTO) 1 % (0-10); EOSINOPHILS # (AUTO) 0.3 10^3/uL (0.0-0.3); EOSINOPHILS % (AUTO) 4 % (0-10); HEMATOCRIT 36 % (40-54); HEMOGLOBIN 11.7 G/DL (13.3-17.7); LYMPHOCYTES # (AUTO) 0.9 X 10^3 (1.0-4.0); LYMPHOCYTES % (AUTO) 10 % (12-44); MEAN CORPUSCULAR HEMOGLOBIN 30 PG (25-34); MEAN CORPUSCULAR HGB CONC 32 G/DL (32-36); MEAN CORPUSCULAR VOLUME 92 FL (80-99); MEAN PLATELET VOLUME 10.4 FL (7.4-10.4); MONOCYTES # (AUTO) 1.1 X 10^3 (0.0-1.0); MONOCYTES % (AUTO) 13 % (0-12); NEUTROPHILS # (AUTO) 6.3 X 10^3 (1.8-7.8); NEUTROPHILS % (AUTO) 73 % (42-75); PLATELET COUNT 272 10^3/uL (130-400); RED BLOOD COUNT 3.95 10^6/uL (4.35-5.85); RED CELL DISTRIBUTION WIDTH 12.5 % (10.0-14.5); WHITE BLOOD COUNT 8.7 10^3/uL (4.3-11.0)
[2018-05-10] MEDS: NS IV 1000 ML 1,000 ML IV SCH ×2 (06:55→14:02)
[2018-05-10 07:13] LABS: ALANINE AMINOTRANSFERASE 24 U/L (0-55); ALBUMIN 3.2 GM/DL (3.2-4.5); ALKALINE PHOSPHATASE 49 U/L (40-136); BILIRUBIN,TOTAL 0.5 MG/DL (0.1-1.0); BUN/CREATININE RATIO 13; CALCIUM 8.9 MG/DL (8.5-10.1); CARBON DIOXIDE 24 MMOL/L (21-32); CHLORIDE 107 MMOL/L (98-107); CREATININE SERUM 0.56 MG/DL (0.60-1.30); GFR ESTIMATED > 60; GLUCOSE 101 MG/DL (70-105); POTASSIUM 3.9 MMOL/L (3.6-5.0); SODIUM 140 MMOL/L (135-145); TOTAL PROTEIN 6.1 GM/DL (6.4-8.2)
[2018-05-10 08:00] VITALS: BP 156/74
[2018-05-10] MEDS: APIXABAN 5 MG (ELIQUIS) TABLET PO SCH ×2 (08:57→21:46)
[2018-05-10] MEDS: cefTRIAXone 1 GM/NS 50 ML IVPB IV SCH ×2 (08:57)
[2018-05-10] MEDS: SERTRALINE 50 MG (ZOLOFT) TABLET PO SCH (08:58)
[2018-05-10] MEDS: METOPROLOL SUCCINATE 200 MG PO SCH (08:58)
[2018-05-10] MEDS ORDERED: NON-FORMULARY MEDICATION 1 EA EA (Metoprolol Succinate 200 MG) PO SCH (09:00)
[2018-05-10] MEDS: SILVER SULFADIAZINE 400 GM CREAM TOP SCH ×2 (09:34→21:47)
--- NOTE | 2018-05-10 11:31 | History & Physical-Hospitalist ---
History of Present Illness HPI/Chief Complaint The patient is a 62-year-old white male who presented to the emergency room yesterday afternoon with recurrent cellulitis in his left lower extremity. He was here from 05/02 through 05/05 with sepsis, fever to as much as 103, and a white count of 23,000. He was seen in consultation by Dr. Duarte of the orthopedic service. He aspirated the knee. This was bloody and a ratio of about 3-1 red blood cells, white blood cells. Ultimately strep agalactiae was grown. He was placed on Keflex 500 mg twice a day. When he returned to the emergency room he reported that his leg had become more swollen and the erythema had expanded downward to the dorsal MP joints. In addition it had expanded upward over the medial left thigh. These were marked with an indelible marker. The knee had become quite swollen over the patella. There were open blisters over the patella as well. He reported that the leg was much less tender and swollen than it had been yesterday. When looking at the indelible border markers the redness had receded on the medial thigh to just above the knee. When asked about anticoagulation he reported that he had been on Eliquis for A. fib for some time. He had had no direct injury to the knee. There was no previous surgery to the knee. He stated that he had electrocardioversion about one year ago and had been in sinus rhythm since that time. Date Seen 05/10/18 Time Seen by a Provider: 11:20 Attending Physician David Carias MD PCP Nathen Lopez MD Referring Physician Date of Admission May 09, 2018 at 15:39 Home Medications & Allergies Home Medications Reviewed patient Home Medication Reconciliation performed by pharmacy medication reconciliations associate technician and/or nursing. Patients Allergies have been reviewed. Allergies Allergies Coded Allergies No Known Drug Allergies (Unverified05/09/18) Past Hbjyxxn-Rmznhx-Ubncgn Hx Past Med/Social Hx: Reviewed Nursing Past Med/Soc Hx Patient Social History Alcohol Use: Denies Use Recreational Drug Use: No Smoking Status: Never a Smoker 2nd Hand Smoke Exposure: No Physical Abuse Screen: No Sexual Abuse: No Recent Foreign Travel: No Contact w/other who traveled: No Recent Hopitalizations: No Recent Infectious Disease Expo: No Immunizations Up To Date Tetanus Booster (TDap): More than 5yrs Date of Pneumonia Vaccine: Apr 28, 2014 Date of Influenza Vaccine: May 02, 2018 Seasonal Allergies Seasonal Allergies: Yes (SOMETIMES) Past Medical History Surgeries: Adenoidectomy, Cardiac, Gallbladder, Orthopedic, Tonsillectomy, Vasectomy Cardiac: Atrial Fibrillation, Hypertension, Irregular Heartbeat Genitourinary: Prostate Problems Gastrointestinal: Abdominal Hernia Musculoskeletal: Arthritis, Chronic Back Pain Loss of Vision: Bilateral Hearing Impairment: Denies Cancer: Prostate Did You Recieve Any Treatments: Yes What Type of Treatment Did You: Radiation Psychosocial: Bipolar, Depression History of Blood Disorders: No Family History Cancer, Diabetes Review of Systems Constitutional: see HPI EENTM: no symptoms reported Respiratory: no symptoms reported Cardiovascular: no symptoms reported Gastrointestinal: no symptoms reported Genitourinary: no symptoms reported Musculoskeletal: joint swelling Skin: see HPI Psychiatric/Neurological: No Symptoms Reported Physical Exam Physical Exam Vital Signs Capillary Refill : Less Than 3 SecondsLess Than 3 Seconds Height, Weight, BMI Height: 5'8.00" Weight: 223lbs. 0.0oz. [id number]; 33.9 BMI Method:Stated General Appearance: No Apparent Distress, WD/WN Eyes: Bilateral Eye Normal Inspection HEENT: Normal ENT Inspection Neck: Normal Inspection Respiratory: Chest Non Tender, Lungs Clear, Normal Breath Sounds, No Accessory Muscle Use, No Respiratory Distress Cardiovascular: Regular Rate, Rhythm, No Edema, No Gallop, No JVD, No Murmur, Normal Peripheral Pulses Gastrointestinal: Normal Bowel Sounds Neurologic/Psychiatric: Alert, Oriented x3, No Motor/Sensory Deficits, Normal Mood/Affect Skin: Normal Color, Warm/Dry Lymphatic: No Adenopathy Comments Yesterday's margins had been marked with an indelible marker. This extended up the medial thigh to nearly the groin. This is all receded to a point just above the knee. The patella is quite angry in appearance with multiple burst vesicles. There is fluid in the prepatellar bursa which is presumed to be blood. There is a redness extending down the leg and over the dorsal aspect of the foot to the MP joints. The distal margin is marked at the dorsal MP joints. Results Results/Procedures Labs Patient resulted labs reviewed. Assessment/Plan Admission Diagnosis 1.recurrent major cellulitis left lower extremity. 2.history of atrial fibrillation, apparently in sinus rhythm following cardioversion approximately one year ago. Admission Status: Inpatient Order (span 2 midnights) Reason for Inpatient Admission: Recurrent major cellulitis over the left lower extremity Assessment and Plan Bed rest, IV antibiotics, orthopedic and wound care consult. Clinical Quality Measures DVT/VTE Risk/Contraindication: Risk Factor Score Per Nursin RFS Level Per Nursing on Admit: 4+=Very High DAVID CARIAS MD May 10, 2018 11:31
[2018-05-10 12:00] VITALS: BP 150/69
[2018-05-10 15:46] VITALS: BP 126/64
[2018-05-10] MEDS ORDERED: TROUGH ORDER-PHARMACY XX NR (17:00)
[2018-05-10 19:28] VITALS: BP 130/70
[2018-05-10] MEDS: BECLOMETHASONE DIPROPIONATE INH SCH ×2 (20:07→21:47)
[2018-05-11 00:02] VITALS: BP 136/68
[2018-05-11] MEDS: VANCOMYCIN 1250 MG/NS 250 ML IVPB IV SCH ×4 (01:39→10:41)
[2018-05-11 03:59] VITALS: BP 134/67
[2018-05-11] MEDS: NS IV 1000 ML 1,000 ML IV SCH (05:32)
[2018-05-11 08:00] VITALS: BP 129/60
[2018-05-11] MEDS: BECLOMETHASONE DIPROPIONATE INH SCH ×2 (08:02→19:54)
[2018-05-11] MEDS: METOPROLOL SUCCINATE 200 MG PO SCH (08:03)
[2018-05-11] MEDS: SERTRALINE 50 MG (ZOLOFT) TABLET PO SCH (08:03)
[2018-05-11] MEDS: SILVER SULFADIAZINE 400 GM CREAM TOP SCH ×2 (08:05→19:55)
[2018-05-11] MEDS: APIXABAN 5 MG (ELIQUIS) TABLET PO SCH ×2 (08:08→19:54)
[2018-05-11] MEDS: cefTRIAXone 1 GM/NS 50 ML IVPB IV SCH ×2 (08:10)
--- NOTE | 2018-05-11 09:39 | Progress Note-Hospitalist ---
NICOLÁS MORALES MED STUDENT 05/11/18 0939: Subjective HPI/CC On Admission Date Seen by Provider: May 11, 2018 Time Seen by Provider: 08:10 CC: recurrent septic arthritis L knee HPI: The patient is a 62-year-old white male who presented to the emergency room with recurrent cellulitis in his left lower extremity. He was here from through 05/05 with sepsis, fever to as much as 103, and a white count of 23, 000. He was seen in consultation by Dr. Duarte of the orthopedic service. He aspirated the knee. This was bloody and a ratio of about 3-1 red blood cells, white blood cells. Ultimately strep agalactiae was grown. He was placed on Keflex 500 mg twice a day. When he returned to the emergency room he reported that his leg had become more swollen and the erythema had expanded downward to the dorsal MP joints. In addition it had expanded upward over the medial left thigh. These were marked with an indelible marker. The knee had become quite swollen over the patella. There were open blisters over the patella as well. He reported that the leg was much less tender and swollen than it had been yesterday. When looking at the indelible border markers the redness had receded on the medial thigh to just above the knee. When asked about anticoagulation he reported that he had been on Eliquis for A. fib for some time. He had had no direct injury to the knee. There was no previous surgery to the knee. He stated that he had electrocardioversion about one year ago and had been in sinus rhythm since that time. Subjective/Events-last exam Patient is awake, alert, and appears well this morning states he had no acute events last night, is in no pain urinating and having BM frequently and without difficulty self reports that swelling is much improved since admission feels able to go home if possible Focused Exam Lactate Level 05/09/18 14:37: Lactic Acid Level 1.44 Objective Exam Vital Signs Vital Signs Date Time Temp Pulse Resp B/P (MAP) Pulse Ox O2 Delivery O2 Flow Rate FiO2 05/11/18 08:02 93 Room Air 05/11/18 08:00 98.5 72 16 129/60 (83) Capillary Refill : Less Than 3 SecondsLess Than 3 Seconds General Appearance: No Apparent Distress, WD/WN HEENT: Normal ENT Inspection Neck: Full Range of Motion, Normal Inspection, Non Tender, Supple Respiratory: Chest Non Tender, Lungs Clear, Normal Breath Sounds, No Accessory Muscle Use, No Respiratory Distress Cardiovascular: Regular Rate, Rhythm, No Edema, No Gallop, No JVD, No Murmur, Normal Peripheral Pulses Gastrointestinal: Normal Bowel Sounds, Non Tender, Soft Back: Normal Inspection, No CVA Tenderness, No Vertebral Tenderness Extremity: Normal Capillary Refill, Normal Inspection, Normal Range of Motion, Non Tender, Swelling (decreased since yesterday) Neurologic/Psychiatric: Alert, Oriented x3, No Motor/Sensory Deficits, Normal Mood/Affect Skin: Normal Color, Warm/Dry Lymphatic: No Adenopathy Results/Procedures Lab Patient resulted labs reviewed. Assessment/Plan Assessment and Plan Assess & Plan/Chief Complaint CC: recurrent swelling, erythema, pain in left lower extremity after hospital discharge 05/05 for same diagnosis Assessment: on IV ceftriaxone every 24 hours blood culture pending dopler lower extremity negative for DVT being followed by ortho and wound care Plan: follow recommendations of ortho and wound care continue to monitor Clinical Quality Measures DVT/VTE Risk/Contraindication: Risk Factor Score Per Nursin RFS Level Per Nursing on Admit: 4+=Very High ZAYRA GUZMAN DO 05/11/18 1144: Subjective HPI/CC On Admission Time Seen by Provider: 10:30 Subjective/Events-last exam Assessed the patient's left knee after dressing removed and although patient is much improved and appears to be responding to current treatment he cannot go home today and will need a few more days of IV abx Midline will be placed since he will need IV abx for at least 2 weeks Anticoagulation maintained long-term since he will be at risk for left DVT due to edema and decreased ambulation Review of Systems Musculoskeletal: leg pain Objective Exam General Appearance: No Apparent Distress, WD/WN, Chronically ill Respiratory: Chest Non Tender, Lungs Clear, Normal Breath Sounds, No Accessory Muscle Use, No Respiratory Distress Cardiovascular: No Edema, No Gallop, No JVD, No Murmur, Normal Peripheral Pulses, Irregularly Irregular Neurologic/Psychiatric: Alert, Oriented x3, No Motor/Sensory Deficits, Normal Mood/Affect Skin: Other Assessment/Plan Assessment and Plan Assess & Plan/Chief Complaint IV Rocephin Midline Anticoagulation for AF and DVT px for left acute leg issue Diagnosis/Problems Diagnosis/Problems (1) Cellulitis Status: Acute Qualifiers: Site of cellulitis: extremity Site of cellulitis of extremity: lower extremity Laterality: left Qualified Codes: L03.116 - Cellulitis of left lower limb (2) Essential (primary) hypertension Status: Chronic (3) Atrial fibrillation Status: Chronic Qualifiers: Atrial fibrillation type: chronic Qualified Codes: I48.2 - Chronic atrial fibrillation NICOLÁS MORALES STUDENT May 11, 2018 09:39 ZAYRA GUZMAN DO May 11, 2018 11:44
[2018-05-11 12:00] VITALS: BP 137/68
[2018-05-11 16:25] VITALS: BP 114/54
[2018-05-11 19:10] VITALS: BP 133/66
[2018-05-12] VITALS (8 sets, daily range): BP systolic 113–140; BP diastolic 59–79
[2018-05-12 06:31] LABS: BASOPHILS % (AUTO) 1 % (0-10); EOSINOPHILS # (AUTO) 0.2 10^3/uL (0.0-0.3); EOSINOPHILS % (AUTO) 2 % (0-10); HEMATOCRIT 38 % (40-54); HEMOGLOBIN 12.7 G/DL (13.3-17.7); LYMPHOCYTES % (AUTO) 12 % (12-44); MEAN CORPUSCULAR HEMOGLOBIN 30 PG (25-34); MEAN CORPUSCULAR HGB CONC 33 G/DL (32-36); MEAN CORPUSCULAR VOLUME 91 FL (80-99); MONOCYTES # (AUTO) 0.9 X 10^3 (0.0-1.0); MONOCYTES % (AUTO) 10 % (0-12); NEUTROPHILS # (AUTO) 6.7 X 10^3 (1.8-7.8); NEUTROPHILS % (AUTO) 75 % (42-75); PLATELET COUNT 301 10^3/uL (130-400); RED BLOOD COUNT 4.21 10^6/uL (4.35-5.85); RED CELL DISTRIBUTION WIDTH 12.5 % (10.0-14.5); WHITE BLOOD COUNT 8.8 10^3/uL (4.3-11.0)
[2018-05-12 06:54] LABS: ALANINE AMINOTRANSFERASE 22 U/L (0-55); ALBUMIN 3.3 GM/DL (3.2-4.5); ALKALINE PHOSPHATASE 51 U/L (40-136); BILIRUBIN,TOTAL 0.3 MG/DL (0.1-1.0); BUN/CREATININE RATIO 17; CALCIUM 8.8 MG/DL (8.5-10.1); CARBON DIOXIDE 24 MMOL/L (21-32); CHLORIDE 108 MMOL/L (98-107); CREATININE SERUM 0.58 MG/DL (0.60-1.30); GFR ESTIMATED > 60; GLUCOSE 96 MG/DL (70-105); POTASSIUM 3.8 MMOL/L (3.6-5.0); SODIUM 140 MMOL/L (135-145)
[2018-05-12] MEDS: BECLOMETHASONE DIPROPIONATE INH SCH ×2 (09:29→21:42)
[2018-05-12] MEDS: APIXABAN 5 MG (ELIQUIS) TABLET PO SCH ×2 (09:53→21:11)
[2018-05-12] MEDS: SERTRALINE 50 MG (ZOLOFT) TABLET PO SCH (09:54)
[2018-05-12] MEDS: METOPROLOL SUCCINATE 200 MG PO SCH (09:54)
[2018-05-12] MEDS: SILVER SULFADIAZINE 400 GM CREAM TOP SCH ×2 (09:55→21:11)
[2018-05-12] MEDS ORDERED: LACTULOSE SYRUP 10GM/15ML (ENULOSE) 30ML UDC PO PRN (10:00)
[2018-05-12] MEDS: cefTRIAXone 1 GM/NS 50 ML IVPB IV SCH ×2 (10:01)
[2018-05-12] MEDS: DOCUSATE SODIUM 100 MG (COLACE) CAP PO SCH ×2 (10:14→21:10)
[2018-05-12] MEDS: POLYETHYLENE GLYCOL 17 GM (MIRALAX) PACK PO SCH ×2 (10:14→21:10)
--- NOTE | 2018-05-12 10:34 | Progress Note-Hospitalist ---
NICOLÁS MORALES MED STUDENT 05/12/18 1034: Subjective HPI/CC On Admission Date Seen by Provider: May 12, 2018 Time Seen by Provider: 07:45 CC: recurrent septic arthritis L knee HPI: The patient is a 62-year-old white male who presented to the emergency room with recurrent cellulitis in his left lower extremity. He was here from through 05/05 with sepsis, fever to as much as 103, and a white count of 23, 000. He was seen in consultation by Dr. Duarte of the orthopedic service. He aspirated the knee. This was bloody and a ratio of about 3-1 red blood cells, white blood cells. Ultimately strep agalactiae was grown. He was placed on Keflex 500 mg twice a day. When he returned to the emergency room he reported that his leg had become more swollen and the erythema had expanded downward to the dorsal MP joints. In addition it had expanded upward over the medial left thigh. These were marked with an indelible marker. The knee had become quite swollen over the patella. There were open blisters over the patella as well. He reported that the leg was much less tender and swollen than it had been yesterday. When looking at the indelible border markers the redness had receded on the medial thigh to just above the knee. When asked about anticoagulation he reported that he had been on Eliquis for A. fib for some time. He had had no direct injury to the knee. There was no previous surgery to the knee. He stated that he had electrocardioversion about one year ago and had been in sinus rhythm since that time. Subjective/Events-last exam Patient reports he is feeling well, no overnight events, and in no pain states he is urinating frequently without difficulty he has not had BM in "a few days" but also states he hasn't eaten much for lack of appetite we discussed discharge tomorrow and he agreed to come back for antibiotics daily Dr. Lopez is PCP Focused Exam Lactate Level 05/09/18 14:37: Lactic Acid Level 1.44 Objective Exam Vital Signs Vital Signs Date Time Temp Pulse Resp B/P (MAP) Pulse Ox O2 Delivery O2 Flow Rate FiO2 05/12/18 09:30 97 Room Air 05/12/18 08:00 98.2 65 24 140/75 (96) Capillary Refill : Less Than 3 SecondsLess Than 3 Seconds General Appearance: No Apparent Distress, WD/WN HEENT: Normal ENT Inspection Neck: Full Range of Motion, Normal Inspection, Non Tender, Supple Respiratory: Chest Non Tender, Lungs Clear, Normal Breath Sounds, No Accessory Muscle Use, No Respiratory Distress Cardiovascular: Regular Rate, Rhythm, No Gallop, No JVD, No Murmur, Normal Peripheral Pulses Gastrointestinal: Non Tender, Soft Back: Normal Inspection, No CVA Tenderness, No Vertebral Tenderness Extremity: Normal Range of Motion, Non Tender, Inflammation (receeding compared to yesterday), Swelling Neurologic/Psychiatric: Alert, Oriented x3, No Motor/Sensory Deficits, Normal Mood/Affect Skin: Normal Color, Warm/Dry Lymphatic: No Adenopathy Results/Procedures Lab Laboratory Tests 05/12/18 06:00 Patient resulted labs reviewed. Assessment/Plan Assessment and Plan Assess & Plan/Chief Complaint CC: recurrent swelling, erythema, pain in left lower extremity after hospital discharge 05/05 for same diagnosis Assessment: inflammation seems to be receding in no pain or distress Plan: monintor overnight discharge tomorrow return daily for remainder of antibiotic course close follow up with PCP Dr. 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 Review of Systems Musculoskeletal: leg pain Objective Exam General Appearance: No Apparent Distress, WD/WN, Chronically ill Respiratory: Chest Non Tender, Lungs Clear, Normal Breath Sounds, No Accessory Muscle Use, No Respiratory Distress Cardiovascular: Regular Rate, Rhythm, No Edema, No Gallop, No JVD, No Murmur, Normal Peripheral Pulses Neurologic/Psychiatric: Alert, Oriented x3, No Motor/Sensory Deficits, Normal Mood/Affect Skin: Normal Color, Warm/Dry, Other (improved erythema and edema left knee and leg) Assessment/Plan Assessment and Plan Assess & Plan/Chief Complaint IV abx for at least [address] Diagnosis/Problems Diagnosis/Problems (1) Cellulitis Status: Acute Qualifiers: Site of cellulitis: extremity Site of cellulitis of extremity: lower extremity Laterality: left Qualified Codes: L03.116 - Cellulitis of left lower limb (2) Essential (primary) hypertension Status: Chronic (3) Atrial fibrillation Status: Chronic Qualifiers: Atrial fibrillation type: chronic Qualified Codes: I48.2 - Chronic atrial fibrillation NICOLÁS MORALES STUDENT May 12, 2018 10:34 ZAYRA GUZMAN DO May 12, 2018 10:48
[2018-05-13 00:04] VITALS: BP 135/65
[2018-05-13 04:03] VITALS: BP 131/67
[2018-05-13 05:59] LABS: BASOPHILS % (AUTO) 0 % (0-10); EOSINOPHILS # (AUTO) 0.2 10^3/uL (0.0-0.3); EOSINOPHILS % (AUTO) 3 % (0-10); HEMATOCRIT 39 % (40-54); HEMOGLOBIN 13.4 G/DL (13.3-17.7); LYMPHOCYTES # (AUTO) 1.2 X 10^3 (1.0-4.0); LYMPHOCYTES % (AUTO) 14 % (12-44); MEAN CORPUSCULAR HEMOGLOBIN 31 PG (25-34); MEAN CORPUSCULAR HGB CONC 34 G/DL (32-36); MEAN CORPUSCULAR VOLUME 90 FL (80-99); MONOCYTES # (AUTO) 0.9 X 10^3 (0.0-1.0); MONOCYTES % (AUTO) 10 % (0-12); NEUTROPHILS # (AUTO) 6.3 X 10^3 (1.8-7.8); NEUTROPHILS % (AUTO) 72 % (42-75); PLATELET COUNT 294 10^3/uL (130-400); RED BLOOD COUNT 4.36 10^6/uL (4.35-5.85); RED CELL DISTRIBUTION WIDTH 12.4 % (10.0-14.5); WHITE BLOOD COUNT 8.6 10^3/uL (4.3-11.0)
[2018-05-13 06:34] LABS: ALANINE AMINOTRANSFERASE 24 U/L (0-55); ALBUMIN 3.4 GM/DL (3.2-4.5); ALKALINE PHOSPHATASE 56 U/L (40-136); BILIRUBIN,TOTAL 0.4 MG/DL (0.1-1.0); BUN/CREATININE RATIO 15; CALCIUM 9.1 MG/DL (8.5-10.1); CARBON DIOXIDE 24 MMOL/L (21-32); CHLORIDE 106 MMOL/L (98-107); CREATININE SERUM 0.65 MG/DL (0.60-1.30); GFR ESTIMATED > 60; GLUCOSE 94 MG/DL (70-105); POTASSIUM 4.1 MMOL/L (3.6-5.0); SODIUM 138 MMOL/L (135-145); TOTAL PROTEIN 6.9 GM/DL (6.4-8.2)
[2018-05-13 08:00] VITALS: BP 114/58
[2018-05-13] MEDS: BECLOMETHASONE DIPROPIONATE INH SCH (08:31)
[2018-05-13] MEDS: APIXABAN 5 MG (ELIQUIS) TABLET PO SCH (08:59)
[2018-05-13] MEDS: METOPROLOL SUCCINATE 200 MG PO SCH (09:00)
[2018-05-13] MEDS: SERTRALINE 50 MG (ZOLOFT) TABLET PO SCH (09:01)
[2018-05-13] MEDS: cefTRIAXone 1 GM/NS 50 ML IVPB IV SCH ×2 (09:02)
[2018-05-13] MEDS: DOCUSATE SODIUM 100 MG (COLACE) CAP PO SCH (09:02)
[2018-05-13] MEDS: SILVER SULFADIAZINE 400 GM CREAM TOP SCH (09:02)
[2018-05-13] MEDS: POLYETHYLENE GLYCOL 17 GM (MIRALAX) PACK PO SCH (09:02)
--- NOTE | 2018-05-13 10:59 | Discharge Summary-Hospitalist ---
NICOLÁS MORALES MED STUDENT 05/13/18 1059: Diagnosis/Chief Complaint Date of Admission May 09, 2018 at 15:39 Date of Discharge 05/13/18 Admission Diagnosis 1.recurrent major cellulitis left lower extremity. 2.history of atrial fibrillation, apparently in sinus rhythm following cardioversion approximately one year ago. Discharge Diagnosis (1) Cellulitis Status: Acute (2) Essential (primary) hypertension Status: Chronic (3) Atrial fibrillation Status: Chronic Discharge Summary Discharge Physical Exam Allergies: Coded Allergies: No Known Drug Allergies (Unverified , 05/09/18) Vitals & I&Os Vital Signs Date Time Temp Pulse Resp B/P (MAP) Pulse Ox O2 Delivery O2 Flow Rate FiO2 05/13/18 08:32 96 Room Air 05/13/18 08:00 97.9 67 22 114/58 (76) General Appearance: No Apparent Distress, WD/WN HEENT: Normal ENT Inspection Respiratory: Chest Non Tender, Lungs Clear, Normal Breath Sounds, No Accessory Muscle Use, No Respiratory Distress Cardiovascular: Regular Rate, Rhythm, No Edema, No Gallop, No JVD, No Murmur, Normal Peripheral Pulses Gastrointestinal: Normal Bowel Sounds, Non Tender, Soft Extremity: Normal Capillary Refill, Inflammation, Pedal Edema, Swelling (LLE) Skin: Warm/Dry, Erythema (LLE) Neurologic/Psychiatric: Alert, Oriented x3, No Motor/Sensory Deficits, Normal Mood/Affect Hospital Course This is a 62 yo male admitted for cellulitis of LLE. He was previously admitted for the same diagnosis and ultimately failed outpatient antibiotic. He was readmitted for worsening swelling, redness and heat of the knee as well as blistering of the skin this time. During this hospital stay he was placed on IV antibiotics via PICC line. We will discharge to home today and patient instructed to return as outpatient to receive the remainder of IV antibiotic course via PICC line. He will require close follow up with PCP Dr. Lopez. Labs (last 24 hrs) Laboratory Tests 05/13/18 05:40: White Blood Count 8.6, Red Blood Count 4.36, Hemoglobin 13.4, Hematocrit 39L, Mean Corpuscular Volume 90, Mean Corpuscular Hemoglobin 31, Mean Corpuscular Hemoglobin Concent 34, Red Cell Distribution Width 12.4, Platelet Count 294, Mean Platelet Volume 10.0, Neutrophils (%) (Auto) 72, Lymphocytes (%) (Auto) 14 , Monocytes (%) (Auto) 10, Eosinophils (%) (Auto) 3, Basophils (%) (Auto) 0, Neutrophils # (Auto) 6.3, Lymphocytes # (Auto) 1.2, Monocytes # (Auto) 0.9, Eosinophils # (Auto) 0.2, Basophils # (Auto) 0.0, Sodium Level 138, Potassium Level 4.1, Chloride Level 106, Carbon Dioxide Level 24, Anion Gap 8, Blood Urea Nitrogen 10, Creatinine 0.65, Estimat Glomerular Filtration Rate > 60, BUN/ Creatinine Ratio 15, Glucose Level 94, Calcium Level 9.1, Corrected Calcium 9.6 , Total Bilirubin 0.4, Aspartate Amino Transf (AST/SGOT) 27, Alanine Aminotransferase (ALT/SGPT) 24, Alkaline Phosphatase 56, Total Protein 6.9, Albumin 3.4 Microbiology 05/09/18 Blood Culture - Preliminary, Resulted No growth Patient resulted labs reviewed. Pending Labs Laboratory Tests 05/13/18 05:40: White Blood Count 8.6, Red Blood Count 4.36, Hemoglobin 13.4, Hematocrit 39, Mean Corpuscular Volume 90, Mean Corpuscular Hemoglobin 31, Mean Corpuscular Hemoglobin Concent 34, Red Cell Distribution Width 12.4, Platelet Count 294, Mean Platelet Volume 10.0, Neutrophils (%) (Auto) 72, Lymphocytes (%) (Auto) 14 , Monocytes (%) (Auto) 10, Eosinophils (%) (Auto) 3, Basophils (%) (Auto) 0, Neutrophils # (Auto) 6.3, Lymphocytes # (Auto) 1.2, Monocytes # (Auto) 0.9, Eosinophils # (Auto) 0.2, Basophils # (Auto) 0.0, Sodium Level 138, Potassium Level 4.1, Chloride Level 106, Carbon Dioxide Level 24, Anion Gap 8, Blood Urea Nitrogen 10, Creatinine 0.65, Estimat Glomerular Filtration Rate > 60, BUN/ Creatinine Ratio 15, Glucose Level 94, Calcium Level 9.1, Corrected Calcium 9.6 , Total Bilirubin 0.4, Aspartate Amino Transf (AST/SGOT) 27, Alanine Aminotransferase (ALT/SGPT) 24, Alkaline Phosphatase 56, Total Protein 6.9, Albumin 3.4 Discussion & Recommendations Discharge Planning: <30 minutes discharge planning Discharge Home Medications: Active Scripts Active Keflex (Cephalexin) 500 Mg Capsule 500 Mg PO BID Reported Enbrel (Etanercept) 50 Mg/1 Ml Pen.injctr 50 Mg INJ [place] Metoprolol Succinate 200 Mg Tab.er.24h 200 Mg PO DAILY Sertraline HCl 50 Mg Tablet 25 Mg PO DAILY TAKES 1/2 (50MG) TABLET Qvar Redihaler (Beclomethasone Dipropionate) 10.6 Gm Hfa.aeroba 1 Puff INH BID Co Q-10 (Ubidecarenone) 200 Mg Capsule 200 Mg PO DAILY Centrum Silver Men Tablet (Multivit-Min/FA/Lycopen/Lutein) 1 Each Tablet 1 Tab PO DAILY Eliquis (Apixaban) 5 Mg Tablet 5 Mg PO BID Instructions to patient/family Please see electronic discharge instructions given to patient. Clinical Quality Measures DVT/VTE Risk/Contraindication: Risk Factor Score Per Nursin RFS Level Per Nursing on Admit: 4+=Very High ZAYRA GUZMAN DO 05/13/18 1704: Diagnosis/Chief Complaint Discharge Diagnosis (1) Cellulitis and abscess of left leg Status: Acute (2) Essential (primary) hypertension Status: Chronic (3) Atrial fibrillation Status: Chronic (4) Leg laceration Status: Acute Discharge Summary Discharge Physical Exam Allergies: Coded Allergies: No Known Drug Allergies (Unverified , 05/09/18) General Appearance: No Apparent Distress, WD/WN Respiratory: Chest Non Tender, Lungs Clear, Normal Breath Sounds, No Accessory Muscle Use, No Respiratory Distress Cardiovascular: No Edema, No Gallop, No JVD, No Murmur, Normal Peripheral Pulses, Irregularly Irregular Extremity: Inflammation, Pedal Edema, Swelling (LLE) Neurologic/Psychiatric: Alert, Oriented x3, No Motor/Sensory Deficits, Normal Mood/Affect Hospital Course Patient was placed on IV abx empirically. Pain was controlled and patient was maintained on anticoagulation for AF and DVT px during this acute illness. Pt improved but since he failed PO abx he had midline placed and Rocephin will be given daily for 2 weeks and he will have close f/u with PCP. Discussion & Recommendations Discharge Planning: <30 minutes discharge planning Problem Qualifiers (1) Cellulitis: Site of cellulitis: extremity Site of cellulitis of extremity: lower extremity Laterality: left Qualified Codes: L03.116 - Cellulitis of left lower limb (2) Atrial fibrillation: Atrial fibrillation type: chronic Qualified Codes: I48.2 - Chronic atrial fibrillation (3) Leg laceration: Encounter type: sequela Laterality: left Qualified Codes: S81.812S - Laceration without foreign body, left lower leg, sequela NICOLÁS MORALES MED STUDENT May 13, 2018 10:59 ZAYRA GUZMAN DO May 13, 2018 17:04
[2018-05-13] MEDS ORDERED: SILV20CR14 TOP ×2 (11:10)
[2018-05-13] MEDS ORDERED: CEFT1PIG IV ×2 (11:10)
[2018-05-13 12:00] VITALS: BP 117/65
--- NOTE | 2018-05-17 10:59 | Physician Query Clarification ---
PQ-Further Specificity Admission/Discharge Admission Date: May 09, 2018 at 15:39 Discharge Date: May 13, 2018 at 14:45 The medical record reflects the following clinical scenario: History/Risk Factors: Cellulitis lt lower extremity Clinical Findings: redness/swelling lt lower extremity Treatment: IV ABX Question: Can you further specify where the PICC line terminates per the clinical indicators above? Please document below. 1. PICC line terminates in the superior vena cava 2. Upper vein not otherwise specified 3. Other, with explanation of the clinical findings. 4. Clinically undetermined, no explanation for the clinical findings. PHYSICIAN RESPONSE Can you specify per above: 2 In responding to this query, please exercise your independent professional judgment. The purpose of this communication is to more accurately reflect the complexity of your patients condition. The fact that a question is asked does not imply that any particular answer is desired or expected. Thank you for your timely response to this clarification. Requestors name: Anastasia THIS PHYSICIAN QUERY FORM IS A PERMANENT PART OF THE MEDICAL RECORD ANASTASIA CUEVAS May 17, 2018 10:59 ZAYRA GUZMAN DO May 18, 2018 13:14
== END 2018-05-13 14:45 | disposition home or self-care (01) | DRG 603 ==
LOC: EDUNIT# 13:42 → ER 13:43 → 4TH 15:39
PROVIDERS: ADMIT Internal Medicine; ATTEND Internal Medicine
PROC: 05HY33Z Insertion of Infusion Device into Upper Vein, Percutaneous Approach (ICD-10-PCS; principal; 2018-05-11)
DX: L03.116 Cellulitis of left lower limb (principal); M45.9 Ankylosing spondylitis of unspecified sites in spine; J45.909 Unspecified asthma, uncomplicated; I48.91 Unspecified atrial fibrillation; I10 Essential (primary) hypertension; M19.91 Primary osteoarthritis, unspecified site; Z79.899 Other long term (current) drug therapy; Z85.46 Personal history of malignant neoplasm of prostate; Z92.3 Personal history of irradiation; F31.9 Bipolar disorder, unspecified
CPT/HCPCS: 36415; 76937; 80053; 80202; 83605; 85025; 87040; 94640; 96365

== ENCOUNTER → 2018-05-15 | Outpatient (RCR) | payer BC ==
[2018-05-14] MEDS: CATHETER FLUSH 10 ML SYR IV PRN ×2 (09:30→09:57)
[2018-05-14] MEDS: cefTRIAXone 1 GM/NS 50 ML IVPB IV SCH ×2 (09:30)
[2018-05-14 09:58] VITALS: BP 116/68
[~2018-05-15] VITALS: Ht 172.7 cm; Wt 101.2 kg
[~2018-05-15] MED LIST changes: +CEFT1PIG IV; +NS (IVPB) 50 ML ONE; +SILV20CR14 TOP; +cefTRIAXone 1 GM/10 ML for IV (ROCEPHIN) ONE
[2018-05-15] MEDS: CATHETER FLUSH 10 ML SYR IV PRN ×2 (09:10→09:38)
[2018-05-15] MEDS: cefTRIAXone 1 GM/NS 50 ML IVPB IV SCH ×2 (09:11)
[2018-05-15 09:40] VITALS: BP 123/67
== END | disposition home or self-care (01) ==
LOC: SURG RCR 05-14 08:59
PROVIDERS: ATTEND Internal Medicine
DX: L03.116 Cellulitis of left lower limb (principal)
CPT/HCPCS: 96365

== ENCOUNTER → 2018-05-18 | Outpatient (CLI) | payer BC ==
[~2018-05-18] MED LIST changes: -NS (IVPB) 50 ML ONE; -cefTRIAXone 1 GM/10 ML for IV (ROCEPHIN) ONE
== END ==
LOC: LABNPT 19:49
DX: M70.52 Other bursitis of knee, left knee (principal)
CPT/HCPCS: 87070; 87205

== ENCOUNTER 2018-05-27 08:50 | Outpatient (RCR) | payer BC ==
[2018-05-16] MEDS: cefTRIAXone 1 GM/NS 50 ML IVPB IV SCH ×2 (09:22)
[2018-05-16] MEDS: CATHETER FLUSH 10 ML SYR IV PRN ×2 (09:22→09:52)
[2018-05-16 09:54] VITALS: BP 127/69
[2018-05-17] MEDS: CATHETER FLUSH 10 ML SYR IV PRN ×2 (09:15→09:44)
[2018-05-17] MEDS: cefTRIAXone 1 GM/NS 50 ML IVPB IV SCH ×2 (09:15)
[2018-05-17 09:45] VITALS: BP 114/65
[2018-05-18] MEDS: CATHETER FLUSH 10 ML SYR IV PRN ×2 (09:10→09:40)
[2018-05-18] MEDS: cefTRIAXone 1 GM/NS 50 ML IVPB IV SCH ×2 (09:10)
[2018-05-18 09:42] VITALS: BP 119/67
[2018-05-19] MEDS: cefTRIAXone 1 GM/NS 50 ML IVPB IV SCH ×2 (09:08)
[2018-05-19 09:10] VITALS: BP 110/64
[2018-05-19] MEDS: CATHETER FLUSH 10 ML SYR IV PRN (09:10)
[2018-05-20 08:57] VITALS: BP 128/74
[2018-05-20] MEDS: CATHETER FLUSH 10 ML SYR IV PRN (09:20)
[2018-05-20] MEDS: cefTRIAXone 1 GM/NS 50 ML IVPB IV SCH ×2 (09:20)
[2018-05-21] MEDS: cefTRIAXone 1 GM/NS 50 ML IVPB IV SCH ×2 (09:18)
[2018-05-21] MEDS: CATHETER FLUSH 10 ML SYR IV PRN (09:18)
[2018-05-21 09:55] VITALS: BP 123/67
[2018-05-22] MEDS: CATHETER FLUSH 10 ML SYR IV PRN (09:06)
[2018-05-22] MEDS: cefTRIAXone 1 GM/NS 50 ML IVPB IV SCH ×2 (09:06)
[2018-05-22 09:11] VITALS: BP 111/65
[2018-05-23 09:00] VITALS: BP 118/65
[2018-05-23] MEDS: CATHETER FLUSH 10 ML SYR IV PRN (09:05)
[2018-05-23] MEDS: cefTRIAXone 1 GM/NS 50 ML IVPB IV SCH ×2 (09:05)
[2018-05-24] MEDS: cefTRIAXone 1 GM/NS 50 ML IVPB IV SCH ×2 (09:15)
[2018-05-24] MEDS: CATHETER FLUSH 10 ML SYR IV PRN (09:15)
[2018-05-24 09:54] VITALS: BP 122/67
[2018-05-25 08:55] VITALS: BP 105/58
[2018-05-25] MEDS: CATHETER FLUSH 10 ML SYR IV PRN (09:05)
[2018-05-25] MEDS: cefTRIAXone 1 GM/NS 50 ML IVPB IV SCH ×2 (09:05)
[2018-05-26] MEDS: cefTRIAXone 1 GM/NS 50 ML IVPB IV SCH ×2 (09:04)
[2018-05-26 09:14] VITALS: BP 129/68
[2018-05-26 09:49] VITALS: BP 129/68
[~2018-05-27] VITALS: Ht 172.7 cm; Wt 101.2 kg
[2018-05-27 08:50] VITALS: BP 116/69
[~2018-05-27 08:50] MED LIST changes: +NS (IVPB) 50 ML ONE; +cefTRIAXone 1 GM/10 ML for IV (ROCEPHIN) ONE
[2018-05-27] MEDS: cefTRIAXone 1 GM/NS 50 ML IVPB IV SCH ×2 (09:00)
[2018-05-27] MEDS: CATHETER FLUSH 10 ML SYR IV PRN ×2 (09:01→09:35)
[2018-05-27 09:35] VITALS: BP 116/69
== END 2018-05-27 09:48 | disposition home or self-care (01) ==
LOC: SURG RCR 08:50
PROVIDERS: ATTEND Internal Medicine
DX: L03.116 Cellulitis of left lower limb (principal)
CPT/HCPCS: 96365; 99211

== ENCOUNTER → 2018-07-29 | Outpatient (CLI) | payer BC ==
[~2018-07-29] MED LIST changes: -NS (IVPB) 50 ML ONE; -cefTRIAXone 1 GM/10 ML for IV (ROCEPHIN) ONE
--- NOTE | 2018-07-29 14:13 | Diagnostic Imaging Report ---
PROCEDURE: US left lower extremity venous. TECHNIQUE: Multiple real-time grayscale images were obtained over the left lower extremity in various projections. Additional duplex Doppler and color Doppler images were also obtained. Left common femoral vein, left superficial femoral vein, and popliteal vein are all compressible with normal flow and response to augmentation. The visualized portions of the left deep femoral vein are patent. The left posterior tibial and peroneal veins are patent. IMPRESSION: 1. Negative for left lower extremity deep venous thrombosis. Dictated by: Dictated on workstation # [id number]
== END ==
LOC: RAD 12:46
PROVIDERS: ATTEND Nurse Practitioner Family
DX: I48.91 Unspecified atrial fibrillation (principal); I10 Essential (primary) hypertension; G47.33 Obstructive sleep apnea (adult) (pediatric); R60.0 Localized edema

== ENCOUNTER → 2020-01-29 | Outpatient (CLI) | payer BC | LOC: CARD 07:46 | PROVIDERS: ATTEND Internal Medicine Cardiovascular Disease | DX: I10 Essential (primary) hypertension (principal); I48.92 Unspecified atrial flutter; G47.33 Obstructive sleep apnea (adult) (pediatric); Z79.01 Long term (current) use of anticoagulants | CPT/HCPCS: 93306 ==

== ENCOUNTER → 2020-01-30 | Outpatient (CLI) | payer BC ==
[~2020-01-30] VITALS: Ht 172 cm; Wt 101.0 kg
[~2020-01-30] MED LIST changes: +CATHETER FLUSH 10 ML SYR IV PRN; +REGADENOSON 0.4 MG/5 ML SYR (LEXISCAN) IV ONE
[2020-01-30 09:15] VITALS: BP 137/70
--- NOTE | 2020-01-30 17:26 | STRESS TEST ---
DATE OF SERVICE: 01/30/2020 RESTING AND POST REGADENOSON TECHNETIUM-99M TETROFOSMIN SPECT CT IMAGING PRIMARY PHYSICIAN: Dr. Andrade. CLINICAL DIAGNOSES: Shortness of breath, palpitations, hypertension, atrial flutter. Baseline images were carried out after injection of 10.08 mCi of technetium-99m Tetrofosmin. This was followed by 0.4 mg regadenoson and 31.1 mCi of technetium-99m Tetrofosmin for stress imaging. The electrocardiogram showed sinus rhythm at baseline. It did not change significantly with the regadenoson infusion. The portion noted some shortness of breath following regadenoson infusion, which resolved in a few minutes. Review of images at rest and following stress indicates a somewhat patchy tracer uptake. There does not appear to be distinct evidence of myocardial ischemia or infarction. Gated images show normal global left ventricular systolic function with normal regional wall motion. Left ventricular ejection fraction is calculated to be 66%. Left ventricular end diastolic volume is 93 mL. TID is absent (1.02). CONCLUSIONS: 1. This study does not indicate evidence of significant myocardial ischemia or infarction. 2. Mild cardiomegaly. 3. Normal global left ventricular systolic function with ejection fraction of 66%. 4. No significant regional wall motion abnormalities seen on this study. Job ID: [id number] DocumentID: [id number] Dictated Date: 01/30/2020 15:56:07 Program Counselor Date: 01/30/2020 17:26:01 Dictated By: JACOB ANDRADE MD, MA, FACP, FACC,
== END ==
LOC: CARD 07:17
PROVIDERS: ATTEND Internal Medicine Cardiovascular Disease
DX: I48.92 Unspecified atrial flutter (principal); G47.33 Obstructive sleep apnea (adult) (pediatric); Z79.01 Long term (current) use of anticoagulants; I11.9 Hypertensive heart disease without heart failure
CPT/HCPCS: 78452; 93017; A9502

== ENCOUNTER 2020-07-17 16:37 | Emergency (ER) | payer BC ==
[~2020-07-17] VITALS: Ht 175 cm; Wt 102.0 kg
[~2020-07-17 16:37] MED LIST changes: -CATHETER FLUSH 10 ML SYR IV PRN; -REGADENOSON 0.4 MG/5 ML SYR (LEXISCAN) IV ONE
[2020-07-17] MEDS ORDERED: ACETAMINOPHEN 500 MG TAB (TYLENOL) PO ONE (17:15)
--- NOTE | 2020-07-17 18:52 | ED Respiratory ---
General Chief Complaint: Cough/Cold/Flu Symptoms Stated Complaint: FEVER/COUGH/HIGH BP/AFIB Nursing Triage Note: PT TO ROOM 8 PER W/C STATES HAS FEVER AND COUGH AND HAS PEOPLE AT WORK SICK W COVID Source: patient Exam Limitations: no limitations History of Present Illness Date Seen by Provider: Jul 17, 2020 Time Seen by Provider: 17:00 Initial Comments Patient is a 64-year-old male who presents to the emergency department today with a chief complaint of fever and dry cough. Patient states that he woke up this morning at about 3:00 and noticed that his heart rate was fast. He has a history of atrial fibrillation in the past and assumed that it was his A. fib. Patient states he was able to go to work today but when he got off work he states that he felt flushed and checked his temperature and realized that he had a fever. Patient has had sick contacts at work multiple people around him with coronavirus. He denies any chest pain, he denies significant shortness of breath. He does not have a sore throat nor a headache. He does still feel like his heart is racing. Patient reports no GI or symptoms. All other review of systems reviewed and negative except as stated. Timing/Duration: this afternoon Severity: moderate Associated Symptoms: cough, fever/chills Allergies and Home Medications Allergies Coded Allergies: No Known Drug Allergies (Unverified , 05/09/18) Home Medications Apixaban 5 Mg Tablet, 5 MG PO BID, (Reported) Beclomethasone Dipropionate 10.6 Gm Hfa.aeroba, 1 PUFF INH BID, (Reported) Ceftriaxone Na/Dextrose,Iso 1 Gm/50 Ml Piggyback, 1 GM IV DAILY Prescribed by: ZAYRA GUZMAN on 05/13/18 111 Etanercept 50 Mg/1 Ml Pen.injctr, 50 MG INJ Bassett, (Reported) Metoprolol Succinate 200 Mg Tab.er.24h, 200 MG PO DAILY, (Reported) Multivit-Min/FA/Lycopen/Lutein 1 Each Tablet, 1 TAB PO DAILY, (Reported) Sertraline HCl 50 Mg Tablet, 25 MG PO DAILY, (Reported) TAKES 1/2 (50MG) TABLET Silver Sulfadiazine 20 Gm Cream..g., 0 GM TOP BID Prescribed by: ZAYRA GUZMAN on 05/13/18 111 Ubidecarenone 200 Mg Capsule, 200 MG PO DAILY, (Reported) Patient Home Medication List Home Medication List Reviewed: Yes Review of Systems Review of Systems Constitutional: see HPI EENTM: no symptoms reported Respiratory: cough, short of breath Cardiovascular: no symptoms reported Gastrointestinal: no symptoms reported Genitourinary: no symptoms reported Musculoskeletal: joint pain (Chronic right hip pain; patient has a history of ankylosing spondylitis) Skin: no symptoms reported All Other Systems Reviewed Negative Unless Noted: Yes Past Osqnnim-Jwmkfi-Hzrfjs Hx Patient Social History Alcohol Use: Denies Use Recreational Drug Use: No Smoking Status: Never a Smoker 2nd Hand Smoke Exposure: No Recent Foreign Travel: No Contact w/Someone Who Travel: No Recent Infectious Disease Expo: No Recent Hopitalizations: No Physical Abuse: No Sexual Abuse: No Immunizations Up To Date Tetanus Booster (TDap): More than 5yrs Date of Pneumonia Vaccine: Apr 28, 2014 Date of Influenza Vaccine: May 02, 2018 Seasonal Allergies Seasonal Allergies: Yes (SOMETIMES) Past Medical History Surgeries: Yes Adenoidectomy, Cardiac, Gallbladder, Orthopedic, Tonsillectomy, Vasectomy Respiratory: Yes Asthma Cardiac: Yes (ATRAIL FLUTTER--S/P CARDIOVERSION 03/2017) Atrial Fibrillation, Hypertension, Irregular Heartbeat Neurological: No Genitourinary: Yes (PROSTATE CANCER) Prostate Problems Gastrointestinal: Yes (RT INGUINAL HERNIA) Abdominal Hernia Musculoskeletal: Yes (JOINT PROBLEMS; ANKLYOSING SPONDYLITIS) Arthritis, Chronic Back Pain Endocrine: No Loss of Vision: Bilateral Hearing Impairment: Denies Cancer: Yes Prostate Did You Recieve Any Treatments: Yes What Type of Treatment Did You: Radiation Psychosocial: Yes Bipolar, Depression Integumentary: Yes ("STAPH" INFECTION PRESUMED) Blood Disorders: No Family Medical History Cancer, Diabetes Physical Exam Vital Signs - First Documented 07/17/20 16:50 Temp 38.6 Pulse 93 Resp 24 B/P (MAP) 136/80 (98) Pulse Ox 96 Capillary Refill : Less Than 3 Seconds Height: 5'8.00" Weight: 223lbs. 0.0oz. 101.167907wv; 33.00 BMI Method:Stated General Appearance: WD/WN, no apparent distress Eyes: Bilateral Eye Normal Inspection, Bilateral Eye PERRL, Bilateral Eye EOMI HEENT: pharynx normal Neck: full range of motion, supple Respiratory: lungs clear, normal breath sounds, no respiratory distress, no accessory muscle use Cardiovascular: regular rate, rhythm Gastrointestinal: normal bowel sounds, non tender, soft Extremities: non-tender, normal inspection, no pedal edema Skin: normal color, warm/dry, other (Patient has a 3 x 3 cm area just medial and proximal to the left knee of erythema and induration. No surrounding lymphangitic streaking noted nontender, nonfluctuant) Procedures/Interventions Suture Size: 4-0 Progress/Results/Core Measures Suspected Sepsis Recent Fever Within 48 Hours: Yes Infection Criteria Present: Suspected New Infection New/Unexplained Altered Menta: No Sepsis Screen: Possible Sepsis Risk SIRS Temperature: Pulse: 93 Respiratory Rate: 24 Blood Pressure 136 /80 Mean: 98 Results/Orders Lab Results Laboratory Tests Test 07/17/20 17:05 Range/Units My Orders Orders - ZELDA JOHNS MD Acetaminophen Tablet (Tylenol Tablet) (07/17/20 17:15) Influenza A And B Antigens (07/17/20 17:22) Covid 19 Inhouse Test (07/17/20 17:22) Medications Given in ED Current Medications Medications Dose Ordered Sig/Miki Route Start Time Stop Time Status Last Admin Dose Admin Acetaminophen 1,000 mg ONCE ONCE PO 07/17/20 17:15 07/17/20 17:16 DC 07/17/20 17:20 1,000 MG Vital Signs/I&O 07/17/20 16:50 Temp 38.6 Pulse 93 Resp 24 B/P (MAP) 136/80 (98) Pulse Ox 96 Capillary Refill : Less Than 3 Seconds Blood Pressure Mean: 98 Progress Note : Time: 18:52 Progress Note Patient is a 64-year-old who presents to the emergency room with a chief complaint of fever and cough. Patient's coronavirus testing is positive today. Patient is also concerned about a small spider bite noted to the left inner knee. This does not appear to be cellulitic in nature it has some reactive erythema surrounding it. Patient has been doctoring it with "PRID". It does not need to be incised and drained at this time. Patient will be advised to self isolate for the next 10 days. He is encouraged to have any family members that he has close contact with also isolate for the next 14 days. He verbalizes understanding all questions are sought and answered and he is stable for discharge. Departure Impression Primary Impression: Coronavirus infection Additional Impression: Fever Qualified Codes: R50.9 - Fever, unspecified Disposition: 01 HOME, SELF-CARE Condition: Stable Departure-Patient Inst. Decision time for Depature: 18:54 Referrals: ZAYRA GUZMAN DO (PCP/Family) Primary Care Physician Patient Instructions: Coronavirus Disease 2019 (COVID-19) (DC) Add. Discharge Instructions: You will need to self isolate for the next 10 days due to your coronavirus infection. Any close contacts of yourself will need to be quarantined for the next 14 days. If you have worsening shortness of breath, cough, fever or any other emergent concerning symptoms please come back to the emergency department for reevaluation. Please contact your primary care doctor for an appointment for follow-up either this week or early next week. ZELDA JOHNS MD Jul 17, 2020 18:52
[2020-07-17 19:00] VITALS: BP 132/76
== END 2020-07-17 19:01 | disposition home or self-care (01) ==
LOC: EDUNIT# 16:37 → ER 16:39
DX: U07.1 COVID-19 (principal); I48.91 Unspecified atrial fibrillation; I10 Essential (primary) hypertension; J45.909 Unspecified asthma, uncomplicated; F32.9 Major depressive disorder, single episode, unspecified; Z83.3 Family history of diabetes mellitus; Z80.9 Family history of malignant neoplasm, unspecified; Z85.46 Personal history of malignant neoplasm of prostate; Z79.01 Long term (current) use of anticoagulants
CPT/HCPCS: 87804; 99282; U0002; 87635

== ENCOUNTER 2021-03-27 05:33 | Outpatient (CLI) | payer BC ==
[~2021-03-27] VITALS: Ht 172.7 cm; Wt 103.2 kg
[~2021-03-27 05:33] MED LIST changes: +SERT-413 PO; -SERT50TA9 PO; -SULF1TAB35 PO; +SULF1TAB38 PO
[2021-03-27] MEDS ORDERED: RT-ALBUINH IH (11:37)
[2021-03-27] MEDS ORDERED: DICL20GE TP (11:37)
== END 2021-03-27 12:10 | disposition home or self-care (01) ==
LOC: PREOP 05:33
PROVIDERS: ATTEND Surgery
DX: Z01.818 Encounter for other preprocedural examination (principal)

== ENCOUNTER 2021-04-03 08:23 | Day surgery (SDC) | payer BC ==
[~2021-04-03] VITALS: Ht 172.7 cm; Wt 103.2 kg
[2021-04-03] VITALS (11 sets, daily range): BP systolic 106–137; BP diastolic 58–89
[~2021-04-03 08:23] MED LIST changes: +DICL20GE TP; +RT-ALBUINH IH
[2021-04-03] MEDS ORDERED: ceFAZolin 2 GM IV Premixed 50 ML IV ONE (08:30)
[2021-04-03] MEDS: LACTATED RINGERS 1,000 ML IV PRN ×2 (08:49→11:28)
[2021-04-03] MEDS ORDERED: SEVOFLURANE (ULTANE) 15 ML INHAL SOLN ONE (09:17)
[2021-04-03] MEDS ORDERED: proPOfol 200 MG/20 ML (DIPRIVAN) VIAL IV ONE (09:17)
[2021-04-03] MEDS ORDERED: ONDANSETRON 4 MG/2 ML (SDV) Z0FRAN ONE (09:17)
[2021-04-03] MEDS ORDERED: fentaNYL INJ 100 MCG/2 ML AMP ONE (09:17)
[2021-04-03] MEDS ORDERED: MIDAZOLAM 2 MG/2 ML (VERSED) VIAL ONE (09:17)
[2021-04-03] MEDS ORDERED: ROCURONIUM 10 MG/ML 5 ML SYRINGE IV ONE (09:17)
[2021-04-03] MEDS ORDERED: LIDOCAINE PF 2% 5 ML (XYLOCAINE) VIAL ONE (09:17)
[2021-04-03] MEDS ORDERED: LIDOCAINE/EPI 1%-1:100,000 (XYLOCAINE) 20ML ONE (09:32)
[2021-04-03] MEDS ORDERED: NEOSTIGMINE 3 MG/3 ML VIAL ONE (11:22)
[2021-04-03] MEDS ORDERED: GLYCOPYRROLATE 0.2 MG/ML (ROBINUL) 2 ML VIAL ONE (11:22)
--- NOTE | 2021-04-03 11:37 | Progress Note-Post Operative ---
Post-Operative Progess Note Surgeon (s)/Refrigeration Engineering Teacher (s) Surgeon SAM CHRISTENSEN DO Refrigeration Engineering Teacher: Dr. Lara to assist in retraction dissection and closure. Pre-Operative Diagnosis RIGHT INGUINAL HERNIA Post-Operative Diagnosis Incarcerated right inguinal hernia and cord lipoma. Procedure & Operative Findings Date of Procedure 04/03/21 Procedure Performed/Findings PROCEDURE: Open incarcerated right inguinal hernia repair, excision cord lipoma COMPLICATIONS: None. INDICATIONS: The patient is a 65, male male with a inguinal hernia. He understands risks and benefits of procedure and wished to proceed with procedure. Consent was signed in the chart. DESCRIPTION OF PROCEDURE: The patient was taken to the operating suite, was prepped and draped in sterile fashion. Surgical pause was performed. Local anesthetic was infiltrated in the lower quadrant. Incision was made and cautery used to dissect down to the external oblique, which was then opened down through the external ring. The spermatic cord was then dissected around. A Kinmundy drain was placed around it and there was no direct defect present. An indirect hernia present which was then dissected off of spermatic cord. Fat incarcerated through the defect. Dissected free and reduced. The hernia sac was then twisted and suture ligated. Cord lipoma was dissected off of the spermatic cord. Using ProGrip mesh, this was secured at Zeke's ligament and then incorporated around the spermatic cord and placed under the external oblique. Hemostasis was achieved. The external oblique was then closed recreating the external ring and then the subcutaneous tissues were then reapproximated using 3-0 Vicryl and skin was then closed using 4-0 Monocryl in a subcuticular fashion. The abdomen was then washed and dried and Skin Affix was placed over the incision. The patient tolerated procedure well without any complications and taken to recovery room in stable condition. Anesthesia Type general Estimated Blood Loss Estimated blood loss (mL): minimal Specimens/Packing Specimens Removed hernia sac, cord lipoma SAM CHRISTENSEN DO Apr 03, 2021 11:37
[2021-04-03] MEDS ORDERED: ACHD5005 PO (11:39)
[2021-04-03] MEDS ORDERED: DOCU-143 PO (11:39)
--- NOTE | 2021-04-03 11:40 | Discharge Inst-Simple/Standard ---
Discharge Inst-Standard Discharge Medications New, Converted or Re-Newed RX: Transmitted to Pharmacy Patient Instructions/Follow Up Plan of Care/Instructions/FU: 3 weeks Christine Activity as Tolerated: No Discharge Diet: Regular Diet Other Inst to Patient Follow up Appt: Make appointment for 3 week. Instructions: No lifting greater than 10 pounds. No strenuous activity. May shower in 24 hours, no tub bath or soaking. Use incentive spirometer at home as directed. No Smoking Skin/Wound Care: You have special glue over your incision that will fall off on it's own. Symptoms to Report: Appetite Changes, Extremity Discoloration, Numbness/Tingling, Swelling Increased, Bleeding Excessive, Eyesight Changes, Pain Increased, Urine Color Change, Constipation(Persistent), Fever over 101 degree F, Pain/Pressure in chest, Urinating Difficulty, Cough Up/Vomit Blood, Heart Beat Irreg/Pounding, Pain/Pressure in jaw, Vaginal Bleeding Increase, Cramps in feet or legs, Lightheadedness, Pain/Pressure in shoulder, Diarrhea(Persistent), Memory Changes Suddenly, Questions/Concerns, Weight gain consecutive days, Dizziness/Fainting, Nausea/Vomiting, Shortness of Breath, Weight gain over 2 pounds If questions or concerns contact your physician Or seek help at emergency department. SAM CHRISTENSEN DO Apr 03, 2021 11:40
[2021-04-03] MEDS ORDERED: ONDANSETRON 4 MG/2 ML (SDV) Z0FRAN IVP PRN (11:45)
[2021-04-03] MEDS ORDERED: morphine INJ 10 MG/ML 1ML (SYR OR VIAL) IVP ONE (11:45)
[2021-04-03] MEDS ORDERED: fentaNYL INJ 100 MCG/2 ML AMP IVP ONE (11:45)
[2021-04-03] MEDS ORDERED: MEPERIDINE (DEMEROL) INJ 50 MG/ML IVP ONE (11:45)
--- NOTE | 2021-04-03 14:47 | Anesthesia-General Post-Op ---
General Patient Condition Mental Status/LOC: Same as Preop Cardiovascular: Satisfactory Nausea/Vomiting: Absent Respiratory: Satisfactory Pain: Controlled Complications: Absent Post Op Complications Complications None Follow Up Care/Instructions Patient Instructions None needed. Anesthesia/Patient Condition Patient Condition Patient is doing well, no complaints, stable vital signs, no apparent adverse anesthesia problems. No complications reported per nursing. AWILDA RATLIFF CRNA Apr 03, 2021 14:47
== END 2021-04-03 13:50 | disposition home or self-care (01) ==
LOC: SDC 08:23
PROVIDERS: ATTEND Surgery
DX: K40.30 Unilateral inguinal hernia, with obstruction, without gangrene, not specified as recurrent (principal); I10 Essential (primary) hypertension; I48.91 Unspecified atrial fibrillation; J45.909 Unspecified asthma, uncomplicated; G47.33 Obstructive sleep apnea (adult) (pediatric); M19.90 Unspecified osteoarthritis, unspecified site; F32.9 Major depressive disorder, single episode, unspecified; M45.9 Ankylosing spondylitis of unspecified sites in spine; G89.29 Other chronic pain; E66.9 Obesity, unspecified; Z68.34 Body mass index [BMI] 34.0-34.9, adult; I48.92 Unspecified atrial flutter; Z79.899 Other long term (current) drug therapy; Z79.01 Long term (current) use of anticoagulants; Z85.46 Personal history of malignant neoplasm of prostate; Z79.2 Long term (current) use of antibiotics; Z90.49 Acquired absence of other specified parts of digestive tract
CPT/HCPCS: 49507; 87081; C1781

== ENCOUNTER 2021-08-12 05:36 | Outpatient (CLI) | payer BC ==
[~2021-08-12] VITALS: Ht 173 cm; Wt 104.8 kg
[~2021-08-12 05:36] MED LIST changes: +ACHD5005 PO; +DOCU-143 PO
== END 2021-08-13 08:51 | disposition home or self-care (01) ==
LOC: PREOP 05:36
PROVIDERS: ATTEND Surgery
DX: Z01.818 Encounter for other preprocedural examination (principal)

== ENCOUNTER 2021-08-19 09:53 | Day surgery (SDC) | payer BC, MEDICARE ==
[~2021-08-19] VITALS: Ht 172.7 cm; Wt 104.8 kg
[2021-08-19] MEDS ORDERED: LACTATED RINGERS 1,000 ML IV STA (09:54)
[2021-08-19 10:35] VITALS: BP 122/77
[2021-08-19] MEDS ORDERED: MIDAZOLAM 2 MG/2 ML (VERSED) VIAL ONE (10:38)
[2021-08-19] MEDS ORDERED: PROPOFOL INJECTION 50 ML IV ONE (10:38)
--- NOTE | 2021-08-19 10:38 | Progress Note-Pre Operative ---
Pre-Operative Progress Note H&P Reviewed The H&P was reviewed, patient examined and no changes noted. Date Seen by Provider: Aug 19, 2021 Time Seen by Provider: 10:38 Date H&P Reviewed: Aug 19, 2021 Time H&P Reviewed: 10:38 Pre-Operative Diagnosis: screening colonoscopy SAM CHRISTENSEN DO Aug 19, 2021 10:38
[2021-08-19 11:20] VITALS: BP 91/52
--- NOTE | 2021-08-19 11:21 | Progress Note-Post Operative ---
Post-Operative Progess Note Surgeon (s)/Cell Operation Supervisor (s) Surgeon SAM CHRISTENSEN DO Cell Operation Supervisor: na Pre-Operative Diagnosis screening colonoscopy Post-Operative Diagnosis sigmoid polyp Procedure & Operative Findings Date of Procedure 08/19/21 Procedure Performed/Findings colonoscopy c snare polypectomy Anesthesia Type per delicatessen store manager Estimated Blood Loss Estimated blood loss (mL): none Specimens/Packing Specimens Removed sigmoid polyp SAM CHRISTENSEN DO Aug 19, 2021 11:21
--- NOTE | 2021-08-19 11:22 | Discharge Inst-Simple/Standard ---
Discharge Inst-Standard Patient Instructions/Follow Up Plan of Care/Instructions/FU: 2 weeks Christine. Hold blood thinner 2 more days. Activity as Tolerated: Yes Discharge Diet: Regular Diet SAM CHRISTENSEN DO Aug 19, 2021 11:22
[2021-08-19 11:25] VITALS: BP 92/53
[2021-08-19 11:30] VITALS: BP 85/48
[2021-08-19 11:50] VITALS: BP 115/74
[2021-08-19 12:03] VITALS: BP 115/74
--- NOTE | 2021-08-19 13:50 | Anesthesia-General Post-Op ---
MAC Patient Condition Mental Status/LOC: Same as Preop Cardiovascular: Satisfactory Nausea/Vomiting: Absent Respiratory: Satisfactory Pain: Controlled Complications: Absent Post Op Complications Complications None Follow Up Care/Instructions Patient Instructions None needed. Anesthesiology Discharge Order Discharge Order Patient is doing well, no complaints, stable vital signs, no apparent adverse anesthesia problems. No complications reported per nursing. DALE GARZA CRNA Aug 19, 2021 13:50
--- NOTE | 2021-08-19 15:45 | OPERATIVE REPORT ---
DATE OF SERVICE: 08/19/2021 PREOPERATIVE DIAGNOSIS: Screening colonoscopy. POSTOPERATIVE DIAGNOSIS: Sigmoid colon polyp. PROCEDURE: Colonoscopy with snare polypectomy. SURGEON: Sam King DO ANESTHESIA: Per SCIENTOLOGIST. ESTIMATED BLOOD LOSS: None. COMPLICATIONS: None. INDICATIONS: The patient is a 65-year-old male needing screening colonoscopy. He understands risks and benefits of procedure and wishes to proceed. Consent was signed in the chart. DESCRIPTION OF PROCEDURE: The patient was taken to the endoscopy suite, placed in left lateral recumbent position. Timeout was performed. Digital rectal exam was performed. No palpable polyps, masses or ulcerations. Scope was inserted in the rectum and advanced all the way to cecum with minimal difficulty. Scope was then slowly retracted back. No polyps, masses or ulcerations within the cecum, ascending, transverse, descending colon. In the sigmoid colon, a small polyp was present, which snare polypectomy was performed. This was then suctioned for pathology. Scope was then continuously retracted back into the rectum, where it was also retroflexed noting no other pathology. The scope was then returned to its normal position, slowly withdrawn until completely removed. The patient tolerated procedure well without any complications, taken to recovery room in stable condition. RECOMMENDATIONS: The patient will need repeat colonoscopy in 3 to 5 years depending other pathology. Any issues before that be seen at that time. Job ID: [id number] DocumentID: [id number] Dictated Date: 08/19/2021 11:27:05 Cattle Knocker Date: 08/19/2021 15:44:42 Dictated By: SAM KING DO
== END 2021-08-19 12:10 | disposition home or self-care (01) ==
LOC: ENDO 09:53
PROVIDERS: ATTEND Surgery
DX: Z12.11 Encounter for screening for malignant neoplasm of colon (principal); D12.5 Benign neoplasm of sigmoid colon; J45.909 Unspecified asthma, uncomplicated; G47.33 Obstructive sleep apnea (adult) (pediatric); E66.9 Obesity, unspecified; I48.92 Unspecified atrial flutter; Z85.46 Personal history of malignant neoplasm of prostate; Z79.899 Other long term (current) drug therapy; Z99.89 Dependence on other enabling machines and devices; Z68.35 Body mass index [BMI] 35.0-35.9, adult; Z79.01 Long term (current) use of anticoagulants; Z90.49 Acquired absence of other specified parts of digestive tract; Z90.89 Acquired absence of other organs; Z98.52 Vasectomy status; Z83.3 Family history of diabetes mellitus; Z80.9 Family history of malignant neoplasm, unspecified
CPT/HCPCS: 88305

== ENCOUNTER 2021-11-07 01:00 | Outpatient (RCR) | payer BC | END 2021-11-13 | disposition home or self-care (01) | LOC: ONC 01:00 | PROVIDERS: ATTEND Radiology Radiation Oncology | DX: Z51.0 Encounter for antineoplastic radiation therapy (principal); M61.9 Calcification and ossification of muscle, unspecified; I10 Essential (primary) hypertension; J45.909 Unspecified asthma, uncomplicated; Z79.01 Long term (current) use of anticoagulants; Z79.899 Other long term (current) drug therapy; Z96.641 Presence of right artificial hip joint | CPT/HCPCS: 77295; 77300; 77334; 77412; 77417; 77470; G0463; 99203; 99213 ==

== ENCOUNTER 2022-04-13 14:34 | Emergency (ER) | payer BC ==
[~2022-04-13] VITALS: Ht 175 cm; Wt 101.0 kg
[~2022-04-13 14:34] MED LIST changes: -ETAN50PE INJ; +ETAN50PE3 INJ
--- NOTE | 2022-04-13 15:18 | ED Back Pain ---
General Chief Complaint: Back Problems Stated Complaint: BACK PAIN,MUSCLE SPASMS, FELL Nursing Triage Note: ARRIVED VIA AMB TO ROOM 08 WITH COMPLAINTS OF MID BACK PAIN/SPAMS. 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 STATES HE TOOK A TRAMADOL AT [facility] THAT DID HELP WITH THE PAIN. Source of Information: Patient Exam Limitations: No Limitations History of Present Illness Date Seen by Provider: Apr 13, 2022 Time Seen by Provider: 15:17 Allergies and Home Medications Allergies Coded Allergies: No Known Drug Allergies (Unverified , 05/09/18) Patient Home Medication List Albuterol Sulfate (Proair Hfa) 1 Puff Puff, 1 PUFF IH Q4H PRN for SHORTNESS OF BREATH, (Reported) Entered as Reported by: YOLI CHI on 03/27/21 1137 Apixaban (Eliquis) 5 Mg Tablet, 5 MG PO BID, (Reported) Entered as Reported by: CARLOS ARAUJO on 04/08/17 0750 Beclomethasone Dipropionate (Qvar Redihaler) 10.6 Gm Hfa.aeroba, 1 PUFF INH BID, (Reported) Entered as Reported by: ELLE OLSON on 05/02/18 1434 Diclofenac Sodium (Voltaren Arthritis Pain) Unknown Strength Gel..gram., Unknown Dose TP DAILY, (Reported) Entered as Reported by: YOLI CHI on 03/27/21 1137 Docusate Sodium (Colace) 100 Mg Capsule, 100 MG PO BID Prescribed by: SAM CHRISTENSEN on 04/03/21 1139 Etanercept (Enbrel) 50 Mg/1 Ml Pen.injctr, 50 MG INJ Bassett, (Reported) Entered as Reported by: ELLE OLSON on 05/02/18 1434 Hydrocodone/Acetaminophen (Hydrocodone-Acetamin 5-325 mg) 1 Each Tablet, 1 EACH PO Q4H PRN for PAIN-MODERATE (5-7) Prescribed by: SAM CHRISTENSEN on 04/03/21 1139 Metoprolol Succinate (Metoprolol Succinate) 200 Mg Tab.er.24h, 200 MG PO DAILY, (Reported) Entered as Reported by: ELLE OLSON on 05/02/18 1434 Multivit-Min/FA/Lycopen/Lutein (Centrum Silver Men Tablet) 1 Each Tablet, 1 TAB PO DAILY, (Reported) Entered as Reported by: CARLOS ARAUJO on 04/08/17 0750 Sertraline HCl (Sertraline HCl) 50 Mg Tablet, 25 MG PO DAILY, (Reported) Entered as Reported by: ELLE OLSON on 05/02/18 1434 Ubidecarenone (Co Q-10) 200 Mg Capsule, 200 MG PO DAILY, (Reported) Entered as Reported by: ELLE OLSON on 05/02/18 1434 Past Cvivyqf-Eohwvt-Mskthn Hx Patient Social History Tobacco Use?: No Substance use?: No Alcohol Use?: No Immunizations Up To Date Tetanus Booster (TDap): More than 5yrs First/Initial COVID19 Vaccinat: - Third COVID19 Vaccination Date: 08-05 COVID19 Vaccine 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: [employer] Seasonal Allergies Seasonal Allergies: No Past Medical History Surgeries: Yes (LEFT HIP) Gallbladder, Orthopedic, Tonsillectomy, Vasectomy Respiratory: Yes Asthma, Sleep Apnea Currently Using CPAP: Yes Cardiac: Yes (A-FLUTTER WITH CARDIOVERSION) Palpitations Neurological: No Headaches /Migraines Genitourinary: Yes (PROSTATE CANCER) Prostate Problems Gastrointestinal: No Abdominal Hernia, Gall Bladder Disease Musculoskeletal: Yes (R HIP REPAIR) Arthritis, Chronic Back Pain Endocrine: No HEENT: No Loss of Vision: Bilateral Hearing Impairment: Denies Cancer: Yes Prostate Did You Recieve Any Treatments: Yes What Type of Treatment Did You: Radiation Psychosocial: No Bipolar, Depression Integumentary: No Blood Disorders: Yes (ANTICOAGULATED) Family Medical History Cancer, Diabetes Physical Exam Vital Signs Vital Signs - First Documented 04/13/22 14:40 Temp 37.3 Pulse 59 Resp 16 B/P (MAP) 140/71 (94) Pulse Ox 97 O2 Delivery Room Air Capillary Refill : Less Than 3 Seconds Height, Weight, BMI Height: 5'8.00" Weight: 223lbs. 0.0oz. 101.779341oy; 32.00 BMI Method:Stated Procedures/Interventions Suture Size: 4-0 Progress/Results/Core Measures Results/Orders Lab Results Laboratory Tests Test 04/13/22 15:50 Range/Units White Blood Count 8.5 4.3-11.0 10^3/uL Red Blood Count 4.70 4.30-5.52 10^6/uL Hemoglobin 14.2 13.3-17.7 g/dL Hematocrit 43 40-54 % Mean Corpuscular Volume 91 80-99 fL Mean Corpuscular Hemoglobin 30 25-34 pg Mean Corpuscular Hemoglobin Concent 33 32-36 g/dL Red Cell Distribution Width 13.1 10.0-14.5 % Platelet Count 195 130-400 10^3/uL Mean Platelet Volume 10.0 9.0-12.2 fL Immature Granulocyte % (Auto) 0 % Neutrophils (%) (Auto) 71 42-75 % Lymphocytes (%) (Auto) 15 12-44 % Monocytes (%) (Auto) 11 0-12 % Eosinophils (%) (Auto) 2 0-10 % Basophils (%) (Auto) 0 0-10 % Neutrophils # (Auto) 6.0 1.8-7.8 X 10^3 Lymphocytes # (Auto) 1.3 1.0-4.0 X 10^3 Monocytes # (Auto) 1.0 0.0-1.0 X 10^3 Eosinophils # (Auto) 0.2 0.0-0.3 10^3/uL Basophils # (Auto) 0.0 0.0-0.1 10^3/uL Immature Granulocyte # (Auto) 0.0 0.0-0.1 10^3/uL Sodium Level 140 135-145 MMOL/L Potassium Level 4.2 3.6-5.0 MMOL/L Chloride Level 102 98-107 MMOL/L Carbon Dioxide Level 28 21-32 MMOL/L Anion Gap 10 5-14 MMOL/L Blood Urea Nitrogen 12 7-18 MG/DL Creatinine 0.66 0.60-1.30 MG/DL Estimat Glomerular Filtration Rate 103 BUN/Creatinine Ratio 18 Glucose Level 89 70-105 MG/DL Calcium Level 9.4 8.5-10.1 MG/DL Corrected Calcium 9.4 8.5-10.1 MG/DL Total Bilirubin 0.7 0.1-1.0 MG/DL Aspartate Amino Transf (AST/SGOT) 25 5-34 U/L Alanine Aminotransferase (ALT/SGPT) 29 0-55 U/L Alkaline Phosphatase 56 40-136 U/L Total Protein 6.9 6.4-8.2 GM/DL Albumin 4.0 3.2-4.5 GM/DL My Orders Orders - BUD,STORMY D RADIO TIME BUYER Ct Thoracic Spine Wo (04/13/22 14:57) Cbc With Automated Diff (04/13/22 15:33) Comprehensive Metabolic Panel (04/13/22 15:33) Orphenadrine Inj (Ed Only) (Norflex Inje (04/13/22 16:00) Hydrocodone/Apap 5/325 Tablet (Lortab 5 (04/13/22 16:00) Ct Chest/Abdomen/Pelvis W (04/13/22 16:15) Iohexol Injection (Omnipaque 350 Mg/Ml 1 (04/13/22 16:30) Received Contrast (Hold Metformin- Contr (04/13/22 16:30) Ns (Ivpb) (Sodium Chloride 0.9% Ivpb Bag (04/13/22 16:30) Medications Given in ED Current Medications Medications Dose Ordered Sig/Miki Route Start Time Stop Time Status Last Admin Dose Admin Acetaminophen/ Hydrocodone Bitart 1 ea ONCE ONCE PO 04/13/22 16:00 04/13/22 16:01 DC 04/13/22 15:56 1 EA Iohexol 100 ml ONCE ONCE IV 04/13/22 16:30 04/13/22 16:31 DC 04/13/22 16:31 80 ML Orphenadrine Citrate 30 mg ONCE ONCE IVP 04/13/22 16:00 04/13/22 16:01 DC 04/13/22 15:56 30 MG Sodium Chloride 100 ml ONCE ONCE IV 04/13/22 16:30 04/13/22 16:31 DC 04/13/22 16:31 80 ML Vital Signs/I&O 04/13/22 14:40 Temp 37.3 Pulse 59 Resp 16 B/P (MAP) 140/71 (94) Pulse Ox 97 O2 Delivery Room Air Blood Pressure Mean: 94 Departure Impression Primary Impression: Fall on same level Additional Impressions: Muscle strain of upper back Spasm of back muscles Disposition: 01 HOME, SELF-CARE Condition: Stable Departure-Patient Inst. Decision time for Depature: 17:51 Referrals: ZAYRA GUZMAN DO (PCP/Family) Primary Care Physician Patient Instructions: Acute Pain, Adult, Back Muscle Strain (DC), Muscle Spasm ED Add. Discharge Instructions: Plan: 1. Follow up with your doctor if your symptoms persist. 2. May use ice 20 minutes at a time for swelling and comfort followed by 20 minutes of heat. 3. May use Flexeril 10mg by mouth every 8 hours as needed for muscle spasm. 4. May use Tylenol 1000mg by mouth every 8 hours for pain. 5. Return for any new, concerning, or worsening symptoms. All discharge instructions reviewed with patient and/or family. Voiced understanding. Scripts Cyclobenzaprine HCl (Cyclobenzaprine HCl) 10 Mg Tablet 10 MG PO Q8H PRN for SPASMS, #15 TAB 0 Refills Prov: HELEN FARRELL RADIO TIME BUYER 04/13/22 HELEN FARRELL APRN Apr 13, 2022 15:18
--- NOTE | 2022-04-13 15:30 | Diagnostic Imaging Report ---
PROCEDURE: CT thoracic spine without contrast. TECHNIQUE: Multiple axial computerized tomography images were obtained from the base of the thoracic spine to the vertex without intravenous contrast. Auto Exposure Controls were utilized during the CT exam to meet ALARA standards for radiation dose reduction. INDICATION: Back pain. COMPARISON: Comparison with previous CT chest of 11/26/2016. FINDINGS: Thoracic spine shows good alignment with mild scoliosis and kyphosis. There are no fractures seen. Facets show good alignment. There is no bony spinal stenosis. Mild narrowing of the disc space height in the midregion. No paraspinal masses with some hypertrophic lipping of the endplates. There is noted pleural calcification along the left chest. There is small pleural effusion noted bilaterally. There is peribronchial thickening with probable infiltrate and atelectasis in the lung bases bilaterally. IMPRESSION: 1. Thoracic spine shows [id number] degenerative changes with no acute abnormalities. 2. Pleural plaquing on the left with pleural effusions and bibasilar atelectasis and probable infiltrates, more severe on the right. Would consider CT scan of the chest. Pleural plaquing was present previously though the infiltrates and bronchial thickening was not. Dictated by: Dictated on workstation # [id number]
[2022-04-13 15:57] LABS: BASOPHILS % (AUTO) 0 % (0-10); EOSINOPHILS # (AUTO) 0.2 10^3/uL (0.0-0.3); EOSINOPHILS % (AUTO) 2 % (0-10); HEMATOCRIT 43 % (40-54); HEMOGLOBIN 14.2 g/dL (13.3-17.7); LYMPHOCYTES # (AUTO) 1.3 X 10^3 (1.0-4.0); LYMPHOCYTES % (AUTO) 15 % (12-44); MEAN CORPUSCULAR HEMOGLOBIN 30 pg (25-34); MEAN CORPUSCULAR HGB CONC 33 g/dL (32-36); MEAN CORPUSCULAR VOLUME 91 fL (80-99); MONOCYTES % (AUTO) 11 % (0-12); NEUTROPHILS % (AUTO) 71 % (42-75); PLATELET COUNT 195 10^3/uL (130-400); WHITE BLOOD COUNT 8.5 10^3/uL (4.3-11.0)
[2022-04-13] MEDS ORDERED: ORPHENADRINE 60 MG/2 ML (NORFLEX) AMP (ED ONLY) IVP ONE (16:00)
[2022-04-13] MEDS ORDERED: HYDROcodone/APAP 5 MG/325 MG (LORTAB) TAB PO ONE (16:00)
[2022-04-13 16:03] LABS: POTASSIUM 4.2 MMOL/L (3.6-5.0)
[2022-04-13 16:04] LABS: CALCIUM 9.4 MG/DL (8.5-10.1)
[2022-04-13 16:05] LABS: TOTAL PROTEIN 6.9 GM/DL (6.4-8.2)
[2022-04-13 16:07] LABS: BILIRUBIN,TOTAL 0.7 MG/DL (0.1-1.0)
[2022-04-13 16:09] LABS: CREATININE SERUM 0.66 MG/DL (0.60-1.30)
[2022-04-13] MEDS ORDERED: NS 100 ML (IVPB) BAG IV ONE (16:30)
[2022-04-13] MEDS ORDERED: HOLD METFORMIN - RECEIVED CONTRAST 20 ML VIAL IV SCH (16:30)
[2022-04-13] MEDS ORDERED: IOHEXOL 350 MG/ML 100 ML (OMNIPAQUE 350) VIAL IV ONE (16:30)
--- NOTE | 2022-04-13 17:24 | Diagnostic Imaging Report ---
PROCEDURE: CT chest, abdomen, and pelvis with contrast. TECHNIQUE: Multiple contiguous axial images were obtained through the chest, abdomen, and pelvis after the administration of intravenous contrast. Auto Exposure Controls were utilized during the CT exam to meet ALARA standards for radiation dose reduction. DATE: April 13, 2022. INDICATION: 66-year-old male, chest, abdominal, and back pain. History of prostate cancer. COMPARISON: CT chest November 26, 2016. FINDINGS: There is enhancing predominantly linear opacification in the right lower lobe most compatible with atelectasis. There is a trace right pleural effusion. There are left-sided pleural calcifications. There is a trace left pleural effusion. There are predominantly linear opacities in the left lower lobe and lingula most consistent with atelectasis. There is no identified pulmonary nodule or lung mass. There is no additional focal airspace consolidation. There is no pneumothorax. There is no identified central pulmonary embolus. The heart is not grossly enlarged. There is no pericardial effusion. There is no identified mediastinal, hilar, or axillary lymph node meeting CT size criteria for adenopathy. There is bilateral gynecomastia. The liver is unremarkable in size and contour. There is an 8 mm low-attenuation lesion in the left lobe of the liver on axial image 104 which is too small to characterize. The main, right, and left portal veins are patent. The gallbladder is surgically absent. There is no biliary ductal dilation. Unremarkable appearance of the pancreatic parenchyma. The spleen is normal in size. The adrenal glands are unremarkable. Unremarkable appearance of the renal parenchyma. The urinary collecting systems are not distended. There is no identified renal or ureteral stone. There are likely radiotherapy beads at the level of the prostate gland. There is streak artifact from a right total hip prosthesis which does somewhat limit evaluation of the adjacent structures including pelvis. The intestinal tract is not distended. There is a moderate to large volume colonic stool. There is no evidence of acute appendicitis. There is nonspecific binta mesenteric stranding. There is no free intraperineal air. There is no drainable fluid collection. There is no free fluid in the abdomen or pelvis. There is no identified abnormally enlarged lymph node in the abdomen or pelvis which meets CT size criteria for adenopathy. There is a healed prior fracture deformity of the right inferior pubic ramus. There is also a chronic appearing deformity of the right iliac bone. There is ankylosis across both sacroiliac joints. There are multilevel degenerative changes of the spine. There is a very high attenuation sclerotic lesion in a right anterior rib on axial image 42 measuring 7 mm in size. This is essentially unchanged since November 2016. This is most likely a benign bone island. There are multilevel flowing syndesmophytes of the spine extending along the vertebral body margins anteriorly. Findings are consistent with a seronegative spondyloarthropathy. There is no identified acute fracture. There is no identified bone lesion suspicious for a bone metastasis. IMPRESSION: 1. Ankylosis across the bilateral sacroiliac joints with multilevel flowing syndesmophytes of the spine consistent with a seronegative spondyloarthropathy such as ankylosing spondylitis, inflammatory bowel associated arthritis, psoriatic arthritis, or Amber's disease. 2. Trace bilateral pleural effusions with right and left lower lobe atelectasis. 3. Left pleural calcifications which could relate to sequela of prior hemothorax or empyema. 4. Bilateral gynecomastia. 5. No identified acute abnormality at the level of the chest, abdomen, or pelvis. 6. No identified metastatic lesion. Dictated by: Dictated on workstation # [id number]
[2022-04-13] MEDS ORDERED: CYCL10TA25 PO (17:57)
[2022-04-13] MEDS ORDERED: morphine INJ 4 MG/ML 1 ML (VIAL/SYRINGE) IVP ONE (18:00)
[2022-04-13] MEDS ORDERED: NS IV 1000 ML 1,000 ML IV SCH (18:00)
[2022-04-13] MEDS ORDERED: ONDANSETRON 4 MG/2 ML (SDV) Z0FRAN IVP ONE (18:00)
[2022-04-13 18:20] VITALS: BP 134/89
== END 2022-04-13 18:19 | disposition home or self-care (01) ==
LOC: EDUNIT# 14:34 → ER 14:36
DX: S29.012A Strain of muscle and tendon of back wall of thorax, initial encounter (principal); W18.30XA Fall on same level, unspecified, initial encounter; Y92.89 Other specified places as the place of occurrence of the external cause
CPT/HCPCS: 36415; 71260; 72128; 74177; 80053; 85025; 94664

== ENCOUNTER → 2022-05-29 | Outpatient (CLI) | payer BC ==
[~2022-05-29] MED LIST changes: +CYCL10TA25 PO
--- NOTE | 2022-05-29 12:42 | Diagnostic Imaging Report ---
PROCEDURE: US Venous Lower Ext [place]. TECHNIQUE: Multiple real-time grayscale images were obtained over the lower extremities in various projections, bilaterally. Additional duplex Doppler and color Doppler images were also obtained. INDICATION: Bilateral lower extremity edema. FINDINGS: There is no evidence of right or left lower extremity DVT. Both lower extremity deep venous systems demonstrate normal compressibility with normal response to augmentation and Valsalva. No fluid collection or mass is detected. IMPRESSION: No evidence of right or left lower extremity DVT. Dictated by: Dictated on workstation # [id number]
== END ==
LOC: RAD 11:16
PROVIDERS: ATTEND Nurse Practitioner Family
DX: R60.0 Localized edema (principal)
CPT/HCPCS: 93970

== ENCOUNTER → 2022-08-28 | Outpatient (CLI) | payer BC ==
[~2022-08-28] MED LIST changes: +ALBU8.5H6 IH; -RT-ALBUINH IH
== END ==
LOC: LAB 08:50
PROVIDERS: ATTEND Radiology Radiation Oncology
DX: C61 Malignant neoplasm of prostate (principal)
CPT/HCPCS: 36415; 84153

== ENCOUNTER 2022-09-16 05:50 | Outpatient (CLI) | payer BC ==
[~2022-09-16] VITALS: Ht 172.7 cm; Wt 105.7 kg
== END 2022-09-16 16:08 | disposition home or self-care (01) ==
LOC: PREOP 05:50
PROVIDERS: ATTEND Surgery
DX: Z01.818 Encounter for other preprocedural examination (principal)

== ENCOUNTER 2022-09-29 11:24 | Day surgery (SDC) | payer MEDICARE, BC ==
[~2022-09-29] VITALS: Ht 172.7 cm; Wt 105.7 kg
[2022-09-29] MEDS ORDERED: LACTATED RINGERS 1,000 ML IV STA (11:26)
[2022-09-29] MEDS ORDERED: ceFAZolin INJECTION 2,000 MG in NS (IVPB) 50 ML IV ONE (11:45)
--- NOTE | 2022-09-29 11:46 | Progress Note-Pre Operative ---
Pre-Operative Progress Note Date of Available H&P: Sep 29, 2022 Date H&P Reviewed: Sep 29, 2022 Time H&P Reviewed: 11:44 History & Physical: H&P Reviewed, Patient Examed, No changes noted Pre-Operative Diagnosis: Hx of Colon Polyps SAM CHRISTENSEN DO Sep 29, 2022 11:46
[2022-09-29 11:50] VITALS: BP 144/70
[2022-09-29] MEDS ORDERED: PROPOFOL INJECTION 50 ML IV ONE (12:33)
[2022-09-29 12:55] VITALS: BP 82/47
--- NOTE | 2022-09-29 12:58 | Progress Note-Post Operative ---
Post-Operative Progess Note Surgeon (s)/Cotton Picking Machine Operator (s) Surgeon SAM CHRISTENSEN DO Cotton Picking Machine Operator: N/A Pre-Operative Diagnosis Hx of Colon Polyps Post-Operative Diagnosis Normal Colon Procedure & Operative Findings Date of Procedure 09/29/22 Procedure Performed/Findings Colonoscopy Anesthesia Type per [employer] NET PROGRAMMER Estimated Blood Loss Estimated blood loss (mL): None Specimens/Packing Specimens Removed None SAM CHRISTENSEN DO Sep 29, 2022 12:58
--- NOTE | 2022-09-29 13:01 | Discharge Inst-Simple/Standard ---
Discharge Inst-Standard Patient Instructions/Follow Up Plan of Care/Instructions/FU: Reccomended 5yr f/u for repeat colonoscopy Activity as Tolerated: Yes Discharge Diet: No Restrictions SAM CHRISTENSEN DO Sep 29, 2022 13:01
[2022-09-29 13:04] VITALS: BP 83/45
[2022-09-29 13:10] VITALS: BP 89/48
[2022-09-29 13:35] VITALS: BP 89/48
--- NOTE | 2022-09-29 14:33 | Anesthesia-General Post-Op ---
MAC Patient Condition Mental Status/LOC: Same as Preop Cardiovascular: Satisfactory Nausea/Vomiting: Absent Respiratory: Satisfactory Pain: Controlled Complications: Absent Post Op Complications Complications None Follow Up Care/Instructions Patient Instructions None needed. Anesthesiology Discharge Order Discharge Order Patient is doing well, no complaints, stable vital signs, no apparent adverse anesthesia problems. No complications reported per nursing. SOCORRO GARCIA CRNA Sep 29, 2022 14:32
--- NOTE | 2022-09-29 18:38 | OPERATIVE REPORT ---
DATE OF SERVICE: 09/29/2022 PREOPERATIVE DIAGNOSIS: History of colon polyps. POSTOPERATIVE DIAGNOSIS: Normal colon. PROCEDURE: Colonoscopy. SURGEON: Sam King DO ANESTHESIA: Per KICKING MACHINE OPERATOR. ESTIMATED BLOOD LOSS: None. COMPLICATIONS: None. INDICATIONS: The patient is a 67-year-old male with a history of polyps. He understands risks and benefits of procedure and wished to proceed. Consent was signed and in chart. DESCRIPTION OF PROCEDURE: The patient was taken to endoscopy suite, placed in left lateral recumbent position. Timeout was performed. Digital rectal exam was performed. No palpable polyps, masses or ulcerations. Scope was inserted in the rectum, advanced all the way to the cecum with minimal difficulty. Prep was adequate. Scope was slowly retracted back. No polyps, masses or ulcerations in the cecum, ascending, transverse, descending and sigmoid colon. Once in the rectum, scope was retroflexed noting no other pathology. Scope was returned to its normal position, slowly withdrawn until completely removed. The patient tolerated the procedure well without complications, taken to recovery room in stable condition. RECOMMENDATIONS: The patient will need repeat colonoscopy in 5 years. Any issues before that, be seen at that time. Job ID: [id number] DocumentID: [id number] Dictated Date: 09/29/2022 13:02:31 Apprentice/Lineman Date: 09/29/2022 18:35:00 Dictated By: SAM KING DO
== END 2022-09-29 13:44 | disposition home or self-care (01) ==
LOC: ENDO 11:24
PROVIDERS: ATTEND Surgery
DX: Z12.11 Encounter for screening for malignant neoplasm of colon (principal); Z86.010 Personal history of colon polyps; Z79.01 Long term (current) use of anticoagulants; E66.9 Obesity, unspecified; Z68.35 Body mass index [BMI] 35.0-35.9, adult

== ENCOUNTER → 2023-02-25 | Outpatient (CLI) | payer MEDICARE, BC | LOC: LAB 14:24 | PROVIDERS: ATTEND Radiology Radiation Oncology | DX: C61 Malignant neoplasm of prostate (principal) | CPT/HCPCS: 36415; 84153 ==